=== PATIENT | male | born 1960 | race Caucasian/White ===

== ENCOUNTER 2017-10-26 13:36 | Inpatient (IN) ==
--- NOTE | 2017-10-26 13:42 | Emergency Department Note ---
Disposition Clinical Impression: NSTEMI (non-ST elevated myocardial infarction) Disposition: Admitted As Inpatient Condition: Fair General Adult HPI - General Chief complaint: ED Chest Pain Stated complaint: chest pain Time Seen by Provider: 10/26/17 13:39 Nursing Notes Reviewed: Yes Vital Signs Reviewed: Yes - Related Data Home Medications Medication Instructions Recorded Confirmed Albuterol Sulfate [Albuterol 2 puff IH QID PRN 10/26/17 10/26/17 Inhaler] Aspirin 81 mg PO DAILY 10/26/17 10/26/17 Budesonide/Formoterol 80/4.5 1 puff IH BID 10/26/17 10/26/17 [Symbicort 80/4.5] Carvedilol 12.5 mg PO BID 10/26/17 10/26/17 NIFEdipine [Nifedipine ER] 60 mg PO DAILY 10/26/17 10/26/17 Nicotine Polacrilex [Nicotine 2 mg BC QID PRN 10/26/17 10/26/17 Lozenge] Omeprazole [PriLOSEC] 20 mg PO DAILY 10/26/17 10/26/17 Tiotropium [Spiriva] 18 mcg IH 0700 10/26/17 10/26/17 hydrOXYzine HCl [Hydroxyzine HCl] 50 mg PO HS PRN 10/26/17 10/26/17 Allergies Allergy/AdvReac Type Severity Reaction Status Date / Time Erythromycin Base Allergy Anaphylaxis Verified 10/26/17 13:53 shellfish derived Allergy Anaphylaxis Verified 10/26/17 13:53 Course Vital Signs Temperature 98.1 F 10/26/17 13:39 Pulse Rate 79 10/26/17 13:39 Respiratory Rate 14 10/26/17 13:39 Blood Pressure 162/95 10/26/17 13:39 O2 Sat by Pulse Oximetry 97 10/26/17 13:39 Temperature 98.1 F 10/26/17 13:39 Pulse Rate 78 10/26/17 15:07 Respiratory Rate 16 10/26/17 15:07 Blood Pressure 160/90 10/26/17 15:07 O2 Sat by Pulse Oximetry 91 10/26/17 15:07 Oxygen Delivery Oxygen Delivery Room Air Medical Decision Making - MDM Narrative Medical decision making narrative: This documentation is done with the assistance of Dragon dictation. Despite efforts made to ensure accuracy, there may be inaccuracies in director of programming or spelling and typographical errors. I examined this patient and my medical decision-making was reviewed with the Resident Physician. I agree with the documented findings, disposition and treatment plan as described except to the extent set forth below. Patient presents today from the [facility], he was seen by Dr. Richey and myself, I agree with her evaluation and management plan, supervise care the patient's stay. Patient presented with follow-up with cardiology. He said they did an EKG and may have saw something abnormal and he was then sent to the urgent care who did a troponin that was 0.2 and they sent him over here. He denies any chest pain that he says is chronic pain it is difficult to tell if he has any pain in his chest or not. He did receive aspirin and nitroglycerin. Renalin do labs on him chest x-ray nitroglycerin trial and a workup he most likely will need admission. He is in agreement with this plan. 1420 hrs.: Patient in EKG performed shows a sinus rhythm, rate is 76, QRS is 91 , QTC is 44, left ventricular hypertrophy, does have Q waves in inferior leads. We have no old EKG here, however compared to the EKG done over there today +1 that was done 2017 about seeing acute changes. Chest X-Ray 10/26/17 13:40 IMPRESSION: Cardiomegaly. No radiographic evidence of acute pulmonary disease. D/ / Km Tafoya / Km Tafoya Interpreting Provider: Km Tafoya 1500 hrs.: Lab called patient's troponin is up to 0.37. Nitroglycerin trial and process. Were started him on heparin and speak with cardiology. We will also repeat an EKG. 1600 hrs.: Cardiology evaluated the patient and determined that since his troponin elevated. And with his history he would go to the [facility] dictating to the [facility] then he will be admitted to the hospital. Patient's in agreement this plan. Patient's critical care time exclusive any separately billable procedures is 40 minutes. He is started on IV heparin also. - Lab Data Result diagrams: 10/26/17 14:28 10/26/17 14:28 Lab Results 10/26/17 10/26/17 10/26/17 Range/Units 14:28 14:28 14:28 WBC 12.4 H (4.3-11.1) K/mcL RBC 4.52 (4.19-5.50) M/mcL Hgb 13.3 (12.9-16.9) g/dL Hct 40.7 (37.5-50.1) % MCV 90.0 (83.0-100.0) fL MCH 29.4 (28.0-33.3) pg MCHC 32.7 (31.6-35.5) g/dL RDW 13.5 (11.5-14.5) % Plt Count 254 (140-400) K/mcL MPV 10.8 (9.4-12.4) fL Immature Gran % 0.3 (0-4) % Seg Neutrophils % 68.1 % Lymphocytes % 21.4 % Monocytes % 7.2 % Eosinophils % 2.4 % Basophils % 0.6 % Neutrophils # 8.4 (1.6-8.9) K/mcL Lymphocytes # 2.7 (0.6-4.6) K/mcL Monocytes # 0.9 (0.0-1.3) K/mcL Eosinophils # 0.3 (0.0-0.6) K/mcL Basophils # 0.1 (0.0-0.2) K/mcL PT (9.4-12.1) Seconds INR APTT (26.0-36.0) Seconds Sodium 138 (136-145) mEq/L Potassium 3.8 (3.5-5.1) mEq/L Chloride 109 H (98-107) mEq/L Carbon Dioxide 22 L (23-29) mEq/L BUN 13 (6-20) mg/dL Creatinine 1.32 H (0.70-1.30) mg/dL Est GFR ( Amer) > 60 (> 60) Est GFR (Non-Af Amer) 56 L (> 60) BUN/Creatinine Ratio 10 (6-26) Glucose 100 (70-105) mg/dL Calculated Osmolality 286 (280-300) Calcium 9.3 (8.6-10.3) mg/dL Troponin I 0.37 H* (< 0.04) ng/mL B-Natriuretic Peptide (Less than 100) pg/mL 10/26/17 10/26/17 Range/Units 14:28 14:28 WBC (4.3-11.1) K/mcL RBC (4.19-5.50) M/mcL Hgb (12.9-16.9) g/dL Hct (37.5-50.1) % MCV (83.0-100.0) fL MCH (28.0-33.3) pg MCHC (31.6-35.5) g/dL RDW (11.5-14.5) % Plt Count (140-400) K/mcL MPV (9.4-12.4) fL Immature Gran % (0-4) % Seg Neutrophils % % Lymphocytes % % Monocytes % % Eosinophils % % Basophils % % Neutrophils # (1.6-8.9) K/mcL Lymphocytes # (0.6-4.6) K/mcL Monocytes # (0.0-1.3) K/mcL Eosinophils # (0.0-0.6) K/mcL Basophils # (0.0-0.2) K/mcL PT 11.6 (9.4-12.1) Seconds INR 1.1 APTT 36.5 H (26.0-36.0) Seconds Sodium (136-145) mEq/L Potassium (3.5-5.1) mEq/L Chloride (98-107) mEq/L Carbon Dioxide (23-29) mEq/L BUN (6-20) mg/dL Creatinine (0.70-1.30) mg/dL Est GFR ( Amer) (> 60) Est GFR (Non-Af Amer) (> 60) BUN/Creatinine Ratio (6-26) Glucose (70-105) mg/dL Calculated Osmolality (280-300) Calcium (8.6-10.3) mg/dL Troponin I (< 0.04) ng/mL B-Natriuretic Peptide 145 H (Less than 100) pg/mL
[2017-10-26 14:42] LABS: Basophils # 0.1 K/mcL (0.0-0.2); Basophils % 0.6 %; Eosinophils # 0.3 K/mcL (0.0-0.6); Eosinophils % 2.4 %; Hematocrit 40.7 % (37.5-50.1); Hemoglobin 13.3 g/dL (12.9-16.9); Immature Granulocytes % 0.3 % (0-4); Lymphocytes # 2.7 K/mcL (0.6-4.6); Lymphocytes % 21.4 %; Mean Corpuscular HGB Conc 32.7 g/dL (31.6-35.5); Mean Corpuscular Hemoglobin 29.4 pg (28.0-33.3); Mean Platelet Volume 10.8 fL (9.4-12.4); Monocytes # 0.9 K/mcL (0.0-1.3); Monocytes % 7.2 %; Neutrophils # 8.4 K/mcL (1.6-8.9); Platelet Count 254 K/mcL (140-400); Red Blood Count 4.52 M/mcL (4.19-5.50); Red Cell Distribution Width 13.5 % (11.5-14.5); Segmented Neutrophils % 68.1 %
[2017-10-26 14:54] LABS: BUN/Creatinine Ratio 10 (6-26); Blood Urea Nitrogen 13 mg/dL (6-20); Calcium 9.3 mg/dL (8.6-10.3); Carbon Dioxide 22 mEq/L (23-29); Chloride 109 mEq/L (98-107); Glucose 100 mg/dL (70-105); Osmolality,Calculated 286 (280-300); Potassium 3.8 mEq/L (3.5-5.1); Sodium 138 mEq/L (136-145); eGFR For African Americans > 60 (> 60); eGFR For Non-African Americans 56 (> 60)
[2017-10-26] MEDS ORDERED: Nitroglycerin 0.4 MG TAB.SUBL SL PRN (14:56)
[2017-10-26] MEDS ORDERED: *HR* Heparin 5,000 UNIT/ML VIAL IVP ONE ×3 (15:02→19:51)
[2017-10-26] MEDS ORDERED: *HR* Heparin 5,000 UNIT/ML VIAL IVP PRN ×5 (15:02→19:51)
[2017-10-26] MEDS ORDERED: 0.9 % Sodium Chloride 500 ML ONE (15:14)
[2017-10-26] MEDS ORDERED: Heparin 25,000 UNIT/500 ML D5W 25,000 UNIT/500 ML BAG IVC SCH (15:15)
[2017-10-26 15:19] LABS: INR 1.1; Prothrombin Time 11.6 Seconds (9.4-12.1)
[2017-10-26 15:22] LABS: Activated Partial Thrombo Time 36.5 Seconds (26.0-36.0)
[2017-10-26] MEDS ORDERED: Heparin 1,000 UNITS/500 mL 500 ML ONE (15:45)
[2017-10-26] MEDS ORDERED: 0.9 % Sodium Chloride 1,000 ML ONE (15:45)
[2017-10-26] MEDS ORDERED: *HR* Midazolam HCl 2 MG/2 ML VIAL ONE ×2 (15:45→16:34)
[2017-10-26] MEDS ORDERED: ISOVUE-370 200 ML INFUS..BTL IV ONE (15:46)
[2017-10-26] MEDS ORDERED: *HR* Heparin 10,000 UNIT/10 ML VIAL ONE (15:46)
[2017-10-26] MEDS ORDERED: Nitroglycerin 1,000 MCG/10 ML VIAL IV ONE (15:46)
[2017-10-26] MEDS ORDERED: *HR* Bivalirudin 250 MG VIAL IVC ONE (16:02)
[2017-10-26] MEDS ORDERED: methylPREDNISolone 125 MG/2 ML VIAL ONE (16:03)
--- NOTE | 2017-10-26 16:03 | Cardiology Consult Note ---
<Gisel Garcia - Last Filed: 10/26/17 16:04> Date of Encounter: 10/26/17 Time of Encounter: 16:02 Assessment and Plan (1) NSTEMI (non-ST elevated myocardial infarction) Current Visit: Yes Status: Acute Per cardiology: -Troponin at [place] 0.2, [facility] 0.[facility]. -Admits to current chest pain. -NItro drip and heparin drip ordered. -On asa, statin, beta quintin at home. -Urgent LHC for active chest pain, NSTEMI. RIsks versus benefits of LHC explained to pateint. Pateint states understanding and agreeable to proceed. -Recommend continuing home beta quinitn, asa, statin. -TTE. -Further recommendations pending LHC. Discussion w patient/family: The assessment and plan as outlined above was discussed with the patient who expressed understanding and agreement. All questions were answered. Thank you for involving us in the care of your patient. Please call with any questions. Discussed and reviewed with . History of Present Illness Consult date: 10/26/17 Requesting physician: Luis Juarez Consult reason: chest pain, nstemi Chief complaint: chest pain History of present illness: Mr. Freeman is a 57 year old male with a relevant past medical history of nephrectomy, HTN, family history of CAD. Patient presented to [facility] for chest pain. Troponin at [facility] noted to be 0.2. Patient admits to current chest pain 02/12. States he has chronic chest pain, however states this is worse than baseline. Also reports increased shortness of breath and increased fatigue. Patient reports his brother just had an ME and stenting 08/2017. Past Med Surg Social Fam HX - Past Medical History Attestation: Yes The following information was validated with the patient. Source: patient, old records reviewed Medical history: cancer, COPD, hypertension Psychiatric history: anxiety, depression - Social History Smoking Status: Current every day smoker Smokeless Tobacco Status: No Alcohol use: none Drug use: marijuana Medications and Allergies Albuterol Sulfate [Albuterol Inhaler] 2 puff IH QID PRN 10/26/17 [History] Aspirin 81 mg PO DAILY 10/26/17 [History] Budesonide/Formoterol 80/4.5 [Symbicort 80/4.5] 1 puff IH BID 10/26/17 [History ] Carvedilol 12.5 mg PO BID 10/26/17 [History] NIFEdipine [Nifedipine ER] 60 mg PO DAILY 10/26/17 [History] Nicotine Polacrilex [Nicotine Lozenge] 2 mg BC QID PRN 10/26/17 [History] Omeprazole [PriLOSEC] 20 mg PO DAILY 10/26/17 [History] Tiotropium [Spiriva] 18 mcg IH 0700 10/26/17 [History] hydrOXYzine HCl [Hydroxyzine HCl] 50 mg PO HS PRN 10/26/17 [History] 3 Allergy/AdvReac Type Severity Reaction Status Date / Time Erythromycin Base Allergy Anaphylaxis Verified 10/26/17 13:53 shellfish derived Allergy Anaphylaxis Verified 10/26/17 13:53 All Systems Review: The remainder of the systems were reviewed and are negative - Constitutional Constitutional: fatigue - Cardiovascular Cardiovascular: as per HPI, chest pain at rest, chest pain with exertion, dyspnea on exertion Physical Examination Vital Signs, Last 4 Hours Temp Pulse Resp BP Pulse Ox 10/26/17 15:07 78 16 160/90 91 10/26/17 13:39 98.1 F 79 14 162/95 97 General: Conversant, No Apparent Distress HEENT: Atraumatic, Normocephaly, Mucus Membranes Moist Neck: No JVD, Normal carotid pulses Cardiac: Reg Rate and Rhythm, Normal S1 and S2, No Murmur Lungs: Normal Breath Sounds, No Wheeze, Rales, Rhonchi Neuro: Alert and responsive, No focal deficits noted Abdomen: Soft, Non-Tender Skin: No rashes noted on visualized skin Musculoskeletal: No Chest Wall Tenderness Extremities: No Clubbing, No Cyanosis, Normal Pulses, Other (Mild bilateral pedal edema noted, non-pitting. ) Results 10/26/17 14:28 10/26/17 14:28 Lab Results Impressions Chest X-Ray 10/26/17 13:40 IMPRESSION: Cardiomegaly. No radiographic evidence of acute pulmonary disease. D/ / Km Tafoya / Km Tafoya Interpreting Provider: Km Tafoya Active Medications Heparin Sodium/Dextrose (Heparin 25,000 Unit/500 Ml D5w) 25,000 unit in 500 mls @ 19.809 mls/hr IVC .Q24H KIRSTIN; 10.3 UNIT/KG/HR PRN Reason: Protocol Stop: 04/27/18 15:16 Last Admin: 10/26/17 15:56 Dose: 10.3 unit/kg/hr, 19.809 mls/hr Nitroglycerin (Nitroglycerin) 0.4 mg SL Q5MIN PRN PRN Reason: Chest Pain Stop: 04/27/18 14:57 Last Admin: 10/26/17 15:18 Dose: 0.4 mg Laboratory Tests 10/26/17 10/26/17 10/26/17 14:28 14:28 14:28 WBC 12.4 H Creatinine 1.32 H Troponin I 0.37 H* - Imaging and Cardiology Chest Xray: report reviewed Cardiac cath: pending - EKG Interpretation EKG results cardiology: personally reviewed (ECG with SR) Consult Discharge Plan - Plan <Grover Alvarado - Last Filed: 10/27/17 07:26> Date of Encounter: 10/27/17 - Attending Attestation 57 [facility] and found to have elevated troponins. Patient is poor historian indicates senior living chest pain mixed with upper back and neck pain. Peak troponin .[address] changes on EKG. NSTEMI Peak troponin .[address] changes LHC, R/B/A discussed with pt and he agrees to proceed Assessment and Plan Discussion w patient/family: The assessment and plan as outlined above was discussed with the patient and/or family members who expressed understanding and agreement. All questions were answered. Thank you for involving us in the care of your patient. Please call with any questions. History of Present Illness History of present illness: Mr. Freeman is a 57 year old male All Systems Review: The remainder of the systems were reviewed and are negative Physical Examination Vital Signs, Last 4 Hours Temp Pulse Resp BP 10/27/17 04:20 98.6 F 62 17 143/91 Results 10/27/17 03:03 10/27/17 03:03 Lab Results 10/26/17 10/26/17 10/27/17 19:58 19:58 03:03 WBC 9.0 7.1 Hgb 13.5 13.2 Hct 42.0 40.8 Plt Count 241 232 INR 1.1 APTT 38.0 H Sodium Potassium Chloride Carbon Dioxide BUN Creatinine Glucose Calcium Magnesium 10/27/17 10/27/17 03:03 03:03 WBC Hgb Hct Plt Count INR APTT 58.6 H D Sodium 139 Potassium 3.7 Chloride 107 Carbon Dioxide 25 BUN 12 Creatinine 1.45 H Glucose 93 Calcium 8.7 Magnesium 1.9
--- NOTE | 2017-10-26 16:07 | Emergency Department Note ---
Disposition Clinical Impression: NSTEMI (non-ST elevated myocardial infarction) Disposition: Admitted As Inpatient Condition: Fair Referrals: NONE,PCP [Non-Partnered Physician] - Rei Trejo [Partnered Physician] - Forms: ED Satisfaction Letter Time of Disposition: 16:17 Chest Pain HPI - General Chief Complaint: ED Chest Pain Stated Complaint: chest pain Time Seen by Provider: 10/26/17 13:39 Source: patient, EMS Limitations: no limitations Vital Signs Reviewed: Yes Nursing Notes Reviewed: Yes - History of Present Illness HPI Narrative: Patient is a 57-year-old male who presents to [facility] ED from [place] [facility]. States he has a history of chronic chest pain and chronic back pain. He was in an outpatient appointment with a uniform cap operator who sent [place] over to the [place] care with concern for his symptoms. Lab work there showed an elevated troponin of 0.20. He was then sent over to our emergency department for further workup. Upon arrival, patient states he is still having chest pain but this is the pain he always has. Denies any nausea, vomiting, fever or chills. No recent illnesses. No abdominal pain, problems with urination or bowel movements. Pt complaint: chest pain Onset (ago): unknown Duration: constant Onset: during rest Pain Location: left chest Severity scale (1-10): 7 Quality: aching Pain Radiation: none Improves with: nothing Worsens with: nothing Associated symptoms: Denies: nausea, vomiting, dyspnea, fever, cough Treatments prior to arrival chest pain: none - Related Data Home Medications Medication Instructions Recorded Confirmed Albuterol Sulfate [Albuterol 2 puff IH QID PRN 10/26/17 10/26/17 Inhaler] Aspirin 81 mg PO DAILY 10/26/17 10/26/17 Budesonide/Formoterol 80/4.5 1 puff IH BID 10/26/17 10/26/17 [Symbicort 80/4.5] Carvedilol 12.5 mg PO BID 10/26/17 10/26/17 NIFEdipine [Nifedipine ER] 60 mg PO DAILY 10/26/17 10/26/17 Nicotine Polacrilex [Nicotine 2 mg BC QID PRN 10/26/17 10/26/17 Lozenge] Omeprazole [PriLOSEC] 20 mg PO DAILY 10/26/17 10/26/17 Tiotropium [Spiriva] 18 mcg IH 0700 10/26/17 10/26/17 hydrOXYzine HCl [Hydroxyzine HCl] 50 mg PO HS PRN 10/26/17 10/26/17 Allergies Allergy/AdvReac Type Severity Reaction Status Date / Time Erythromycin Base Allergy Anaphylaxis Verified 10/26/17 13:53 shellfish derived Allergy Anaphylaxis Verified 10/26/17 13:53 All systems ED: reviewed and negative except as stated. Chest Pain PMH - Past Medical History Medical history: Reports: cancer, COPD, hypertension Psychiatric history: Reports: anxiety, depression - Social History Smoking Status: Current every day smoker Alcohol use: Reports: none Drug use: Reports: marijuana Physical Exam - General Limitations: no limitations General appearance: alert, in no apparent distress - Head Head exam: atraumatic, normocephalic, normal inspection - Eye Eye exam: Present: normal appearance, PERRL, EOMI - ENT ENT exam: normal exam, normal oropharynx, mucous membranes moist - Neck Neck exam: Present: normal inspection, full ROM, trachea midline - Chest Chest inspection: Present: normal inspection, symmetric chest wall rise - Respiratory Respiratory exam: Present: normal lung sounds bilaterally - Cardiovascular Cardiovascular exam: Present: regular rate, normal rhythm, normal heart sounds - Abdominal Exam Abdominal exam: Present: soft, Non-Tender. Absent: tenderness, distention, guarding, rebound, rigidity - Extremities Exam Extremities exam: Present: normal inspection, full ROM. Absent: tenderness, pedal edema - Neurological Exam Neurological exam: Present: alert, oriented X3 - Psychiatric Psychiatric exam: Present: normal affect, normal mood - Skin Skin exam: Present: warm, dry, intact, normal color Course Course Narrative: Patient seen and examined. Chest pain that is chronic in nature. Does have an elevated troponin. Cardiopulmonary work up initiated. Patient received an [place] the [place]. Nitroglycerin ordered as well. We will reassess. - Reevaluation(s) Reevaluation #1: Lab work shows troponin elevated at 0.37. We will treat as an NSTEMI. Heparin drip ordered. I discussed with cardiology Dr. Alvarado who will see the patient in consult. After seeing the patient, they decided to take the patient to the [facility]. I discussed with hospitalist who has accepted patient for admission. Time: 16:16 Vital Signs Temperature 98.1 F 10/26/17 13:39 Pulse Rate 79 10/26/17 13:39 Respiratory Rate 14 10/26/17 13:39 Blood Pressure 162/95 10/26/17 13:39 O2 Sat by Pulse Oximetry 97 10/26/17 13:39 Temperature 98.1 F 10/26/17 13:39 Pulse Rate 78 10/26/17 15:07 Respiratory Rate 16 10/26/17 15:07 Blood Pressure 160/90 10/26/17 15:07 O2 Sat by Pulse Oximetry 91 10/26/17 15:07 Oxygen Delivery Oxygen Delivery Room Air Chest Pain - Medical Records Medical records reviewed: Yes I reviewed the patient's medical records. - Lab Data Lab results reviewed: Yes I reviewed the patient's lab results. Result diagrams: 10/26/17 14:28 10/26/17 14:28 Lab Results 10/26/17 10/26/17 10/26/17 Range/Units 14:28 14:28 14:28 WBC 12.4 H (4.3-11.1) K/mcL RBC 4.52 (4.19-5.50) M/mcL Hgb 13.3 (12.9-16.9) g/dL Hct 40.7 (37.5-50.1) % MCV 90.0 (83.0-100.0) fL MCH 29.4 (28.0-33.3) pg MCHC 32.7 (31.6-35.5) g/dL RDW 13.5 (11.5-14.5) % Plt Count 254 (140-400) K/mcL MPV 10.8 (9.4-12.4) fL Immature Gran % 0.3 (0-4) % Seg Neutrophils % 68.1 % Lymphocytes % 21.4 % Monocytes % 7.2 % Eosinophils % 2.4 % Basophils % 0.6 % Neutrophils # 8.4 (1.6-8.9) K/mcL Lymphocytes # 2.7 (0.6-4.6) K/mcL Monocytes # 0.9 (0.0-1.3) K/mcL Eosinophils # 0.3 (0.0-0.6) K/mcL Basophils # 0.1 (0.0-0.2) K/mcL PT (9.4-12.1) Seconds INR APTT (26.0-36.0) Seconds Sodium 138 (136-145) mEq/L Potassium 3.8 (3.5-5.1) mEq/L Chloride 109 H (98-107) mEq/L Carbon Dioxide 22 L (23-29) mEq/L BUN 13 (6-20) mg/dL Creatinine 1.32 H (0.70-1.30) mg/dL Est GFR ( Amer) > 60 (> 60) Est GFR (Non-Af Amer) 56 L (> 60) BUN/Creatinine Ratio 10 (6-26) Glucose 100 (70-105) mg/dL Calculated Osmolality 286 (280-300) Calcium 9.3 (8.6-10.3) mg/dL Troponin I 0.37 H* (< 0.04) ng/mL B-Natriuretic Peptide (Less than 100) pg/mL 10/26/17 10/26/17 Range/Units 14:28 14:28 WBC (4.3-11.1) K/mcL RBC (4.19-5.50) M/mcL Hgb (12.9-16.9) g/dL Hct (37.5-50.1) % MCV (83.0-100.0) fL MCH (28.0-33.3) pg MCHC (31.6-35.5) g/dL RDW (11.5-14.5) % Plt Count (140-400) K/mcL MPV (9.4-12.4) fL Immature Gran % (0-4) % Seg Neutrophils % % Lymphocytes % % Monocytes % % Eosinophils % % Basophils % % Neutrophils # (1.6-8.9) K/mcL Lymphocytes # (0.6-4.6) K/mcL Monocytes # (0.0-1.3) K/mcL Eosinophils # (0.0-0.6) K/mcL Basophils # (0.0-0.2) K/mcL PT 11.6 (9.4-12.1) Seconds INR 1.1 APTT 36.5 H (26.0-36.0) Seconds Sodium (136-145) mEq/L Potassium (3.5-5.1) mEq/L Chloride (98-107) mEq/L Carbon Dioxide (23-29) mEq/L BUN (6-20) mg/dL Creatinine (0.70-1.30) mg/dL Est GFR ( Amer) (> 60) Est GFR (Non-Af Amer) (> 60) BUN/Creatinine Ratio (6-26) Glucose (70-105) mg/dL Calculated Osmolality (280-300) Calcium (8.6-10.3) mg/dL Troponin I (< 0.04) ng/mL B-Natriuretic Peptide 145 H (Less than 100) pg/mL - Radiology Data Radiology results reviewed: Yes I reviewed the patient's radiology results. Chest X-Ray 10/26/17 13:40 IMPRESSION: Cardiomegaly. No radiographic evidence of acute pulmonary disease. D/ / Km Tafoya / Km Tafoya Interpreting Provider: Km Tafoya Heart Score - Score History: Slightly Suspicious EKG: Non Specific repolarisation Disturbance Age: 45-65 Risk Factors: 1-2 risk factors Troponin: Greater than 3x normal limit HEART Score Total: 5
--- NOTE | 2017-10-26 16:12 | Electrocardiograph Report ---
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
--- NOTE | 2017-10-26 16:24 | Pre-Sedation Evaluation ---
Pre-sedation evaluation - Pre-sedation checklist Date of procedure: 10/26/17 Procedure: left heart cath Recent Vitals: Last Vital Signs Temp 98.1 F 10/26/17 13:39 Pulse 78 10/26/17 15:07 Resp 16 10/26/17 15:07 BP 160/90 10/26/17 15:07 Pulse Ox 91 10/26/17 15:07 H&P (including ROS) documented in medical record: Yes Previous reaction to sedatives/anesthetics: No Dietary Status: NPO 6 hours prior to procedure Airway Assessment: Patient can open mouth completely, TMJ function normal Dentition: No loose teeth or bridges Possible difficult airway: No ASA Classification *see protocol: CLASS III-Severe systemic disease Plan of Care: Pt appropriate candidate for procedure/moderate/conscious sedation , Risks/benefits of procedure/sedation discussed w/ patient/family, If not NPO; Risk of intake outweiged by necessity to perform procedure
[2017-10-26] MEDS ORDERED: Acetaminophen 325 MG TABLET PO PRN (16:26)
[2017-10-26] MEDS ORDERED: Naloxone 0.4 MG/ML INJ IVP PRN (16:26)
[2017-10-26] MEDS ORDERED: hydrOXYzine pamoate 25 MG CAPSULE PO PRN (16:28)
--- NOTE | 2017-10-26 16:32 | Internal Med History&Physical ---
Date of Encounter: 10/26/17 Time of Encounter: 16:30 Assessment and Plan (1) NSTEMI (non-ST elevated myocardial infarction) Current visit: No Status: Acute On heparin and nitro drip. Plans for [facility]. Already on ASA and Coreg at home. Will add statin. Rest of cardiac meds adjustments per cardiology. TTE ordered per cardio. Admit to tele. (2) HTN (hypertension) Current visit: No Status: Acute Resume Coreg. BP is elevatd at 160/90. Will see what it is post heart cath and make adjustments as needed. Also on Nifedipine Qualifiers: Hypertension type: essential hypertension Qualified Code(s): I10 - Essential (primary) hypertension (3) GERD (gastroesophageal reflux disease) Current visit: No Status: Acute on PPI Qualifiers: Esophagitis presence: without esophagitis Qualified Code(s): K21.9 - Gastro -esophageal reflux disease without esophagitis (4) DVT prophylaxis Current visit: No Status: Acute heparin drip currently Internal Medicine - H&P: HPI Chief complaint: Chest pain Admitted From: Home Plans for Post Hospital Care: Home History of present illness: Mr. Freeman is a 57 year old male with PMH of HTN and COPD, tobacco abuse who [facility] that is worse than his baseline. Has chronic chest pain. Trops were noted to be elevated at .2 and was sent here. EKG with no acute ST or T wave changes. Repeat trop went up to .37. Hemodynamcially stable. Was started on a heparin and Nitro drip and cardiology were contacted and are taking him to laboratory courier for left heart catheterization. Denies fever, chilss, headache, blurry vision, nausea, vomiting, shortness of breath, abdomainl pain, urinary symptoms, or neurological symptoms. Past Med Surg Social Fam HX - Past Medical History Medical history: cancer, COPD, hypertension Psychiatric history: anxiety, depression - Social History Smoking Status: Current every day smoker Smokeless Tobacco Status: No Alcohol use: none Drug use: marijuana Internal Medicine - H&P: Meds Albuterol Sulfate [Albuterol Inhaler] 2 puff IH QID PRN 10/26/17 [History] Aspirin 81 mg PO DAILY 10/26/17 [History] Budesonide/Formoterol 80/4.5 [Symbicort 80/4.5] 1 puff IH BID 10/26/17 [History ] Carvedilol 12.5 mg PO BID 10/26/17 [History] NIFEdipine [Nifedipine ER] 60 mg PO DAILY 10/26/17 [History] Nicotine Polacrilex [Nicotine Lozenge] 2 mg BC QID PRN 10/26/17 [History] Omeprazole [PriLOSEC] 20 mg PO DAILY 10/26/17 [History] Tiotropium [Spiriva] 18 mcg IH 0700 10/26/17 [History] hydrOXYzine HCl [Hydroxyzine HCl] 50 mg PO HS PRN 10/26/17 [History] 3 Allergy/AdvReac Type Severity Reaction Status Date / Time Erythromycin Base Allergy Anaphylaxis Verified 10/26/17 13:53 shellfish derived Allergy Anaphylaxis Verified 10/26/17 13:53 All Systems PM: A 10-system review of systems was performed and is negative for pertinent findings except as documented above in the HPI. Review of systems: All systems reviewed are negative except for what is mentioned above - Constitutional Vitals: Temp Pulse Resp BP Pulse Ox 98.1 F 78 16 160/90 91 10/26/17 13:39 10/26/17 15:07 10/26/17 15:07 10/26/17 15:07 10/26/17 15:07 Exam: GEN: NAD HEENT: AT, NC, No cyanosis, oral mucosa is moist, No JVD Lymphatics: No lymphadenoapthy Eyes: Extrocular muscles intact, anicteric CVS:RRR. S1, S2, No m/r/g RESP: CTAB ABD: Soft, NT, ND, +BS EXT: 2+ LE edema, No rashes, 2+ DP NEURO: Nonfocal, CN II-XII intact, No focal motor or sensory deficits Psych: Cooperative, Not anxious or depressed Internal Med - H&P Results - Labs CBC & Chem 7: 10/26/17 14:28 10/26/17 14:28 Labs: Short CBC 10/26/17 Range/Units 14:28 WBC 12.4 H (4.3-11.1) K/mcL Hgb 13.3 (12.9-16.9) g/dL Hct 40.7 (37.5-50.1) % Plt Count 254 (140-400) K/mcL Neutrophils # 8.4 (1.6-8.9) K/mcL BMP 10/26/17 14:28 Sodium 138 Potassium 3.8 Chloride 109 H Carbon Dioxide 22 L BUN 13 Creatinine 1.32 H Glucose 100 Calcium 9.3 Cardiac Enzymes 10/26/17 Range/Units 14:28 Troponin I 0.37 H* (< 0.04) ng/mL - Impressions ITS Impressions Chest X-Ray 10/26/17 13:40 IMPRESSION: Cardiomegaly. No radiographic evidence of acute pulmonary disease. D/ / Km Tafoya / Km Tafoya Interpreting Provider: Km Tafoya
--- NOTE | 2017-10-26 16:44 | Event Note ---
Date of Encounter: 10/26/17 Time of Encounter: 16:41 Patient was seen and examined. Agree with the H&P as written by Arvin Perdomo NP. Patient sent after HD with fatigue, nonproductive cough, decreased appetite, and shortness of breath. Temp 100.2 on arrival. Hypoxic 84% on RA. CXR with findings of pleural effusion and possibly infiltrate. Hypoxia is possibly multifactorial with volume overload and HCAP. Will treat as HCAP and ask nephrology to follow along. Labs are consistent with ESRD. Hgb 9.9 is around baseline. Likely anemia of chronic disease.
[2017-10-26] MEDS ORDERED: 0.9 % Sodium Chloride 1,000 ML IVC SCH (17:00)
--- NOTE | 2017-10-26 17:02 | Invasive Diagnostic Lab Proc ---
Name: Georges Freeman Segundo Date of Study: 10/26/2017 Date: 1960 Ht: 69.0in Medical Record#: [id number] Age: 57 Wt: 212.08lb Gender: Male BSA: 2.12 Order #: [id number] BMI: 31.3 Physicians Procedure Physician: Jm Henry DO Referring MD: Referring MD: Staff Name Position Time In Densie Lott RN Air Quality Technician 04:16 PM Nisha Gamble RN Nurse 04:17 PM Janet Bernal RT (R) Scrub 04:17 PM Sites, Tiffany RT (R) Monitor 04:17 PM Indications Indication Non-Stemi Procedures Performed Procedure L HRT ARTERY/VENTRICLE ANGIO Pre-Procedure Checklist Informed consent is complete signed and on chart. H&P is on chart. ID band is on and ID verified with patient. Patient NPO for procedure The procedure was described for the patient and questions were answered. Blood Pressure: 152/92 ECG is on chart. Rhythm: NSR Plan of Care Patient will tolerate the procedure without complications. Adequate level of comfort will be maintained. Hemodynamics will remain stable Patient will recover from procedure without complications. Respiratory function will be maintained. Cardiac rhythm will remain stable. Patient temperature will be maintained. Patient and/or family have verbalized understanding of the procedure. Patient Education Chief Complaint/Reason for Test: Cardiac Cath Developmental Category: Adult (18-64 years) Developmentally Appropriate for Age: Yes Learning Barriers: None Education Needs: Procedure Education Method: Verbal Information Taught: Cardiac Cath Educational Evaluation: Able to repeat information Intravenous Access Time IV Size Location DC'd Fluid/Drip Rate Units RN 20g 1 /" Patent On Arrival Lt Wrist 0.9NaCl 25 ml/hr Denise Lott RN Allergies Erythromycin Base shellfish derived Vital Signs Time BP (mmHg) HR (bpm) O2 Sat. RR (bpm) LOC 04:21 PM / % 5 = Fully awake and oriented or at pre-proc level 04:21 PM / % 4 = Oriented but drowsy 04:20 PM 152 / 92 92 92 % 23 04:24 PM 136 / 85 82 92 % 12 04:29 PM 136 / 82 76 88 % 24 04:34 PM 136 / 84 73 90 % 27 04:39 PM 143 / 76 75 85 % 30 04:44 PM 153 / 84 72 92 % 25 Procedural Medications Time Medication Dose Units Method Given By 04:21 PM Oxygen 2 L/min nasal cannula Denise Lott RN 04:21 PM Versed 2 mg Intravenous Denise Lott RN 04:34 PM Lidocaine 2% 10 ml Subcutaneous Jm Henry DO 04:35 PM Versed 1 mg Intravenous Denies Lott RN ASA Classification: CLASS III- Severe systemic disease (i.e. prior AMI, diabetes with vascular complications, morbid obesity) Bridget Score Preprocedure Postprocedure Activity 2- Moves 4 extremities sustained head lift Activity 2- Moves 4 extremities sustained head lift Circulation 2- SBP +/= 20 points of pre-anesthetic level Circulation 2- SBP +/= 20 points of pre-anesthetic level Consciousness 2- Awake and alert oriented x 3 Consciousness 2- Awake and alert oriented x 3 O2 Saturation 2- Able to maintain O2 satruation of 92% on room air O2 Saturation 2- Able to maintain O2 satruation of 92% on room air Respiratory 2- Able to deep breathe and cough well Respiratory 2- Able to deep breathe and cough well Total Score 10 Total Score 10 Contrast Agent: Isovue Diagnostic Contrast: 40 ml Total Contrast: 40 ml Fluoro Dose: 220 mGy Procedure Log Time Note Enter By 03:55 PM CathStat 04:00 PM Patient charges- Angio tray pack, Navilyst 3mm J, Pulse Oximetry and ACIST tubing and transducer [email or web address] 04:00 PM IV Supplies used: J loop Angio Cath. [email or web address] 04:00 PM Case Delayed No [email or web address] 04:13 PM Pt arrived to lab intern 2 at 16:13 No Family with Patient [email or web address] 04:15 PM Physician arrived 16:15 [email or web address] 04:15 PM Meet and greet completed [email or web address] 04:15 PM Sign in performed according to hospital policy. [email or web address] 04:17 PM Denise Lott RN Position: Air Quality Technician Time in: 16:16 [email or web address] 04:17 PM Nisha Gamble RN Position: Nurse Time in: 16:17 [email or web address] 04:17 PM Janet Bernal RT (R) Position: Scrub Time in: 16:17 [email or web address] 04:18 PM Tiffany Ortiz RT (R) Position: Monitor Time in: 16:17 [email or web address] 04:18 PM Hair removed from procedure site in holding area using clippers. Bilateral groin prepped with Chloraprep by Nisha Gamble RN, then patient was draped. Skin intact. [facility] 04:18 PM Case Start 04:18 PM Procedure start 16:18 [facility] 04:18 PM Vitals capture started with the following parameters, Patient=Adult, Interval=5 min, Initial Nwqsremy=844 mmHg, Deflation Rate=5 mmHg, Cuff placed on Right Arm 04:20 PM HR=92 bpm, PVKP=009/92 mmhg, SpO2=92.0 %, Resp=23 B/min 04:20 PM Recorded ECG: HR=85 Condition=Condition 1 04:21 PM Time: 16:21 Oxygen on at 2 L/min per nasal cannula by [facility] 04:21 PM Time: 16:21 Versed 2 mg Intravenous Given by Denise Lott RN psychiatric 04:21 PM Time: 16:21 Patient comfortable and pain free: Yes [facility] :21 PM Time: 16:21LOC: 5 = Fully awake and oriented or at pre-proc level tsites 04:21 PM Clinical Presentation: Non-STEMI tsites 04:24 PM HR=82 bpm, RXHK=601/85 mmhg, SpO2=92.0 %, Resp=12 B/min 04:24 PM Pressure channel 1 zeroed. 04:29 PM HR=76 bpm, WKBW=618/82 mmhg, SpO2=88.0 %, Resp=24 B/min 04:34 PM Time out performed according to hospital policy tsites 04:34 PM HR=73 bpm, UQTI=496/84 mmhg, SpO2=90.0 %, Resp=27 B/min 04:34 PM Time: 16:34 10 ml Lidocaine 2% to right groin Subcutaneous Given by Jm Henry DO tsites 04:35 PM Time: 16:35 Versed 1 mg Intravenous Given by Denise Lott [facility] 04:37 PM Time: 16:21LOC: 4 = Oriented but drowsy tsites 04:37 PM Time: 16:21 Patient comfortable and pain free: Yes tsites 04:37 PM Micro-Introducer Kit utilized for sheath placement tsites 04:37 PM Access obtained by percutaneous puncture. 6Fr 10cm Terumo Delano sheath placed in right Femoral artery. [id number] tsites 04:37 PM 6Fr FR 4 catheter inserted over the wire [facility] tsites 04:37 PM 0.035 145cm Navilyst 3mmJ wire [id number] tsites 04:38 PM Recorded Pressure: LV, HR=73, Condition=Condition 1 (Left Ventricle) LV 103/28/31 04:38 PM Recorded Pressure: LV, Ao, HR=78, Condition=Condition 1 (Left Ventricle) LV 98/37/36, (Aorta) Ao 128/82/102 04:39 PM Catheter selectively placed in left ventricle tsites 04:39 PM Bolus angiogram of left Ventricle complete: 5 mls hand injection tsites 04:39 PM RCA angiography performed in multiple views. tsites 04:39 PM HR=75 bpm, SELH=812/76 mmhg, SpO2=85.0 %, Resp=30 B/min 04:39 PM wire reinserted catheter removed tsites 04:40 PM 5Fr FL 4 catheter inserted over the wire DN tsites 04:40 PM Recorded Pressure: Ao, HR=69, Condition=Condition 1 (Aorta) Ao 119/75/96 04:40 PM LCA angiography performed in multiple views. tsites 04:42 PM wire reinserted catheter removed tsites 04:42 PM Coronary Dominance: right tsites 04:43 PM Lesion found in Proximal LAD. Pre Stenosis: 80 Pre MARCOS Flow: tsites 04:43 PM Lesion found in 1st Diagonal. Pre Stenosis: 70 Pre MARCOS Flow: tsites 04:44 PM Lesion found in 1st Marginal. Pre Stenosis: 70 Pre MARCOS Flow: tsites 04:44 PM Lesion found in Mid RCA. Pre Stenosis: 85 Pre MARCOS Flow: tsites 04:44 PM HR=72 bpm, LFQZ=069/84 mmhg, SpO2=92.0 %, Resp=25 B/min 04:44 PM Proximal Left Anterior Descending Coronary Artery with 80% stenosis. If graft is supplying this territory, 0 % stenosis. tsites 04:44 PM Mid/Distal Left Anterior Descending Coronary Artery and diagonal branches with 70% stenosis. If graft is supplying this area, 0 % stenosis tsites 04:44 PM Circumflex, Obtuse Marginal, Left Posterior Descending, and Left Posterolateral Coronary Arteries with 70 % stenosis. If graft is supplying this area, 0 % stenosis tsites 04:44 PM Right Coronary, Right Posterior Descending Arteries with Right Posterolateral and Acute Marginal branches with 85 % stenosis. If graft is supplying this area, 0 % stenosis tsites 04:45 PM Cardiothoracic surgeon consulted by physician tsites 04:45 PM Procedure completed at 16:45 tsites 04:46 PM Sign out completed: Radiation Dose 220 mGy Fluoro Time: 1.2 Isovue 370 - 200ml contrast 40 ml given by Jm Henry DO. Complications: NoneCardiac Rehab Consult needed: YesConfirmed administered medications: Yes tsites 04:46 PM Isovue 370 - 200ml,1 Bottle(s) used. tsites 04:46 PM Arterial sheath pulled, Angio-seal closure device used and was Successful S/N. tsites 04:46 PM Estimated Blood Loss: minimal tsites 04:46 PM Post ECG NSR tsites 04:46 PM Post Blood Pressure 153/84 tsites 04:46 PM 16:46 Post Pulses Bilateral DP & PT 1+ tsites 04:46 PM Information taught Cardiac Cath and Angioseal tsites 04:47 PM Education needs Procedure, Plan of Care, and Responsibilities of Patient in Care tsites 04:47 PM Learning barriers :None tsites 04:47 PM Education Methods Verbal tsites 04:47 PM Education evaluation Able to repeat information tsites 04:47 PM Site status No bleeding/hematoma - Rt Groin as reported by Janet Bernal RT (R) at 16:47 tsites 04:47 PM Opsite applied tsites 04:47 PM Plavix, Effient or Brilinta given No tsites 04:[address] Muir returned page . Will see patient in the morning tsites 04:49 PM no family at this time tsites 04:51 PM Report given to wu PITT Pt taken to 2NE Room #21. 16:50 tsites 04:51 PM Delay to floor No tsites 04:51 PM Patient out of room: 16:51 tsites Complications Complication None Hemodynamics Pressures Site Systolic/A Wave Diastolic/V Wave Mean LV 103 28 31 LV 98 37 36 AO 128 82 102 AO 119 75 96 Post Procedure Information Blood Pressure: 153/84 mmHg Rhythm: NSR Post procedural instructions were given Surgery consult for CABG Closure Device Time Device Success/Fail 10/26/2017 4:53:00 PM Angio-Seal VIP Successful Site Checks Time Location Status Staff Sheath In? Note 04:47 PM Rt Groin No bleeding/hematoma Janet Bernal RT (R) Pulses Time Site Pre-Procedure Post-Procedure Note Bilateral DP & PT 1+ 4:46:00 PM Bilateral DP & PT 1+ Updated by Tiffany Angel, RT (R) on 10/26/2017 4:54:07 PM Tiffany Angel RT electronically signed on 10/26/2017 4:55:16 PM with status of Final
--- NOTE | 2017-10-26 19:43 | Event Note ---
Date of Encounter: 10/26/17 Time of Encounter: 19:42 Patient with multivessel disease noted on [facility]. cardiothorcics consulted. Will be seen tomorrow. Will give a one time dose of lasix 40 mg IV due to hypoxia and LE edema. BNP was 145 on admitssion
[2017-10-26] MEDS ORDERED: Furosemide 40 MG/4 ML VIAL IVP SCH (19:45)
[2017-10-26 20:12] LABS: Hemoglobin 13.5 g/dL (12.9-16.9); Mean Corpuscular HGB Conc 32.1 g/dL (31.6-35.5); Mean Corpuscular Volume 90.1 fL (83.0-100.0); Mean Platelet Volume 10.6 fL (9.4-12.4); Platelet Count 241 K/mcL (140-400); Red Blood Count 4.66 M/mcL (4.19-5.50); Red Cell Distribution Width 13.6 % (11.5-14.5)
[2017-10-26 20:13] LABS: INR 1.1; Prothrombin Time 11.9 Seconds (9.4-12.1)
[2017-10-26] MEDS: Budesonide/Formoterol 80/4.5 MDI IH SCH (20:32)
[2017-10-26] MEDS: *HR* HYDROcodone/Acet 5/325 mg TABLET PO PRN (21:03)
[2017-10-26] MEDS: Heparin 25,000 UNIT/500 ML D5W 25,000 UNIT/500 ML BAG IVC SCH (21:18)
[2017-10-27 03:39] LABS: Basophils # 0.1 K/mcL (0.0-0.2); Eosinophils # 0.3 K/mcL (0.0-0.6); Hematocrit 40.8 % (37.5-50.1); Hemoglobin 13.2 g/dL (12.9-16.9); Immature Granulocytes % 0.1 % (0-4); Lymphocytes # 2.2 K/mcL (0.6-4.6); Lymphocytes % 31.4 %; Mean Corpuscular HGB Conc 32.4 g/dL (31.6-35.5); Mean Corpuscular Hemoglobin 29.3 pg (28.0-33.3); Mean Corpuscular Volume 90.5 fL (83.0-100.0); Mean Platelet Volume 10.6 fL (9.4-12.4); Monocytes # 0.7 K/mcL (0.0-1.3); Monocytes % 10.1 %; Neutrophils # 3.8 K/mcL (1.6-8.9); Platelet Count 232 K/mcL (140-400); Red Blood Count 4.51 M/mcL (4.19-5.50); Red Cell Distribution Width 13.6 % (11.5-14.5); Segmented Neutrophils % 53.4 %
[2017-10-27] MEDS: *HR* HYDROcodone/Acet 5/325 mg TABLET PO PRN ×3 (03:44→20:15)
[2017-10-27 03:48] LABS: Hemoglobin A1C 5.3 %
[2017-10-27 03:59] LABS: BUN/Creatinine Ratio 8 (6-26); Blood Urea Nitrogen 12 mg/dL (6-20); Calcium 8.7 mg/dL (8.6-10.3); Carbon Dioxide 25 mEq/L (23-29); Chloride 107 mEq/L (98-107); Chol/HDL Ratio 5.8 (0-4.9); Cholesterol 214 mg/dL (< 200); Glucose 93 mg/dL (70-105); HDL Cholesterol 37 mg/dL (40-59); LDL Cholesterol,Calculated 149 mg/dL (0-99); Magnesium 1.9 mg/dL (1.6-2.6); Osmolality,Calculated 287 (280-300); Potassium 3.7 mEq/L (3.5-5.1); Sodium 139 mEq/L (136-145); Triglycerides 142 mg/dL (< 150); eGFR For African Americans > 60 (> 60); eGFR For Non-African Americans 50 (> 60)
[2017-10-27] MEDS: Budesonide/Formoterol 80/4.5 MDI IH SCH ×2 (07:45→20:30)
[2017-10-27] MEDS: Tiotropium 18 MCG inhalation IH SCH (07:46)
[2017-10-27] MEDS: NIFEdipine XL (24 HR) 60 MG TAB.ER.24 PO SCH (08:43)
[2017-10-27] MEDS: Aspirin 81 MG TAB.CHEW PO SCH (08:43)
--- NOTE | 2017-10-27 09:01 | Cardiology Progress Note ---
Date of Encounter: 10/27/17 Time of Encounter: 09:00 Assessment and Plan (1) NSTEMI (non-ST elevated myocardial infarction) Current Visit: No Status: Acute Per cardiology: Peak troponin 0.37. Status post catheterization by Dr. Henry yesterday showed severe three-vessel CAD: 80% LAD, 70% circumflex and 85% right coronary artery lesion. CT surgery saw patient-- he is evaluating CABG tomorrow. On Hep gtt. Appears clinically stable. Echo pending. On aspirin, statin, beta quintin. Appears to have not been on Plavix. Past medical history is notable for a left nephrectomy for kidney cancer 2012. Discussion w patient/family: The assessment and plan as outlined above was discussed with the patient and/or family members who expressed understanding and agreement. All questions were answered. Thank you for involving us in the care of your patient. Please call with any questions. Subjective Principal diagnosis: NSTEMI, CP, CAD Interval history: Patient reports left-sided chest pain worse with palpation-- indicates this is his chronic chest pain. Reports mild right groin soreness. Denies any other concerns or complaints. Objective Vital Signs, Last 4 Hours Temp Pulse Resp BP Pulse Ox 10/27/17 07:45 16 95 10/27/17 07:28 98.5 F 64 16 157/87 93 General: Conversant, No Apparent Distress HEENT: Atraumatic, Normocephaly, Mucus Membranes Moist Neck: No JVD, Normal carotid pulses Cardiac: Reg Rate and Rhythm, Normal S1 and S2, No Murmur Lungs: Normal Breath Sounds, No Wheeze, Rales, Rhonchi Neuro: Alert and responsive, No focal deficits noted Abdomen: Soft, Non-Tender Skin: No rashes noted on visualized skin, Other (Right groin site dry and intact , no hematoma, no ecchymosis, no bleeding, right DP and PT pulses 2+ palpable) Musculoskeletal: No Chest Wall Tenderness Extremities: No Clubbing, No Cyanosis, No Edema, Normal Pulses Results 10/27/17 03:03 10/27/17 03:03 Lab Results - Imaging and Cardiology Echo: pending Cardiac cath: report reviewed Consult Discharge Plan - Plan Referrals: NONE,PCP [Primary Care Provider] - Rei Trejo [Family Provider] -
--- NOTE | 2017-10-27 10:00 | Cardiothoracic Consult Note ---
Date of Encounter: 10/27/17 Time of Encounter: 09:57 Assessment and Plan (1) NSTEMI (non-ST elevated myocardial infarction) Current Visit: No Status: Acute The assessment and plan as outlined above was discussed with the patient and/or family members who expressed understanding and agreement. All questions were answered. The patient has significant triple-vessel disease and is a candidate for coronary artery bypass grafting. Risks of surgery include , infection, stroke, myocardial infarction, bleeding, clots around the heart, renal or respiratory failure, acute or chronic graft closure, phrenic nerve injury and sternal dehiscence. He would be at increased risk for renal problems because of his chronically elevated creatinine. The procedure, its risks, benefits and alternatives were explained and he wishes to consider. He wants to discuss with his family and will let us know his decision. At this point he has no questions. He is presently on a heparin drip. - History of Present Illness History of present illness: Mr. Freeman is a 57 year old male History of present illness. The patient is a 57-year-old gentleman who presented yesterday with chest pain. He did have a positive troponin up to 0.37. He does have a history of previous myocardial infarctions. Cardiac catheterization revealed triple-vessel disease with an 80% LAD, 70% circumflex and 85% right coronary artery lesion. Past medical history is notable for a left nephrectomy for kidney cancer done in 2012. No known recurrence. He has had kidney stones on the right which have been surgically removed. Creatinine today is elevated at 1.45. Past medical history is also notable for hypertension and hypercholesterolemia. He does have COPD and uses inhalers. He is not on oxygen at home. Social history. He lives in [place] with his partner. He is on disability. He is presently smoking less than 1 pack of cigarettes per day, but has smoked up to 1-1/2 packs per day in the past. Does not drink alcohol. Family history is positive for coronary artery disease in a brother and father. Review of systems is negative for stroke or TIA. Negative for saphenous vein varicosities or strippings. Past Med Surg Social Fam HX - Past Medical History Medical history: cancer, COPD, hypertension Psychiatric history: anxiety, depression - Social History Smoking Status: Current every day smoker Smokeless Tobacco Status: No Alcohol use: none Drug use: marijuana Medications and Allergies Albuterol Sulfate [Albuterol Inhaler] 2 puff IH QID PRN 10/26/17 [History] Aspirin 81 mg PO DAILY 10/26/17 [History] Budesonide/Formoterol 80/4.5 [Symbicort 80/4.5] 1 puff IH BID 10/26/17 [History ] Carvedilol 12.5 mg PO BID 10/26/17 [History] NIFEdipine [Nifedipine ER] 60 mg PO DAILY 10/26/17 [History] Nicotine Polacrilex [Nicotine Lozenge] 2 mg BC QID PRN 10/26/17 [History] Omeprazole [PriLOSEC] 20 mg PO DAILY 10/26/17 [History] Tiotropium [Spiriva] 18 mcg IH 0700 10/26/17 [History] hydrOXYzine HCl [Hydroxyzine HCl] 50 mg PO HS PRN 10/26/17 [History] 3 Allergy/AdvReac Type Severity Reaction Status Date / Time Erythromycin Base Allergy Anaphylaxis Verified 10/26/17 13:53 shellfish derived Allergy Anaphylaxis Verified 10/26/17 13:53 All Systems Review: The remainder of the systems were reviewed and are negative Physical Examination Vital Signs, Last 4 Hours Temp Pulse Resp BP Pulse Ox 10/27/17 07:45 16 95 10/27/17 07:28 98.5 F 64 16 157/87 93 Pupils are equal, round and reactive to light and accommodation. He is edentulous. Neck is supple. Trachea in the midline. No thyromegaly or carotid bruits. Lungs are clear to percussion and auscultation. Heart is in a regular rate and rhythm. There is a 2/6 systolic murmur heard throughout the precordium. Abdomen is benign. No tenderness, rebound or guarding. He is status post left nephrectomy and also surgery on his right kidney. Extremities without edema. 1+ pulses. No saphenous vein varicosities or strippings. Cranial nerves, motor and sensory intact. Results 10/27/17 03:03 10/27/17 03:03 Lab Results, Last 24 hours 10/26/17 10/26/17 10/27/17 19:58 19:58 03:03 WBC 9.0 7.1 Hgb 13.5 13.2 Hct 42.0 40.8 Plt Count 241 232 INR 1.1 APTT 38.0 H Sodium Potassium Chloride Carbon Dioxide BUN Creatinine Glucose Calcium Magnesium 10/27/17 10/27/17 03:03 03:03 WBC Hgb Hct Plt Count INR APTT 58.6 H D Sodium 139 Potassium 3.7 Chloride 107 Carbon Dioxide 25 BUN 12 Creatinine 1.45 H Glucose 93 Calcium 8.7 Magnesium 1.9 Consult Discharge Plan - Plan Referrals: NONE,PCP [Primary Care Provider] - Rei Trejo [Family Provider] -
--- NOTE | 2017-10-27 10:32 | Internal Med Progress Note ---
Date of Encounter: 10/27/17 Time of Encounter: 10:28 - Assessment and plan (1) NSTEMI (non-ST elevated myocardial infarction) Current Visit: Yes Status: Acute Assessment and plan: continue heparin, ASA Management per thoracic surgery (2) Solitary kidney Current Visit: Yes Status: Chronic Assessment and plan: chronic, due to nephrectomy from RCC in the past (3) CKD (chronic kidney disease) Current Visit: Yes Status: Suspected Assessment and plan: suspected s/p Left neprectomy in 2013 for RCC Obtain renal USS Avoid nephrotoxins Monitor kidney function, patient received contrast for [facility] Qualifiers: Chronic kidney disease stage: unspecified stage Qualified Code(s): N18.9 - Chronic kidney disease, unspecified (4) DVT prophylaxis Current Visit: Yes Status: Acute Assessment and plan: on heparin drip (5) GERD (gastroesophageal reflux disease) Current Visit: Yes Status: Chronic Assessment and plan: continue home meds Qualifiers: Esophagitis presence: without esophagitis Qualified Code(s): K21.9 - Gastro -esophageal reflux disease without esophagitis (6) HTN (hypertension) Current Visit: Yes Status: Chronic Assessment and plan: continue home meds Qualifiers: Hypertension type: essential hypertension Qualified Code(s): I10 - Essential (primary) hypertension - Subjective Interval history: Seen and evaluated at the bedside reports exertional chest pain He had tripe vessel disease and is awaiting CABG, he has been seen by thoracic surgeon, but has not made up his mind yet He also has hx of renal ceel carcinoma, and has a solitary kidney He is not aware of a diagnosis of CKD, but he probably has CKD - Constitutional Vitals: Temp Pulse Resp BP Pulse Ox 98.5 F 64 16 157/87 95 10/27/17 07:28 10/27/17 07:28 10/27/17 07:45 10/27/17 07:28 10/27/17 07:45 General appearance: Present: A&O X 3, pleasant, no acute distress, answers questions appropriately - Head Head exam: Present: atraumatic, normocephalic - Eye Eye exam: Present: PERRL, conjuntiva pink, sclera anicteric Pupils: Present: PERRL - Neck Neck exam general surgery: Present: supple, trachea midline. Absent: lymphadenopathy - Respiratory Respiratory exam: Present: CTAB. Absent: accessory muscle use, rales, rhonchi, wheezes - Cardiovascular Cardiovascular exam: Present: RRR, +S1, +S2. Absent: diastolic murmur, gallop, rubs, systolic murmur - GI/Abdominal GI/Abdominal exam: Present: normal bowel sounds, soft, no peritoneal signs. Absent: distended, tenderness - Extremities Exam Extremities exam: Present: pedal edema - Back Exam Additional comments: upper back lipoma -patient states its chronic - Neurological Exam Neurological exam: Present: alert, CN II-XII intact, oriented X3, no focal deficits. Absent: pronater drift, facial droop, speech deficit - Skin Skin exam: Present: dry, intact Internal Medicine: Result - Labs CBC & Chem 7: 10/27/17 03:03 10/27/17 03:03 Labs: Short CBC 10/26/17 10/27/17 Range/Units 19:58 03:03 WBC 9.0 7.1 (4.3-11.1) K/mcL Hgb 13.5 13.2 (12.9-16.9) g/dL Hct 42.0 40.8 (37.5-50.1) % Plt Count 241 232 (140-400) K/mcL Neutrophils # 3.8 (1.6-8.9) K/mcL BMP 10/27/17 03:03 Sodium 139 Potassium 3.7 Chloride 107 Carbon Dioxide 25 BUN 12 Creatinine 1.45 H Glucose 93 Calcium 8.7 - ABG Interpretation ABG results: PT/INR, D-dimer PT 11.9 Seconds (9.4-12.1) 10/26/17 19:58 Consult Discharge Plan - Plan [facility]errals: [facility] [Non-Partnered Physician] -
[2017-10-27 10:49] LABS: Bilirubin,Urine Negative (Negative); Blood,Urine Negative (Negative); Clarity,Urine Clear (Clear); Color,Urine Yellow (Yellow); Glucose,Urine (UA) Normal (Normal); Ketones,Urine Negative (Negative); Leukocyte Esterase,Urine Negative (Negative); Nitrite,Urine Negative (Negative); Protein,Urine Negative (Neg-Trace); Specific Gravity,Urine 1.025 (1.010-1.025); Urobilinogen,Urine Normal (Normal)
[2017-10-27] MEDS ORDERED: NICOTINE POLACRILEX 2 MG PO PRN ×2 (11:53→12:30)
--- NOTE | 2017-10-27 12:43 | Event Note ---
Date of Encounter: 10/27/17 Time of Encounter: 12:42 The transthoracic echocardiogram revealed no significant valvular disease. The patient is agreeable for surgery and will be scheduled for tomorrow morning. Operative consent was obtained. He and his family have no further questions.
[2017-10-27] MEDS ORDERED: CeFAZolin Syr 2,000MG/20 ML 2,000 MG/20 ML SYRINGE IVPB ONE (12:46)
[2017-10-27] MEDS ORDERED: Aspirin 81 MG TAB.CHEW PO ONE (12:46)
--- NOTE | 2017-10-27 13:48 | Event Note ---
Date of Encounter: 10/27/17 Time of Encounter: 13:45 - Cardiology Event Note Discussed and reviewed with CT surgery. Echo with no significant valvular issues. Patient now agreeable to CT surgery scheduled tomorrow. Remains on heparin drip. Cardiology will signoff, reconsult as needed, follow-up arranged. All questions answered.
--- NOTE | 2017-10-27 15:23 | Electrocardiograph Report ---
[place] [id number] Test Date: 2017-10-26 Pat Name: Georges Freeman Department: 102 Room: 2NE21 Gender: M Pulmonary Care Nurse: Salome : 1960 Requested By: Mercy Richey Order Number: [id number] Reading MD: Hilaria Sandoval Measurements Intervals [place] Rate: 77 P: 42 IA: 155 QRS: 6 QRSD: 95 T: -5 QT: 389 QTc: 420 Interpretive Statements SINUS RHYTHM NONSPECIFIC ST & T-WAVE ABNORMALITY Electronically Signed On 10-27-2017 15:21:46 EST by Hilaria Sandoval
[2017-10-27] MEDS: Chlorhexidine Rinse 15 ML MOUTHWASH MM SCH (20:14)
[2017-10-27] MEDS: Heparin 25,000 UNIT/500 ML D5W 25,000 UNIT/500 ML BAG IVC SCH (22:48)
[2017-10-28 00:47] LABS: Basophils # 0.1 K/mcL (0.0-0.2); Basophils % 1.2 %; Eosinophils # 0.6 K/mcL (0.0-0.6); Eosinophils % 6.6 %; Hematocrit 41.1 % (37.5-50.1); Hemoglobin 13.5 g/dL (12.9-16.9); Immature Granulocytes % 0.1 % (0-4); Lymphocytes % 31.6 %; Mean Corpuscular HGB Conc 32.8 g/dL (31.6-35.5); Mean Corpuscular Hemoglobin 29.2 pg (28.0-33.3); Mean Corpuscular Volume 88.8 fL (83.0-100.0); Mean Platelet Volume 10.6 fL (9.4-12.4); Monocytes % 10.7 %; Neutrophils # 4.7 K/mcL (1.6-8.9); Platelet Count 241 K/mcL (140-400); Red Blood Count 4.63 M/mcL (4.19-5.50); Red Cell Distribution Width 13.6 % (11.5-14.5); Segmented Neutrophils % 49.8 %
[2017-10-28 01:07] LABS: BUN/Creatinine Ratio 13 (6-26); Blood Urea Nitrogen 18 mg/dL (6-20); Calcium 9.1 mg/dL (8.6-10.3); Carbon Dioxide 22 mEq/L (23-29); Chloride 105 mEq/L (98-107); Glucose 93 mg/dL (70-105); Osmolality,Calculated 284 (280-300); Potassium 4.3 mEq/L (3.5-5.1); Sodium 136 mEq/L (136-145); eGFR For African Americans > 60 (> 60); eGFR For Non-African Americans 54 (> 60)
[2017-10-28] MEDS: Chlorhexidine Rinse 15 ML MOUTHWASH MM SCH ×2 (05:34→20:19)
[2017-10-28] MEDS ORDERED: Aspirin 81 MG TAB.CHEW PO ONE (06:00)
[2017-10-28] MEDS ORDERED: CeFAZolin Syr 2,000MG/20 ML 2,000 MG/20 ML SYRINGE IVPB ONE (06:00)
[2017-10-28] MEDS ORDERED: *HR* Rocuronium Bromide 50 MG/5 ML VIAL ONE ×6 (06:40→10:26)
[2017-10-28] MEDS ORDERED: *HR* Propofol 200 MG/20 ML VIAL IVP ONE (06:40)
[2017-10-28] MEDS ORDERED: Verapamil 5 MG/2 ML VIAL ONE (06:42)
[2017-10-28] MEDS ORDERED: *HR* Phenylephrine 10 MG/ML VIAL ONE (06:42)
[2017-10-28] MEDS ORDERED: Tranexamic Acid 1,000 MG/10 ML VIAL ONE (06:43)
[2017-10-28] MEDS ORDERED: *HR* EPINEPHrine 1 MG/ML AMPUL ONE (06:43)
[2017-10-28] MEDS ORDERED: Lidocaine 2% Syringe 100 MG/5 ML ONE (06:43)
[2017-10-28] MEDS ORDERED: *HR* Magnesium Sulfate 1 GM/2 ML VIAL ONE (06:43)
[2017-10-28] MEDS ORDERED: *HR* FentaNYL (PF) 1,000 MCG/20 ML VIAL ONE (06:52)
[2017-10-28] MEDS ORDERED: *HR* Midazolam HCl 5 MG/5 ML VIAL IVP ONE (06:53)
[2017-10-28] MEDS ORDERED: *HR* Norepinephrine 4 MG/4 ML VIAL IVC ONE (07:02)
[2017-10-28] MEDS ORDERED: Nitroglycerin 25 MG/250 ML INFUS..BTL IVC ONE ×2 (07:02→10:28)
--- NOTE | 2017-10-28 07:10 | Anesthesia Evaluation PreOp ---
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 EFFICIENCY SUPERVISOR History: Denies Any Significant HX Other Medical History: Renal (hx nephrectomy) Anesthesia History: No Prior Anesthetic Complications Alcohol Use: none Drug use: marijuana Medications and Allergies Albuterol Sulfate [Albuterol Inhaler] 2 puff IH QID PRN 10/26/17 [History] Aspirin 81 mg PO DAILY 10/26/17 [History] Budesonide/Formoterol 80/4.5 [Symbicort 80/4.5] 1 puff IH BID 10/26/17 [History ] Carvedilol 12.5 mg PO BID 10/26/17 [History] NIFEdipine [Nifedipine ER] 60 mg PO DAILY 10/26/17 [History] Nicotine Polacrilex [Nicotine Lozenge] 2 mg BC QID PRN 10/26/17 [History] Omeprazole [PriLOSEC] 20 mg PO DAILY 10/26/17 [History] Tiotropium [Spiriva] 18 mcg IH 0700 10/26/17 [History] hydrOXYzine HCl [Hydroxyzine HCl] 50 mg PO HS PRN 10/26/17 [History] 3 Allergy/AdvReac Type Severity Reaction Status Date / Time Erythromycin Base Allergy Anaphylaxis Verified 10/26/17 13:53 shellfish derived Allergy Anaphylaxis Verified 10/26/17 13:53 - Meds/Allergy Pre-op Review Medications Reviewed: Yes Allergies Reviewed: Yes Beta Blockers on Current Med List: Yes If Beta Blockers taken, Date/Time (Last Dose taken): 10/28/2017 0601 Anesthesia Results - Labs 10/28/17 00:33 10/28/17 00:33 - Imaging EKG: report reviewed Chest x-ray: report reviewed Additional studies: Echo 10/26/17 Impressions: LVEF 55-60%. Normal LV chamber size and function. Mild concentric left ventricular hypertrophy. Mild left ventricular diastolic dysfunction. Normal right ventricular structure and function. No obvious significant valvular dysfunction. No evidence of pulmonary hypertension identified. RVSP not well obtained due to poor TR jet LHC severe three-vessel CAD: 80% LAD, 70% circumflex and 85% right coronary artery lesion. Anesthesia Exam Vital Signs/O2 Sat/Glucose, Most Current Temp Pulse Resp BP Pulse Ox 10/28/17 05:03 98.3 F 66 15 167/94 97 NPO (# of Hours): 8 - HEENT Mallampati: II Teeth: Edentulous Oral Opening: Greater than 3 - CELL EFFICIENCY SUPERVISOR CELL EFFICIENCY SUPERVISOR Motor: Normal RUE, Normal LUE, Normal RLE, Normal LLE, Normal Face CELL EFFICIENCY SUPERVISOR Sensory: Normal: RUE, LUE, RLE, LLE, Face - Cardiac Rhythm: Regular Murmur: None JVD: Yes Carotid Bruit: Yes - Pulmonary Breath Sounds: bilateral Clear, bilateral Rales, bilateral Rhonchi Respiratory Effort: Symmetrical Anesthesia Assess/Plan ASA Score: 4 Modified Alexis Scale for Level of Consciousness: Cooperative, oriented, and tranquil Anesthetic Plan: General Autologous Blood: Yes Monitoring Plan: Standard Monitors, A-Line, CVC, PAC, EDITH Recovery Plan: ICU
[2017-10-28] MEDS ORDERED: Norepinephrine 4 MG in D5% in Water 250 ML IVC PRN (07:45)
[2017-10-28] MEDS ORDERED: Dextrose 50 % in Water (Vial) 30 ML, Sodium Bicarbonate 20 MEQ, Lidocaine 1% 5 ML, Insu... TH SCH (07:45)
[2017-10-28] MEDS ORDERED: Dextrose 50 % in Water (Vial) 30 ML, Sodium Bicarbonate 20 MEQ, Potassium Chloride 15 M... TH ONE (07:45)
[2017-10-28] MEDS ORDERED: Insulin Human Regular 100 UNIT in 0.9 % Sodium Chloride 100 ML IV PRN (07:45)
[2017-10-28 08:02] LABS: ABG Base Excess -2 mEq/L (-2 to 3); ABG Chloride 107 mEq/L (98-107); ABG Glucose 103 mg/dL (60-95); ABG HCO3 23 mEq/L (21-27); ABG Ionized Calcium 1.18 mmol/L (1.15-1.35); ABG Oxygen Saturation 100 % (95-98); ABG PCO2 40 mmHg (35-45); ABG PH 7.38 pH Units (7.32-7.45); ABG PO2 173 mmHg (85-104); ABG TCO2 25 mEq/L (20-26)
[2017-10-28] MEDS: Tiotropium 18 MCG inhalation IH SCH (08:13)
[2017-10-28] MEDS: Budesonide/Formoterol 80/4.5 MDI IH SCH ×2 (08:15→20:14)
[2017-10-28 09:19] LABS: ABG Base Excess -3 mEq/L (-2 to 3); ABG Chloride 107 mEq/L (98-107); ABG Glucose 114 mg/dL (60-95); ABG HCO3 23 mEq/L (21-27); ABG Ionized Calcium 1.14 mmol/L (1.15-1.35); ABG Oxygen Saturation 99 % (95-98); ABG PCO2 45 mmHg (35-45); ABG PH 7.32 pH Units (7.32-7.45); ABG PO2 151 mmHg (85-104); ABG TCO2 25 mEq/L (20-26)
[2017-10-28] MEDS ORDERED: Protamine Sulfate 250 MG/25 ML VIAL IVP ONE (09:23)
--- NOTE | 2017-10-28 09:47 | Anesthesia Procedures ---
Date of Encounter: 10/28/17 Time of Encounter: 08:00 Procedures: Anesthesia - Arterial Line Consent obtained: written consent Time out performed: Yes Sedation: Versed (mg): 4 Sedation: Fentanyl (mcg): 50 Local Anesthetic: Lidocaine 1% Amount of Anesthetic used (mls): 0.2 Size (Gauge): 20 Length (inches): 1 3/4 Technique Used: sterile prep Post-Procedure: line taped into place, dry sterile dressing placed Patient tolerated procedure: well Complications: none Site: Radial L - Central Line Placement Right IJ Consent obtained: written consent Time out performed: Yes Patient placed on monitor/pulse ox: Yes prep: mask, gown, gloves Central line prep: Chlorhexidine scrub Ultrasound used for placement: Yes Technique: Seldinger Lumen Inserted: single, Introducer Post procedure: sutured in place Post procedure x-ray: tip of catheter in good position Patient tolerated procedure: no complications Complications: none Comments: PAC inserted using pressure waveform analysis. Secured at 45 cm
[2017-10-28 10:00] LABS: ABG Base Excess 2 mEq/L (-2 to 3); ABG Chloride 101 mEq/L (98-107); ABG Glucose 164 mg/dL (60-95); ABG HCO3 27 mEq/L (21-27); ABG Ionized Calcium 0.91 mmol/L (1.15-1.35); ABG Oxygen Saturation 100 % (95-98); ABG PCO2 41 mmHg (35-45); ABG PH 7.43 pH Units (7.32-7.45); ABG PO2 554 mmHg (85-104); ABG TCO2 28 mEq/L (20-26)
[2017-10-28 10:23] LABS: ABG Base Excess 3 mEq/L (-2 to 3); ABG Chloride 103 mEq/L (98-107); ABG Glucose 134 mg/dL (60-95); ABG HCO3 27 mEq/L (21-27); ABG Ionized Calcium 0.94 mmol/L (1.15-1.35); ABG Oxygen Saturation 100 % (95-98); ABG PCO2 39 mmHg (35-45); ABG PH 7.45 pH Units (7.32-7.45); ABG PO2 494 mmHg (85-104); ABG TCO2 28 mEq/L (20-26)
[2017-10-28] MEDS ORDERED: Albumin Human 5% 50.0 GM/1,000 ML VIAL ONE (10:28)
[2017-10-28 10:42] LABS: ABG Base Excess 2 mEq/L (-2 to 3); ABG Chloride 101 mEq/L (98-107); ABG Glucose 103 mg/dL (60-95); ABG HCO3 27 mEq/L (21-27); ABG Ionized Calcium 0.96 mmol/L (1.15-1.35); ABG Oxygen Saturation 100 % (95-98); ABG PCO2 41 mmHg (35-45); ABG PH 7.42 pH Units (7.32-7.45); ABG PO2 563 mmHg (85-104); ABG TCO2 28 mEq/L (20-26)
[2017-10-28] MEDS ORDERED: Dexamethasone 4 MG/ML VIAL ONE (11:01)
[2017-10-28] MEDS ORDERED: Famotidine 20 MG/2 ML VIAL ONE (11:01)
[2017-10-28] MEDS ORDERED: *HR* FentaNYL (PF) 250 MCG/5 ML VIAL ONE (11:09)
--- NOTE | 2017-10-28 11:11 | Event Note ---
Date of Encounter: 10/28/17 Time of Encounter: 08:50 Patient already went to surgery-medicine will sign off to cardiothoracic surgery
[2017-10-28 11:45] LABS: ABG Base Excess 0 mEq/L (-2 to 3); ABG Chloride 105 mEq/L (98-107); ABG Glucose 41 mg/dL (60-95); ABG HCO3 25 mEq/L (21-27); ABG Ionized Calcium 1.27 mmol/L (1.15-1.35); ABG Oxygen Saturation 91 % (95-98); ABG PCO2 41 mmHg (35-45); ABG PH 7.39 pH Units (7.32-7.45); ABG PO2 62 mmHg (85-104); ABG TCO2 26 mEq/L (20-26)
[2017-10-28] MEDS ORDERED: *HR* Dextrose 50 % in Water (Syg) 50 ML SYRINGE IVP PRN (11:57)
[2017-10-28] MEDS ORDERED: *HR* Promethazine 25 MG/ML VIAL IVP PRN (11:57)
[2017-10-28] MEDS ORDERED: Insulin Regular, Human 100 UNIT/ML IV PRN (11:57)
[2017-10-28] MEDS ORDERED: Potassium Chloride 40 MEQ/200 ML BAG IVPB PRN (11:57)
[2017-10-28] MEDS ORDERED: Norepinephrine 4 MG in D5% in Water 250 ML IVC SCH (12:00)
[2017-10-28] MEDS ORDERED: Insulin Human Regular 100 UNIT in 0.9 % Sodium Chloride 100 ML IVC SCH (12:00)
[2017-10-28] MEDS ORDERED: *HR* Dextrose 50 % in Water (Syg) 50 ML SYRINGE ONE (12:20)
[2017-10-28 12:36] LABS: Basophils % 0.2 %; Eosinophils # 0.4 K/mcL (0.0-0.6); Eosinophils % 1.8 %; Hematocrit 31.7 % (37.5-50.1); Immature Granulocytes % 0.5 % (0-4); Lymphocytes # 1.9 K/mcL (0.6-4.6); Lymphocytes % 9.4 %; Mean Corpuscular HGB Conc 33.1 g/dL (31.6-35.5); Mean Corpuscular Hemoglobin 29.6 pg (28.0-33.3); Mean Corpuscular Volume 89.3 fL (83.0-100.0); Mean Platelet Volume 10.5 fL (9.4-12.4); Monocytes # 1.5 K/mcL (0.0-1.3); Monocytes % 7.3 %; Neutrophils # 16.5 K/mcL (1.6-8.9); Platelet Count 110 K/mcL (140-400); Red Blood Count 3.55 M/mcL (4.19-5.50); Red Cell Distribution Width 13.2 % (11.5-14.5); Segmented Neutrophils % 80.8 %
--- NOTE | 2017-10-28 12:37 | Operative Note ---
Date of procedure: 10/28/17 Was there an nurse practitioner physicians assistant present: Yes Hvac Field Service Technician: Roscoe Smith Estimated blood loss (cc): 500 Specimen: none Procedure in Detail: Preoperative diagnosis. Coronary artery disease. Postoperative diagnosis. Same. Procedures. Coronary artery bypass grafting 3 with the left internal mammary artery to the LAD, and saphenous vein grafts to the main right coronary artery and obtuse marginal branch #1 of the circumflex. Surgeon. Dr. Bryon Rayo. Asst. Roscoe Smith. The patient is a 57-year-old gentleman does have a history of smoking and presented with a myocardial infarction with positive enzymes. Cardiac catheterization revealed severe triple vessel disease and he was referred for surgery. He was brought to the operating room where he was prepped and draped in standard fashion. The right greater saphenous vein was harvested from the right groin to the right mid calf using the scope and 2 small incisions. These incisions were later closed with a deep layer of 2-0 Vicryl and a 3-0 Vicryl subcuticular stitch. Standard median sternotomy was performed. The left internal mammary artery retractor was inserted in the left internal mammary artery was harvested in standard fashion using the Bovie electrocoagulation. Following this, the mammary retractor was removed in the standard sternal makeup sales consultant was inserted. Pericardium was opened in the midline and suspended with 2-0 silk stay sutures. Double purse string of 20 Surgilon was placed in the aorta for the aortic cannulation site. Pursestring of 20 Surgilon was placed in the right atrial appendage for venous uptake. The patient was heparinized. The aorta was cannulated without difficulty. 2 stage venous uptake cannula was inserted through the right atrial appendage. The patient was placed on cardiopulmonary bypass and cooled to 34.7 degrees. At this point, a pursestring of 3-0 silk was placed in the aorta for the cardioplegia needle. This was also used as an active and passive aortic vent. The aorta was crossclamped and a liter of cardioplegia was given. Topical cooling with iced saline slush was also done. Attention was first turned to the right coronary artery. The posterior descending branch was too diffusely diseased for grafting. We opened the distal right coronary artery with a Rampart blade and the Gastelum scissors. This had a lumen of 1-1/2 mm with moderate diffuse disease. A standard end-to-side anastomosis was constructed using the saphenous vein and a 7-0 Prolene. When this is completed, additional antegrade cardioplegia was given. Attention was turned to the circumflex. Obtuse marginal branch #1 was dissected free with the Rampart blade and opened with a Rampart blade and the Gastelum scissors. This had a lumen of 1/2 mm with moderate diffuse disease throughout. A standard end-to-side anastomosis was constructed using the saphenous vein and a 7-0 Prolene. When this is completed , the patient received a last dose of antegrade cardioplegia. Attention was turned to the LAD. This was dissected free with the Rampart blade and opened with a Rampart blade and the Gastelum scissors. This had a lumen of 1-1/2 mm with moderate diffuse disease. Mammary pedicle was harvested. Tonsil clamp was placed distally and was divided with the Metzenbaum scissors. Distal end was tied off with a 2-0 silk suture. Proximal end was trimmed and brought into the wound. A standard end-to-side anastomosis was constructed using the mammary artery and a 7-0 Prolene. When this is completed, the previously placed bulldog clamp was removed and hemostasis was good. Pedicle sexed surface heart using 2 interrupted 4-0 silk sutures. Cross-clamp was removed and rewarming was begun. Total cross-clamp time was 50 minutes. Side biting clamp was placed on the aorta and the cardioplegia needle was removed. 2 holes were made in the aorta. The lower hole was made with a 4.5 mm aortic punch in the upper hole for the circumflex was made with a 2.2 mm aortic punch. The 2 proximal anastomoses were done in standard fashion. The right anastomosis was inferior and was completed with a 5-0 Prolene in end-to-side fashion. The circumflex anastomosis was superior and was completed with a 6-0 Prolene in end-to-side fashion. Side-biting clamp was removed. Grafts were de-aired using #25-gauge needle. The previously placed bulldog clamps were removed. Distal anastomoses were inspected and found to be hemostatic. Proximal anastomoses were marked with a marker from [employer]. A pair of atrial and ventricular pacing wires were left. A total of 4 chest tubes were left. A 32 right angle chest tube to the left pleural space. A 32 right angle chest tube to the pericardial well. A 40 mediastinal chest tube. A 32 right angle chest tube to the right pleural space. I did place FloSeal around the proximal and distal anastomoses. Patient is weaned from bypass and decannulated. Protamine was given. Hemostasis was good and the hemodynamics were good. Pericardium was loosely closed with interrupted 2-0 silk sutures. The sternum was closed with #7 sternal wires in simple and [id number] fashion. We did place platelet rich plasma around the sternum and platelet poor plasma above the sternum and in the leg incisions. Fascia was run with #1 Vicryl. Subcutaneous case tissues with a 2-0 Vicryl. Skin was closed with a 3-0 Vicryl subcuticular stitch. The patient tolerated procedure well and was returned intensive care unit in satisfactory and stable condition. Total bypass time 99 minutes. Total cross-clamp time 50 minutes. He been cooled to 34.7 degrees.
[2017-10-28 12:39] LABS: Hemoglobin 10.5 g/dL (12.9-16.9)
[2017-10-28 12:41] LABS: INR 1.2; Prothrombin Time 13.4 Seconds (9.4-12.1)
[2017-10-28 12:44] LABS: Activated Partial Thrombo Time 37.3 Seconds (26.0-36.0)
[2017-10-28 12:49] LABS: ABG Base Excess 0 mEq/L (-2 to 3); ABG HCO3 26 mEq/L (21-27); ABG Oxygen Saturation 100 % (95-98); ABG PCO2 46 mmHg (35-45); ABG PH 7.36 pH Units (7.32-7.45); ABG PO2 191 mmHg (85-104); ABG TCO2 27 mEq/L (20-26)
[2017-10-28] MEDS: Nitroglycerin 25 MG/250 ML INFUS..BTL IVC SCH ×2 (12:55→21:26)
[2017-10-28] MEDS: niCARdipine 40 MG/200 ML MLS IVC SCH ×2 (12:55→22:09)
--- NOTE | 2017-10-28 12:58 | Electrocardiograph Report ---
[address] [place], [place] [address] Test Date: 2017-10-28 Pat Name: Georges Freeman Department: 109 Room: [facility] Gender: M Family Coach: : 1960 Requested By: Bryon Rayo Order Number: [id number] Reading MD: Hilaria Sandoval Measurements Intervals [place] Rate: 80 P: 132 HI: 187 QRS: 14 QRSD: 87 T: -41 QT: 382 QTc: 419 Interpretive Statements ELECTRONIC ATRIAL PACEMAKER MODERATE T-WAVE ABNORMALITY, CONSIDER LATERAL ISCHEMIA MODERATE T-WAVE ABNORMALITY, CONSIDER INFERIOR ISCHEMIA Electronically Signed On 10-28-2017 12:57:04 EST by Hilaria Sandoval
[2017-10-28] MEDS ORDERED: *HR* FentaNYL (PF) 100 MCG/2 ML VIAL ONE (12:59)
[2017-10-28] MEDS ORDERED: niCARdipine 40 MG/200 ML MLS IVC ONE (13:02)
[2017-10-28 13:04] LABS: BUN/Creatinine Ratio 11 (6-26); Blood Urea Nitrogen 14 mg/dL (6-20); Calcium 7.9 mg/dL (8.6-10.3); Carbon Dioxide 26 mEq/L (23-29); Chloride 108 mEq/L (98-107); Glucose 53 mg/dL (70-105); Magnesium 3.2 mg/dL (1.6-2.6); Osmolality,Calculated 284 (280-300); Potassium 4.2 mEq/L (3.5-5.1); Sodium 138 mEq/L (136-145); eGFR For African Americans > 60 (> 60); eGFR For Non-African Americans 60 (> 60)
--- NOTE | 2017-10-28 13:07 | Anesthesia Evaluation Post Op ---
Date of Encounter: 10/28/17 Time of Encounter: 13:05 - Vital Signs Vital Signs: Vital Signs/O2 Sat, Most Current Temp Pulse Resp BP Pulse Ox 98.3 F 66 12 167/94 100 10/28/17 05:03 10/28/17 05:03 10/28/17 12:10 10/28/17 05:03 10/28/17 12:10 - Lungs Lungs: Clear Ascult./Percussion - Airway Airway: Intubated - Cardiovascular Regular Rate - Mental Status Mental Status: Sedated - Nausea Vomiting Nausea Vomiting: Not Present - Hydration Hydration: NPO - Discharge Attestation: patient in ICU
[2017-10-28] MEDS: Heparin 15,000 UNIT in 0.9 % Sodium Chloride 500 ML IV SCH (13:12)
[2017-10-28] MEDS: Aspirin 81 MG TAB.CHEW PO SCH (13:13)
[2017-10-28] MEDS: NIFEdipine XL (24 HR) 60 MG TAB.ER.24 PO SCH (13:13)
[2017-10-28] MEDS: *HR* FentaNYL (PF) 100 MCG/2 ML VIAL IVP PRN ×3 (13:16→19:02)
[2017-10-28] MEDS: 0.9 % Sodium Chloride 1,000 ML IVC SCH (13:26)
[2017-10-28] MEDS ORDERED: *HR* Phenylephrine 10 MG/ML VIAL IVC ONE (13:48)
[2017-10-28] MEDS ORDERED: Mannitol 25% vial 12.5 GM/50 ML VIAL IVP ONE (13:48)
[2017-10-28] MEDS ORDERED: *HR* Heparin 10,000 UNIT/10 ML VIAL IV ONE (13:48)
[2017-10-28] MEDS ORDERED: Albumin Human 25% 25 GM/100 ML IV.SOLN IV ONE (13:48)
[2017-10-28] MEDS ORDERED: *HR* Magnesium Sulfate 2 GM/50 ML PIGGYBACK IVPB ONE (13:48)
[2017-10-28] MEDS ORDERED: Lidocaine 2% Syringe 100 MG/5 ML IV ONE (13:48)
[2017-10-28] MEDS: CeFAZolin Premix DUPLEX 2,000 MG/50 ML BAG IVPB SCH (16:09)
[2017-10-28 16:27] LABS: ABG Base Excess -2 mEq/L (-2 to 3); ABG HCO3 23 mEq/L (21-27); ABG Oxygen Saturation 91 % (95-98); ABG PCO2 39 mmHg (35-45); ABG PH 7.38 pH Units (7.32-7.45); ABG PO2 63 mmHg (85-104); ABG TCO2 25 mEq/L (20-26); Blood Gas Modality ASSIST CONTROL; Blood Gas PEEP 5 cm H2O; Blood Gas Pressure Support 5 cm H2O
[2017-10-28] MEDS: *HR* OxyCODONE/APAP 5/325 TABLET PO PRN (16:41)
[2017-10-28] MEDS: *HR* HYDROcodone/Acet 5/325 mg TABLET PO PRN (20:18)
[2017-10-28] MEDS: Ondansetron 4 MG/2 ML VIAL IVP PRN (21:26)
[2017-10-29] MEDS: CeFAZolin Premix DUPLEX 2,000 MG/50 ML BAG IVPB SCH (00:03)
[2017-10-29] MEDS: *HR* OxyCODONE/APAP 5/325 TABLET PO PRN ×3 (00:03→21:43)
[2017-10-29] MEDS: 0.9 % Sodium Chloride 1,000 ML IVC SCH (02:46)
[2017-10-29] MEDS: *HR* HYDROcodone/Acet 5/325 mg TABLET PO PRN ×3 (02:54→17:19)
[2017-10-29 03:44] LABS: Basophils % 0.1 %; Hematocrit 31.7 % (37.5-50.1); Hemoglobin 10.2 g/dL (12.9-16.9); Immature Granulocytes % 0.5 % (0-4); Lymphocytes # 1.2 K/mcL (0.6-4.6); Lymphocytes % 4.9 %; Mean Corpuscular HGB Conc 32.2 g/dL (31.6-35.5); Mean Corpuscular Volume 90.1 fL (83.0-100.0); Monocytes # 1.8 K/mcL (0.0-1.3); Monocytes % 7.5 %; Neutrophils # 20.5 K/mcL (1.6-8.9); Platelet Count 133 K/mcL (140-400); Red Blood Count 3.52 M/mcL (4.19-5.50); Red Cell Distribution Width 13.7 % (11.5-14.5)
[2017-10-29 03:51] LABS: INR 1.1; Prothrombin Time 12.1 Seconds (9.4-12.1)
[2017-10-29 04:02] LABS: BUN/Creatinine Ratio 13 (6-26); Blood Urea Nitrogen 18 mg/dL (6-20); Calcium 8.2 mg/dL (8.6-10.3); Carbon Dioxide 21 mEq/L (23-29); Chloride 107 mEq/L (98-107); Glucose 137 mg/dL (70-105); Magnesium 2.2 mg/dL (1.6-2.6); Osmolality,Calculated 286 (280-300); Potassium 5.1 mEq/L (3.5-5.1); Sodium 136 mEq/L (136-145); eGFR For African Americans > 60 (> 60); eGFR For Non-African Americans 52 (> 60)
[2017-10-29] MEDS: *HR* FentaNYL (PF) 100 MCG/2 ML VIAL IVP PRN (05:01)
[2017-10-29] MEDS: Nitroglycerin 25 MG/250 ML INFUS..BTL IVC SCH (06:27)
[2017-10-29] MEDS: niCARdipine 40 MG/200 ML MLS IVC SCH ×3 (06:40→21:18)
[2017-10-29] MEDS: Budesonide/Formoterol 80/4.5 MDI IH SCH ×2 (07:33→20:11)
[2017-10-29] MEDS: Tiotropium 18 MCG inhalation IH SCH (07:35)
[2017-10-29 08:38] LABS: ABG Base Excess -3 mEq/L (-2 to 3); ABG HCO3 22 mEq/L (21-27); ABG Oxygen Saturation 85 % (95-98); ABG PCO2 37 mmHg (35-45); ABG PH 7.39 pH Units (7.32-7.45); ABG PO2 50 mmHg (85-104); ABG TCO2 23 mEq/L (20-26)
--- NOTE | 2017-10-29 08:52 | Cardiothoracic Progress Note ---
Date of Encounter: 10/29/17 Time of Encounter: 08:50 - Assessment and plan (1) NSTEMI (non-ST elevated myocardial infarction) Current Visit: Yes Status: Acute We will place the patient on BiPAP. I will consult pulmonary for respiratory treatments. We will discontinue his IV fluids and [place]-Krys catheter. We will give him 1 dose of Lasix 20 mg IV. We will leave his arterial line and Momin catheter for now. We will wean his nitroglycerin and Cardene drips to keep the systolic less than 140. We will start by mouth beta quintin. We will leave the chest tubes for now and hopefully, discontinue them tomorrow. We will leave the patient in the ICU. - Subjective Interval history: The patient complains of shortness of breath and difficulty getting a deep breath. He has been on BiPAP at home before and states that this sometimes helps. He also expresses some paranoid ideas and complains that the staff is talking behind his back, etc. Vital Signs, Last 4 Hours Pulse Resp BP Pulse Ox 10/29/17 07:38 20 90 10/29/17 06:00 96 17 145/68 87 10/29/17 05:00 82 15 144/70 93 Oxgyen Flow Rate Oxygen Flow Rate (LPM) 15 Clinical Data, last 8 Hours Output, Chest Tube Drainage 10 Amount [#1] Output, Chest Tube Drainage 10 Amount [#1] Output, Chest Tube Drainage 0 Amount [#2] Output, Chest Tube Drainage 0 Amount [#2] Output, Chest Tube Drainage 10 Amount [#3] Output, Chest Tube Drainage 10 Amount [#3] Output, Chest Tube Drainage 10 Amount [#4] Output, Chest Tube Drainage 10 Amount [#4] Weight 10/27/17 10/28/17 10/29/17 23:59 23:59 23:59 Weight 95.4 kg 92.5 kg Lungs are clear to percussion and auscultation. Heart is in a normal sinus rhythm. His incision is healing well without signs of infection. Chest x-ray looks relatively clear. Chest tube drainage is 200 mL total over the last 8 hours. There is no air leak. - Labs 10/29/17 03:30 10/29/17 03:30 Lab Results, Last 24 hours 10/28/17 10/28/17 10/28/17 12:20 12:20 12:20 WBC 20.4 H D Hgb 10.5 L D Hct 31.7 L Plt Count 110 L D INR 1.2 APTT 37.3 H Sodium 138 Potassium 4.2 Chloride 108 H Carbon Dioxide 26 BUN 14 Creatinine 1.25 Glucose 53 L Calcium 7.9 L Magnesium 3.2 H 10/29/1718 10/29/17 03:30 03:30 03:30 WBC 23.5 H Hgb 10.2 L Hct 31.7 L Plt Count 133 L INR 1.1 APTT 31.0 Sodium 136 Potassium 5.1 Chloride 107 Carbon Dioxide 21 L BUN 18 Creatinine 1.42 H Glucose 137 H Calcium 8.2 L Magnesium 2.2 - VTE Documentation of Mechanical Device: Graduated compression elastic hosiery Consult Discharge Plan - Plan Referrals: [facility] [Non-Partnered Physician] -
[2017-10-29] MEDS ORDERED: Furosemide 20 MG/2 ML VIAL IVP ONE (09:02)
[2017-10-29] MEDS: NIFEdipine XL (24 HR) 60 MG TAB.ER.24 PO SCH (09:21)
[2017-10-29] MEDS: Chlorhexidine Rinse 15 ML MOUTHWASH MM SCH ×2 (09:21→21:31)
[2017-10-29] MEDS: Aspirin 81 MG TAB.CHEW PO SCH (09:21)
[2017-10-29] MEDS ORDERED: Ipratropium/Albuterol Neb 3 ML ONE (11:36)
[2017-10-29] MEDS ORDERED: Ipratropium/Albuterol Neb 3 ML IH ONE (12:00)
--- NOTE | 2017-10-29 13:33 | Pulmonology Consult Note ---
Date of Encounter: 10/29/17 Time of Encounter: 09:30 Assessment and Plan (1) Acute respiratory failure with hypoxia Current Visit: Yes Status: Acute Patient with Acute respiratory failure with hypoxia multifactorial some pulmonary vascular congestion and bibasilar atelectasis . Will put him on BIPAP 18/06 , ABG showed some metabolic acidosis with compensation , hypoxemia was confirmed with ABG. To continue NIV and i encouraged him to do the incentive spirometry , encouraged to sit him as much he can. (2) COPD (chronic obstructive pulmonary disease) Current Visit: Yes Status: Acute Patient has COPD in his history will continue Duoneb nebuliazer , Symbicort Qualifiers: COPD type: chronic bronchitis Qualified Code(s): J41.0 - Simple chronic bronchitis (3) NSTEMI (non-ST elevated myocardial infarction) Current Visit: Yes Status: Chronic Patiet presented with NSTEMI Now his POD 1 after CABG Surgery . Thanks for the Consultation . Will follow History of Present Illness Consult date: 10/29/17 Requesting physician: Bryon Rayo Reason for consult: chest pain Chief complaint: Chest Pain History of present illness: 57 year old male with past medical history significant for chronic smoking , COPD on inhalers ,? CCII on CPAP , HTN , CAD comes with NSTEMI found to have triple vessel disease had CABG yesterday procedure went well patient was extubated yesterday evening , patient says he has some sternotomy site pain otherwise he feels little bit short of breadth has some orthopnea , otherwise patient looks comfortable in the chair talking over the phone patient is on higher O2 requirements , denies any palpitations ,denies any head ache or any other focal neurological deficit Past Med Surg Social Fam HX - Past Medical History Medical history: cancer, COPD, hypertension Psychiatric history: anxiety, depression - Social History Smoking Status: Current every day smoker Smokeless Tobacco Status: No Alcohol use: none Drug use: marijuana Medications and Allergies Albuterol Sulfate [Albuterol Inhaler] 2 puff IH QID PRN 10/26/17 [History] Aspirin 81 mg PO DAILY 10/26/17 [History] Budesonide/Formoterol 80/4.5 [Symbicort 80/4.5] 1 puff IH BID 10/26/17 [History ] Carvedilol 12.5 mg PO BID 10/26/17 [History] NIFEdipine [Nifedipine ER] 60 mg PO DAILY 10/26/17 [History] Nicotine Polacrilex [Nicotine Lozenge] 2 mg BC QID PRN 10/26/17 [History] Omeprazole [PriLOSEC] 20 mg PO DAILY 10/26/17 [History] Tiotropium [Spiriva] 18 mcg IH 0700 10/26/17 [History] hydrOXYzine HCl [Hydroxyzine HCl] 50 mg PO HS PRN 10/26/17 [History] 3 Allergy/AdvReac Type Severity Reaction Status Date / Time Erythromycin Base Allergy Anaphylaxis Verified 10/26/17 13:53 shellfish derived Allergy Anaphylaxis Verified 10/26/17 13:53 All Systems: The remainder of the systems were reviewed and are negative Physical Examination Vital Signs: Vital Signs, Last 4 Hours Temp Pulse Resp BP Pulse Ox 10/29/17 11:00 98.9 F 67 30 140/78 91 10/29/17 10:00 83 24 139/76 100 Auscultation: bilateral: diminished breath sounds (bilateral basilar air entry diminshed ) Results - Laboratory Findings CBC and BMP: 10/29/17 03:30 10/29/17 03:30 ABG ABG pH 7.39 pH Units (7.32-7.45) 10/29/17 08:33 ABG pCO2 37 mmHg (35-45) 10/29/17 08:33 ABG pO2 50 mmHg (85-104) L* 10/29/17 08:33 ABG O2 Saturation 85 % (95-98) L 10/29/17 08:33 PT/INR, D-dimer PT 12.1 Seconds (9.4-12.1) 10/29/17 03:30 Abnormal lab findings: Abnormal lab results WBC 23.5 K/mcL (4.3-11.1) H 10/29/17 03:30 RBC 3.52 M/mcL (4.19-5.50) L 10/29/17 03:30 Hgb 10.2 g/dL (12.9-16.9) L 10/29/17 03:30 Hct 31.7 % (37.5-50.1) L 10/29/17 03:30 Plt Count 133 K/mcL (140-400) L 10/29/17 03:30 Neutrophils # 20.5 K/mcL (1.6-8.9) H 10/29/17 03:30 Monocytes # 1.8 K/mcL (0.0-1.3) H 10/29/17 03:30 ABG pO2 50 mmHg (85-104) L* 10/29/17 08:33 ABG O2 Saturation 85 % (95-98) L 10/29/17 08:33 ABG Base Excess -3 mEq/L (-2 to 3) L 10/29/17 08:33 ABG Hematocrit 25.0 % (37.5-50.1) L 10/28/17 11:31 Glucose 41 mg/dL (60-95) L 10/28/17 11:31 Carbon Dioxide 21 mEq/L (23-29) L 10/29/17 03:30 Creatinine 1.42 mg/dL (0.70-1.30) H 10/29/17 03:30 Est GFR (Non-Af Amer) 52 (> 60) L 10/29/17 03:30 Glucose 137 mg/dL (70-105) H 10/29/17 03:30 POC Glucose 127 (58-89) H 10/29/17 11:21 Calcium 8.2 mg/dL (8.6-10.3) L 10/29/17 03:30 Troponin I 0.37 ng/mL (< 0.04) H* 10/26/17 14:28 B-Natriuretic Peptide 145 pg/mL (Less than 100) H 10/26/17 14:28 Cholesterol 214 mg/dL (< 200) H 10/27/17 03:03 LDL Cholesterol, Calc 149 mg/dL (0-99) H 10/27/17 03:03 HDL Cholesterol 37 mg/dL (40-59) L 10/27/17 03:03 Cholesterol/HDL Ratio 5.8 (0-4.9) H 10/27/17 03:03 - Clinical Findings Intake & Output: Intake & Output 10/28/17 10/29/17 10/29/17 23:59 07:59 15:59 Intake Total 475 / 475 575 / 575 Output Total 1994 880 / 880 0 / 0 Balance -1520 / -1520 -305 / -305 0 / 0 Consult Discharge Plan - Plan Referrals: [facility] [Non-Partnered Physician] -
[2017-10-29] MEDS ORDERED: *HR* Dextrose 50 % in Water (Syg) 50 ML SYRINGE IVP PRN (16:16)
[2017-10-29] MEDS ORDERED: D5% in Water 1,000 ML IVC PRN (16:16)
[2017-10-29] MEDS ORDERED: Dextrose Gel 15 GM/37.5 ML TUBE PO PRN ×2 (16:16)
[2017-10-29] MEDS: Insulin LISPRO 300 UNITS/3 ML VIAL SQ SCH ×2 (17:00→21:45)
[2017-10-29] MEDS: Heparin 15,000 UNIT in 0.9 % Sodium Chloride 500 ML IV SCH (21:17)
[2017-10-29] MEDS: Ondansetron 4 MG/2 ML VIAL IVP PRN (21:44)
[2017-10-30] MEDS: Nitroglycerin 25 MG/250 ML INFUS..BTL IVC SCH ×4 (00:26→21:17)
[2017-10-30 03:06] LABS: Basophils % 0.1 %; Immature Granulocytes % 0.7 % (0-4); Mean Corpuscular HGB Conc 32.3 g/dL (31.6-35.5); Mean Corpuscular Volume 91.5 fL (83.0-100.0)
[2017-10-30 03:08] LABS: Hemoglobin 8.4 g/dL (12.9-16.9); Immature Platelets 10.6 % (1.1-6.1); Lymphocytes % 9.3 %; Mean Corpuscular Hemoglobin 29.6 pg (28.0-33.3); Mean Platelet Volume 11.5 fL (9.4-12.4); Monocytes % 9.5 %; Neutrophils # 17.1 K/mcL (1.6-8.9); Nucleated Red Blood Cells 0.1 /100 WBC (0); Red Blood Count 2.84 M/mcL (4.19-5.50); Red Cell Distribution Width 13.7 % (11.5-14.5); Segmented Neutrophils % 80.4 %
[2017-10-30 03:09] LABS: Platelet Count 99 K/mcL (140-400)
[2017-10-30 03:20] LABS: BUN/Creatinine Ratio 16 (6-26); Blood Urea Nitrogen 22 mg/dL (6-20); Calcium 8.1 mg/dL (8.6-10.3); Carbon Dioxide 25 mEq/L (23-29); Chloride 105 mEq/L (98-107); Glucose 122 mg/dL (70-105); Osmolality,Calculated 283 (280-300); Potassium 5.1 mEq/L (3.5-5.1); Sodium 134 mEq/L (136-145); eGFR For African Americans > 60 (> 60); eGFR For Non-African Americans 54 (> 60)
--- NOTE | 2017-10-30 03:29 | Pulmonology Progress Note ---
<Ney Lincoln - Last Filed: 10/30/17 03:27> Date of Encounter: 10/30/17 Time of Encounter: 03:27 Assessment and Plan (1) Acute respiratory failure with hypoxia Current Visit: Yes Status: Acute Acute respiratory failure with hypoxia, multifactorial etiology Patient appears to have some pulmonary vascular congestion and bibasilar atelectasis ABG did show some metabolic acidosis with respiratory compensation and hypoxemia Patient is tolerating noninvasive ventilation with BiPAP Incentive spirometry as possible We will provide breathing treatments as needed (2) COPD (chronic obstructive pulmonary disease) Current Visit: Yes Status: Acute Patient has COPD in his history will continue Duoneb nebuliazer , Symbicort Qualifiers: COPD type: chronic bronchitis Qualified Code(s): J41.0 - Simple chronic bronchitis (3) NSTEMI (non-ST elevated myocardial infarction) Current Visit: Yes Status: Acute Patiet presented with NSTEMI Now his POD 2 after CABG Surgery (4) DVT prophylaxis Current Visit: Yes Status: Acute SCDs Subjective Principal diagnosis: NSTEMI, CP, CAD Interval history: The patient says that he is doing overall okay, although he is having generalized pains throughout his body. He says that his chest is not hurting as much as other parts of his body. He is otherwise doing okay. He says that he is breathing okay. Objective PUL Vital signs: Last Vital Signs Temp 98.7 F 10/30/17 00:00 Pulse 81 10/30/17 00:00 Resp 26 10/30/17 00:37 BP 144/66 10/30/17 00:00 Pulse Ox 90 10/30/17 00:37 General appearance: no acute distress, asleep (Awakens easily and is conversant) Eyes: nonicteric ENT: oropharynx moist Neck: supple Effort: normal (On BiPAP) Auscultation: bilateral: wheezes Cardiovascular: regular rate and rhythm Gastrointestinal: normoactive bowel sounds, soft, tender (mildly), non-distended Integumentary: normal Extremities: no cyanosis, no clubbing, edema (2+ ble ) Musculoskeletal: no deformities, ROM normal normal mental status, non-focal exam Results - Laboratory Findings CBC and BMP: 10/30/17 02:55 10/30/17 02:55 ABG ABG pH 7.39 pH Units (7.32-7.45) 10/29/17 08:33 ABG pCO2 37 mmHg (35-45) 10/29/17 08:33 ABG pO2 50 mmHg (85-104) L* 10/29/17 08:33 ABG O2 Saturation 85 % (95-98) L 10/29/17 08:33 PT/INR, D-dimer PT 12.1 Seconds (9.4-12.1) 10/29/17 03:30 Abnormal lab findings: Abnormal lab results WBC 21.3 K/mcL (4.3-11.1) H 10/30/17 02:55 RBC 2.84 M/mcL (4.19-5.50) L 10/30/17 02:55 Hgb 8.4 g/dL (12.9-16.9) L D 10/30/17 02:55 Hct 26.0 % (37.5-50.1) L 10/30/17 02:55 Plt Count 99 K/mcL (140-400) L 10/30/17 02:55 Neutrophils # 17.1 K/mcL (1.6-8.9) H 10/30/17 02:55 Monocytes # 2.0 K/mcL (0.0-1.3) H 10/30/17 02:55 Nucleated RBCs/100 WBC 0.1 /100 WBC (0) H 10/30/17 02:55 Immature Plt Fraction 10.6 % (1.1-6.1) H 10/30/17 02:55 ABG pO2 50 mmHg (85-104) L* 10/29/17 08:33 ABG O2 Saturation 85 % (95-98) L 10/29/17 08:33 ABG Base Excess -3 mEq/L (-2 to 3) L 10/29/17 08:33 ABG Hematocrit 25.0 % (37.5-50.1) L 10/28/17 11:31 Glucose 41 mg/dL (60-95) L 10/28/17 11:31 Sodium 134 mEq/L (136-145) L 10/30/17 02:55 BUN 22 mg/dL (6-20) H 10/30/17 02:55 Creatinine 1.36 mg/dL (0.70-1.30) H 10/30/17 02:55 Est GFR (Non-Af Amer) 54 (> 60) L 10/30/17 02:55 Glucose 122 mg/dL (70-105) H 10/30/17 02:55 POC Glucose 125 (58-89) H 10/29/17 21:38 Calcium 8.1 mg/dL (8.6-10.3) L 10/30/17 02:55 Troponin I 0.37 ng/mL (< 0.04) H* 10/26/17 14:28 B-Natriuretic Peptide 145 pg/mL (Less than 100) H 10/26/17 14:28 Cholesterol 214 mg/dL (< 200) H 10/27/17 03:03 LDL Cholesterol, Calc 149 mg/dL (0-99) H 10/27/17 03:03 HDL Cholesterol 37 mg/dL (40-59) L 10/27/17 03:03 Cholesterol/HDL Ratio 5.8 (0-4.9) H 10/27/17 03:03 - Clinical Findings Intake & Output: Intake & Output 10/29/17 10/29/17 10/30/17 15:59 23:59 07:59 Intake Total 950 / 950 Output Total 190 / 190 651 / 651 560 / 560 Balance 760 / 760 -651 / -651 -560 / -560 Weight 98.3 kg - VTE Documentation of Mechanical Device: Graduated compression elastic hosiery Consult Discharge Plan - Plan [facility]errals: [facility] [Non-Partnered Physician] - <Dony Rollins - Last Filed: 10/30/17 18:43> Date of Encounter: 10/30/17 Assessment and Plan (1) Acute respiratory failure with hypoxia Current Visit: Yes Status: Acute (2) COPD (chronic obstructive pulmonary disease) Current Visit: Yes Status: Acute Qualifiers: COPD type: chronic bronchitis Qualified Code(s): J41.0 - Simple chronic bronchitis (3) NSTEMI (non-ST elevated myocardial infarction) Current Visit: Yes Status: Acute Objective PUL Vital signs: Last Vital Signs Temp 100.0 F H 10/30/17 16:00 Pulse 86 10/30/17 18:00 Resp 14 10/30/17 18:00 BP 137/73 10/30/17 18:00 Pulse Ox 97 10/30/17 18:00 Results - Laboratory Findings CBC and BMP: 10/30/17 02:55 10/30/17 02:55 ABG ABG pH 7.39 pH Units (7.32-7.45) 10/29/17 08:33 ABG pCO2 37 mmHg (35-45) 10/29/17 08:33 ABG pO2 50 mmHg (85-104) L* 10/29/17 08:33 ABG O2 Saturation 85 % (95-98) L 10/29/17 08:33 PT/INR, D-dimer PT 12.1 Seconds (9.4-12.1) 10/29/17 03:30 Abnormal lab findings: Abnormal lab results WBC 21.3 K/mcL (4.3-11.1) H 10/30/17 02:55 RBC 2.84 M/mcL (4.19-5.50) L 10/30/17 02:55 Hgb 8.4 g/dL (12.9-16.9) L D 10/30/17 02:55 Hct 26.0 % (37.5-50.1) L 10/30/17 02:55 Plt Count 99 K/mcL (140-400) L 10/30/17 02:55 Neutrophils # 17.1 K/mcL (1.6-8.9) H 10/30/17 02:55 Monocytes # 2.0 K/mcL (0.0-1.3) H 10/30/17 02:55 Nucleated RBCs/100 WBC 0.1 /100 WBC (0) H 10/30/17 02:55 Immature Plt Fraction 10.6 % (1.1-6.1) H 10/30/17 02:55 ABG pO2 50 mmHg (85-104) L* 10/29/17 08:33 ABG O2 Saturation 85 % (95-98) L 10/29/17 08:33 ABG Base Excess -3 mEq/L (-2 to 3) L 10/29/17 08:33 ABG Hematocrit 25.0 % (37.5-50.1) L 10/28/17 11:31 Glucose 41 mg/dL (60-95) L 10/28/17 11:31 Sodium 134 mEq/L (136-145) L 10/30/17 02:55 BUN 22 mg/dL (6-20) H 10/30/17 02:55 Creatinine 1.36 mg/dL (0.70-1.30) H 10/30/17 02:55 Est GFR (Non-Af Amer) 54 (> 60) L 10/30/17 02:55 Glucose 122 mg/dL (70-105) H 10/30/17 02:55 POC Glucose 182 (58-89) H 10/30/17 15:47 Calcium 8.1 mg/dL (8.6-10.3) L 10/30/17 02:55 Troponin I 0.37 ng/mL (< 0.04) H* 10/26/17 14:28 B-Natriuretic Peptide 145 pg/mL (Less than 100) H 10/26/17 14:28 Cholesterol 214 mg/dL (< 200) H 10/27/17 03:03 LDL Cholesterol, Calc 149 mg/dL (0-99) H 10/27/17 03:03 HDL Cholesterol 37 mg/dL (40-59) L 10/27/17 03:03 Cholesterol/HDL Ratio 5.8 (0-4.9) H 10/27/17 03:03 - Clinical Findings Intake & Output: Intake & Output 10/30/17 10/30/17 10/30/17 07:59 15:59 23:59 Intake Total 440 / 440 200 / 200 Output Total 828 / 828 1150 / 1150 675 / 675 Balance -828 / -828 -710 / -710 -475 / -475 Weight 98.3 kg - Attending Attestation - Attending Attestation I saw and evaluated this patient and my medical decision-making was reviewed with the Resident Physician. I agree with the documented findings, disposition and treatment plan as described except to the extent set forth below. We independently had [id number] contact with the patient Patient seen and examined at bedside Labs, radiology, chart personally reviewed. Management was reviewed during multidisciplinary critical care rounds. WOOD HE[employer] BACK LINER:Patient is awake A X3 no signs of any respiratory distress Pulm:CXR shows signs of COPD with pulmonary vascular congestion that causing V/ Q mismatch intermittent BIPAP and breaks for PO intake Cards:Hemodynamically stable . Patient has A fib with RVR today around noon , started on Amiodarone drip FEN-GI: To follow Nutrition recs Renal: Labs and UOP reviewed ID: No acute issues Heme/Onc:Labs reviewed Endo: Glucose Monitored Integ/MSK: Skin Care per routine ICU Nursing Protocol to prevent ulcers. Lines: All lines examined without evidence of infection : Dispo: Remains critically ill CODE Full Code
[2017-10-30] MEDS ORDERED: Ipratropium/Albuterol Neb 3 ML IH ONE (03:35)
[2017-10-30] MEDS: *HR* HYDROcodone/Acet 5/325 mg TABLET PO PRN ×2 (04:39→18:25)
[2017-10-30] MEDS: niCARdipine 40 MG/200 ML MLS IVC SCH ×3 (04:40→21:16)
[2017-10-30] MEDS: Budesonide/Formoterol 80/4.5 MDI IH SCH ×2 (08:16→19:36)
[2017-10-30] MEDS: Tiotropium 18 MCG inhalation IH SCH (08:17)
--- NOTE | 2017-10-30 08:30 | Cardiothoracic Progress Note ---
Date of Encounter: 10/30/17 Time of Encounter: 08:27 - Assessment and plan (1) NSTEMI (non-ST elevated myocardial infarction) Current Visit: Yes Status: Acute We will check a stat portable chest x-ray. We will discontinue the arterial line and Momin catheter. I will stop the Lopressor and placed the patient back on his preoperative Coreg. We will wean the Cardene and nitroglycerin drips to keep the systolic less than 150. We will leave the patient in the ICU today. I will give him 1 dose of Lasix. The creatinine is stable. - Subjective Interval history: The patient has mild postoperative pain. He feels better than yesterday. Oxygenation is markedly improved. Vital Signs, Last 4 Hours Temp Pulse Resp BP Pulse Ox 10/30/17 06:00 77 24 139/69 95 10/30/17 05:23 24 96 10/30/17 05:00 77 24 134/67 96 10/30/17 04:59 99 F Oxgyen Flow Rate Oxygen Flow Rate (LPM) 15 Clinical Data, last 8 Hours Output, Chest Tube Drainage 14 Amount [#1] Output, Chest Tube Drainage 14 Amount [#1] Output, Chest Tube Drainage 20 Amount [#2] Output, Chest Tube Drainage 20 Amount [#2] Output, Chest Tube Drainage 0 Amount [#3] Output, Chest Tube Drainage 0 Amount [#3] Output, Chest Tube Drainage 0 Amount [#4] Output, Chest Tube Drainage 0 Amount [#4] Weight 10/28/17 10/29/17 10/30/17 23:59 23:59 23:59 Weight 92.5 kg 98.3 kg Lungs are clear to percussion and auscultation. Heart is in a normal sinus rhythm. All incisions are healing well without signs of infection and the sternum is stable. Chest tube drainage is minimal and there is no air leak. The chest tubes were removed. Chest x-ray is relatively clear. - Labs 10/30/17 02:55 10/30/17 02:55 Lab Results, Last 24 hours 10/30/17 10/30/17 02:55 02:55 WBC 21.3 H Hgb 8.4 L D Hct 26.0 L Plt Count 99 L Sodium 134 L Potassium 5.1 Chloride 105 Carbon Dioxide 25 BUN 22 H Creatinine 1.36 H Glucose 122 H Calcium 8.1 L - VTE Documentation of Mechanical Device: Graduated compression elastic hosiery Consult Discharge Plan - Plan Referrals: [facility] [Non-Partnered Physician] -
[2017-10-30] MEDS ORDERED: Furosemide 40 MG/4 ML VIAL IVP ONE (08:35)
[2017-10-30] MEDS: Aspirin 81 MG TAB.CHEW PO SCH (09:34)
[2017-10-30] MEDS: Chlorhexidine Rinse 15 ML MOUTHWASH MM SCH ×2 (09:34→21:15)
[2017-10-30] MEDS: NIFEdipine XL (24 HR) 60 MG TAB.ER.24 PO SCH (09:34)
[2017-10-30] MEDS: Insulin LISPRO 300 UNITS/3 ML VIAL SQ SCH ×4 (09:35→21:17)
[2017-10-30] MEDS ORDERED: Amiodarone Premix 360 MG/200 ML BAG IVC ONE ×2 (11:55→12:17)
[2017-10-30] MEDS ORDERED: Amiodarone Premix 150 MG/100 ML BAG IVPB ONE ×2 (11:55→12:17)
[2017-10-30] MEDS: Amiodarone Premix 360 MG/200 ML BAG IVC SCH (18:27)
[2017-10-30] MEDS ORDERED: Simethicone 80 MG TAB.CHEW PO PRN (21:05)
[2017-10-30] MEDS ORDERED: Pantoprazole 40 MG VIAL IVP ONE (21:05)
[2017-10-30] MEDS: Pantoprazole 40 MG VIAL IVP SCH (21:15)
[2017-10-30] MEDS: *HR* OxyCODONE/APAP 5/325 TABLET PO PRN (21:15)
[2017-10-31] MEDS: *HR* HYDROcodone/Acet 5/325 mg TABLET PO PRN (03:55)
[2017-10-31] MEDS: Nitroglycerin 25 MG/250 ML INFUS..BTL IVC SCH (04:31)
[2017-10-31] MEDS: niCARdipine 40 MG/200 ML MLS IVC SCH (04:32)
[2017-10-31 04:56] LABS: BUN/Creatinine Ratio 14 (6-26); Blood Urea Nitrogen 20 mg/dL (6-20); Calcium 8.5 mg/dL (8.6-10.3); Carbon Dioxide 27 mEq/L (23-29); Chloride 101 mEq/L (98-107); Glucose 111 mg/dL (70-105); Osmolality,Calculated 281 (280-300); Potassium 3.9 mEq/L (3.5-5.1); Sodium 134 mEq/L (136-145); eGFR For African Americans > 60 (> 60); eGFR For Non-African Americans 52 (> 60)
--- NOTE | 2017-10-31 05:51 | Pulmonology Progress Note ---
<Ney Lincoln - Last Filed: 10/31/17 05:41> Date of Encounter: 10/31/17 Time of Encounter: 05:42 Assessment and Plan (1) Acute respiratory failure with hypoxia Current Visit: Yes Status: Acute Acute respiratory failure with hypoxia, multifactorial etiology Patient appears to have some pulmonary vascular congestion and bibasilar atelectasis ABG did show some metabolic acidosis with respiratory compensation and hypoxemia Patient was refusing BiPAP overnight despite poor PaO2 on ABG, but did eventually agree to wear it late in the morning Incentive spirometry as possible We will provide breathing treatments as needed (2) COPD (chronic obstructive pulmonary disease) Current Visit: Yes Status: Acute Patient has COPD in his history will continue Duoneb nebuliazer , Symbicort Qualifiers: COPD type: chronic bronchitis Qualified Code(s): J41.0 - Simple chronic bronchitis (3) NSTEMI (non-ST elevated myocardial infarction) Current Visit: Yes Status: Acute Patient presented with NSTEMI Now his POD 3 after CABG Surgery (4) DVT prophylaxis Current Visit: Yes Status: Acute SCDs Subjective Principal diagnosis: NSTEMI, CP, CAD Interval history: The patient says that he is doing much better than he was yesterday, is not having a significant pain. He also says that his abdomen is no longer tender. He does admit to generalized pains which are present from previous but feels that he is improving overall. Objective PUL Vital signs: Last Vital Signs Temp 98.9 F 10/31/17 05:18 Pulse 72 10/31/17 04:00 Resp 25 10/31/17 04:20 BP 127/75 10/31/17 04:00 Pulse Ox 93 10/31/17 04:20 General appearance: no acute distress, alert Eyes: nonicteric ENT: oropharynx moist Mallampati (class): 3 Effort: normal Auscultation: bilateral: clear Cardiovascular: regular rate and rhythm, other (Strong PMI) Gastrointestinal: normoactive bowel sounds, soft, other (mild distension) Integumentary: normal Extremities: no cyanosis, no clubbing, edema (1+ BLE ) Musculoskeletal: no deformities normal mental status, non-focal exam mood appropriate, affect normal Results - Laboratory Findings CBC and BMP: 10/30/17 02:55 10/31/17 04:25 ABG ABG pH 7.39 pH Units (7.32-7.45) 10/29/17 08:33 ABG pCO2 37 mmHg (35-45) 10/29/17 08:33 ABG pO2 50 mmHg (85-104) L* 10/29/17 08:33 ABG O2 Saturation 85 % (95-98) L 10/29/17 08:33 PT/INR, D-dimer PT 12.1 Seconds (9.4-12.1) 10/29/17 03:30 Abnormal lab findings: Abnormal lab results WBC 21.3 K/mcL (4.3-11.1) H 10/30/17 02:55 RBC 2.84 M/mcL (4.19-5.50) L 10/30/17 02:55 Hgb 8.4 g/dL (12.9-16.9) L D 10/30/17 02:55 Hct 26.0 % (37.5-50.1) L 10/30/17 02:55 Plt Count 99 K/mcL (140-400) L 10/30/17 02:55 Neutrophils # 17.1 K/mcL (1.6-8.9) H 10/30/17 02:55 Monocytes # 2.0 K/mcL (0.0-1.3) H 10/30/17 02:55 Nucleated RBCs/100 WBC 0.1 /100 WBC (0) H 10/30/17 02:55 Immature Plt Fraction 10.6 % (1.1-6.1) H 10/30/17 02:55 ABG pO2 50 mmHg (85-104) L* 10/29/17 08:33 ABG O2 Saturation 85 % (95-98) L 10/29/17 08:33 ABG Base Excess -3 mEq/L (-2 to 3) L 10/29/17 08:33 ABG Hematocrit 25.0 % (37.5-50.1) L 10/28/17 11:31 Glucose 41 mg/dL (60-95) L 10/28/17 11:31 Sodium 134 mEq/L (136-145) L 10/31/17 04:25 Creatinine 1.42 mg/dL (0.70-1.30) H 10/31/17 04:25 Est GFR (Non-Af Amer) 52 (> 60) L 10/31/17 04:25 Glucose 111 mg/dL (70-105) H 10/31/17 04:25 POC Glucose 134 (58-89) H 10/30/17 19:45 Calcium 8.5 mg/dL (8.6-10.3) L 10/31/17 04:25 Troponin I 0.37 ng/mL (< 0.04) H* 10/26/17 14:28 B-Natriuretic Peptide 145 pg/mL (Less than 100) H 10/26/17 14:28 Cholesterol 214 mg/dL (< 200) H 10/27/17 03:03 LDL Cholesterol, Calc 149 mg/dL (0-99) H 10/27/17 03:03 HDL Cholesterol 37 mg/dL (40-59) L 10/27/17 03:03 Cholesterol/HDL Ratio 5.8 (0-4.9) H 10/27/17 03:03 - Clinical Findings Intake & Output: Intake & Output 10/30/17 10/30/17 10/31/17 15:59 23:59 07:59 Intake Total 440 / 440 200 / 200 Output Total 1150 / 1150 925 / 925 300 / 300 Balance -710 / -710 -725 / -725 -300 / -300 Weight 97.2 kg - VTE Documentation of Mechanical Device: Graduated compression elastic hosiery Consult Discharge Plan - Plan Referrals: [facility] [Non-Partnered Physician] - <yLnda Newman - Last Filed: 10/31/17 11:13> Date of Encounter: 10/31/17 Objective PUL Vital signs: Last Vital Signs Temp 99.1 F 10/31/17 08:00 Pulse 62 10/31/17 10:00 Resp 20 10/31/17 10:00 BP 110/65 10/31/17 10:00 Pulse Ox 95 10/31/17 10:00 Results - Laboratory Findings CBC and BMP: 10/31/17 04:25 10/31/17 04:25 ABG ABG pH 7.43 pH Units (7.32-7.45) 10/31/17 06:11 ABG pCO2 45 mmHg (35-45) 10/31/17 06:11 ABG pO2 123 mmHg (85-104) H 10/31/17 06:11 ABG O2 Saturation 99 % (95-98) H 10/31/17 06:11 PT/INR, D-dimer PT 12.1 Seconds (9.4-12.1) 10/29/17 03:30 Abnormal lab findings: Abnormal lab results WBC 14.8 K/mcL (4.3-11.1) H 10/31/17 04:25 RBC 2.97 M/mcL (4.19-5.50) L 10/31/17 04:25 Hgb 8.6 g/dL (12.9-16.9) L 10/31/17 04:25 Hct 27.2 % (37.5-50.1) L 10/31/17 04:25 Plt Count 102 K/mcL (140-400) L 10/31/17 04:25 Neutrophils # 10.6 K/mcL (1.6-8.9) H 10/31/17 04:25 Monocytes # 1.5 K/mcL (0.0-1.3) H 10/31/17 04:25 Nucleated RBCs/100 WBC 0.3 /100 WBC (0) H 10/31/17 04:25 Immature Plt Fraction 10.6 % (1.1-6.1) H 10/30/17 02:55 ABG pO2 123 mmHg (85-104) H 10/31/17 06:11 ABG HCO3 30 mEq/L (21-27) H 10/31/17 06:11 ABG Total CO2 31 mEq/L (20-26) H 10/31/17 06:11 ABG O2 Saturation 99 % (95-98) H 10/31/17 06:11 ABG Base Excess 5 mEq/L (-2 to 3) H 10/31/17 06:11 ABG Hematocrit 25.0 % (37.5-50.1) L 10/28/17 11:31 Glucose 41 mg/dL (60-95) L 10/28/17 11:31 Sodium 134 mEq/L (136-145) L 10/31/17 04:25 Creatinine 1.42 mg/dL (0.70-1.30) H 10/31/17 04:25 Est GFR (Non-Af Amer) 52 (> 60) L 10/31/17 04:25 Glucose 111 mg/dL (70-105) H 10/31/17 04:25 POC Glucose 121 (58-89) H 10/31/17 07:28 Calcium 8.5 mg/dL (8.6-10.3) L 10/31/17 04:25 Troponin I 0.37 ng/mL (< 0.04) H* 10/26/17 14:28 B-Natriuretic Peptide 145 pg/mL (Less than 100) H 10/26/17 14:28 Cholesterol 214 mg/dL (< 200) H 10/27/17 03:03 LDL Cholesterol, Calc 149 mg/dL (0-99) H 10/27/17 03:03 HDL Cholesterol 37 mg/dL (40-59) L 10/27/17 03:03 Cholesterol/HDL Ratio 5.8 (0-4.9) H 10/27/17 03:03 - Clinical Findings Intake & Output: Intake & Output 10/30/17 10/31/17 10/31/17 23:59 07:59 15:59 Intake Total 200 / 200 200 / 200 300 / 300 Output Total 925 / 925 300 / 300 75 / 75 Balance -725 / -725 -100 / -100 225 / 225 Weight 97.2 kg - Attending Attestation I examined this patient and my medical decision-making was reviewed with the Resident Physician. I agree with the documented findings, disposition and treatment plan as described except to the extent set forth below. Patient seen and examined. Labs, radiology, chart personally reviewed. 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 GI: Nutrition per dietary and GI prophylaxis per routine Heme: DVT prophylaxis per routine Renal; urine out put and renal funtion reviewed. Diuresis as tolerated Endorcine: blood glucose is monitored Lines: all lines checked and no evidence of infections Skin: skin care to prevent pressure ulcers per nursing routine care
[2017-10-31 05:55] LABS: Basophils % 0.3 %; Eosinophils # 0.3 K/mcL (0.0-0.6); Eosinophils % 1.7 %; Hematocrit 27.2 % (37.5-50.1); Hemoglobin 8.6 g/dL (12.9-16.9); Immature Granulocytes % 0.4 % (0-4); Lymphocytes # 2.2 K/mcL (0.6-4.6); Lymphocytes % 15.2 %; Mean Corpuscular HGB Conc 31.6 g/dL (31.6-35.5); Mean Corpuscular Volume 91.6 fL (83.0-100.0); Mean Platelet Volume 12.4 fL (9.4-12.4); Monocytes # 1.5 K/mcL (0.0-1.3); Monocytes % 10.4 %; Neutrophils # 10.6 K/mcL (1.6-8.9); Nucleated Red Blood Cells 0.3 /100 WBC (0); Platelet Count 102 K/mcL (140-400); Red Blood Count 2.97 M/mcL (4.19-5.50); Red Cell Distribution Width 13.7 % (11.5-14.5)
[2017-10-31] MEDS: Amiodarone Premix 360 MG/200 ML BAG IVC SCH (05:56)
[2017-10-31 06:14] LABS: ABG Base Excess 5 mEq/L (-2 to 3); ABG HCO3 30 mEq/L (21-27); ABG Oxygen Saturation 99 % (95-98); ABG PCO2 45 mmHg (35-45); ABG PH 7.43 pH Units (7.32-7.45); ABG PO2 123 mmHg (85-104); ABG TCO2 31 mEq/L (20-26); Blood Gas PEEP 10 cm H2O
[2017-10-31] MEDS: Pantoprazole 40 MG VIAL IVP SCH (08:05)
[2017-10-31] MEDS: *HR* OxyCODONE/APAP 5/325 TABLET PO PRN ×4 (08:05→23:59)
[2017-10-31] MEDS: Aspirin 81 MG TAB.CHEW PO SCH (08:06)
[2017-10-31] MEDS: Chlorhexidine Rinse 15 ML MOUTHWASH MM SCH ×2 (08:06→20:55)
[2017-10-31] MEDS: NIFEdipine XL (24 HR) 60 MG TAB.ER.24 PO SCH (08:06)
[2017-10-31] MEDS: Insulin LISPRO 300 UNITS/3 ML VIAL SQ SCH ×4 (08:34→17:00)
[2017-10-31] MEDS: Budesonide/Formoterol 80/4.5 MDI IH SCH ×2 (08:38→20:52)
[2017-10-31] MEDS: Tiotropium 18 MCG inhalation IH SCH (08:39)
--- NOTE | 2017-10-31 08:48 | Cardiothoracic Progress Note ---
Date of Encounter: 10/31/17 Time of Encounter: 08:46 - Assessment and plan (1) NSTEMI (non-ST elevated myocardial infarction) Current Visit: Yes Status: Acute We will switch the patient from IV to by mouth amiodarone at noon. The patient will continue to use BiPAP at night. We will transfer the patient to the floor. - Subjective Interval history: The patient is improving. He does use BiPAP at night. He does have a history of sleep apnea and has used BiPAP at home in the past. Vital Signs, Last 4 Hours Temp Pulse Resp BP Pulse Ox 10/31/17 08:00 99.1 F 82 22 138/76 95 10/31/17 07:00 90 20 143/68 95 10/31/17 06:00 95 20 114/74 98 10/31/17 05:18 98.9 F 10/31/17 05:00 65 25 117/74 95 Oxgyen Flow Rate Oxygen Flow Rate (LPM) 6 Weight 10/29/17 10/30/17 10/31/17 23:59 23:59 23:59 Weight 98.3 kg 97.2 kg Lungs are clear to percussion and auscultation. He is back in normal sinus rhythm on an amiodarone drip. All incisions are healing well without signs of infection and the sternum is stable. Chest x-ray after chest tube removal revealed no pneumothorax. - Labs 10/31/17 04:25 10/31/17 04:25 Lab Results, Last 24 hours 10/31/17 10/31/17 04:25 04:25 WBC 14.8 H Hgb 8.6 L Hct 27.2 L Plt Count 102 L Sodium 134 L Potassium 3.9 Chloride 101 Carbon Dioxide 27 BUN 20 Creatinine 1.42 H Glucose 111 H Calcium 8.5 L - VTE Documentation of Mechanical Device: Graduated compression elastic hosiery Consult Discharge Plan - Plan Referrals: [facility] [Non-Partnered Physician] -
[2017-10-31] MEDS ORDERED: Furosemide 40 MG/4 ML VIAL IVP ONE (08:54)
[2017-10-31] MEDS ORDERED: *HR* Amiodarone 200 MG TABLET PO SCH (09:00)
[2017-10-31] MEDS ORDERED: Amiodarone Premix 360 MG/200 ML BAG IVC SCH (11:22)
[2017-10-31] MEDS ORDERED: Nitroglycerin 0.4 MG TAB.SUBL SL PRN (11:22)
[2017-10-31] MEDS ORDERED: Ondansetron 4 MG/2 ML VIAL IVP PRN (11:22)
[2017-10-31] MEDS ORDERED: Patient Taking Own Medication 1 EACH PO PRN (11:22)
[2017-10-31] MEDS ORDERED: Simethicone 80 MG TAB.CHEW PO PRN (11:22)
[2017-10-31] MEDS ORDERED: D5% in Water 1,000 ML IVC PRN (11:22)
[2017-10-31] MEDS ORDERED: *HR* Promethazine 25 MG/ML VIAL IVP PRN (11:22)
[2017-10-31] MEDS ORDERED: Naloxone 0.4 MG/ML INJ IVP PRN (11:22)
[2017-10-31] MEDS ORDERED: Acetaminophen 325 MG TABLET PO PRN (11:22)
[2017-10-31] MEDS ORDERED: Dextrose Gel 15 GM/37.5 ML TUBE PO PRN ×2 (11:22)
[2017-10-31] MEDS ORDERED: Insulin Regular, Human 100 UNIT/ML IV PRN (11:22)
[2017-10-31] MEDS ORDERED: *HR* Dextrose 50 % in Water (Syg) 50 ML SYRINGE IVP PRN (11:22)
[2017-10-31] MEDS: *HR* Heparin 5,000 UNIT/ML VIAL SQ SCH (16:57)
[2017-10-31] MEDS: *HR* Amiodarone 200 MG TABLET PO SCH (20:56)
[2017-10-31] MEDS: hydrOXYzine pamoate 25 MG CAPSULE PO PRN (23:59)
[2017-11-01 04:16] LABS: Basophils # 0.1 K/mcL (0.0-0.2); Basophils % 0.5 %; Eosinophils % 6.3 %; Hematocrit 27.8 % (37.5-50.1); Hemoglobin 8.8 g/dL (12.9-16.9); Immature Granulocytes % 0.5 % (0-4); Lymphocytes # 2.5 K/mcL (0.6-4.6); Lymphocytes % 16.5 %; Mean Corpuscular HGB Conc 31.7 g/dL (31.6-35.5); Mean Corpuscular Volume 91.7 fL (83.0-100.0); Mean Platelet Volume 12.5 fL (9.4-12.4); Monocytes # 1.4 K/mcL (0.0-1.3); Monocytes % 9.3 %; Neutrophils # 10.2 K/mcL (1.6-8.9); Platelet Count 136 K/mcL (140-400); Red Blood Count 3.03 M/mcL (4.19-5.50); Red Cell Distribution Width 13.7 % (11.5-14.5); Segmented Neutrophils % 66.9 %
[2017-11-01 04:25] LABS: Calcium 8.6 mg/dL (8.6-10.3); Potassium 3.6 mEq/L (3.5-5.1)
[2017-11-01] MEDS: *HR* Heparin 5,000 UNIT/ML VIAL SQ SCH ×2 (06:42→17:18)
[2017-11-01] MEDS: Tiotropium 18 MCG inhalation IH SCH (07:36)
[2017-11-01] MEDS: Budesonide/Formoterol 80/4.5 MDI IH SCH ×2 (07:36→20:36)
--- NOTE | 2017-11-01 07:53 | Cardiothoracic Progress Note ---
Date of Encounter: 11/01/17 Time of Encounter: 07:51 - Assessment and plan (1) NSTEMI (non-ST elevated myocardial infarction) Current Visit: Yes Status: Acute Hopefully, a bed will be available soon and the patient can be transferred to the floor. He is making slow, but steady progress. He will need to be discharged to [facility] for rehabilitation later this week or early next week. - Subjective Interval history: The patient has no complaints. He states that he did not use his BiPAP last night. Vital Signs, Last 4 Hours Pulse Resp BP Pulse Ox 11/01/17 07:36 16 89 11/01/17 06:00 80 14 124/81 90 11/01/17 04:01 16 95 11/01/17 04:00 68 16 122/78 91 Oxgyen Flow Rate Oxygen Flow Rate (LPM) 6 Clinical Data, last 8 Hours Output, Urine Amount 275 Weight 10/30/17 10/31/17 11/01/17 23:59 23:59 23:59 Weight 98.3 kg 97.2 kg Lungs are clear to percussion and auscultation. Heart is in a normal sinus rhythm. All incisions are healing well without signs of infection and the sternum is stable. - Labs 11/01/17 03:45 11/01/17 03:45 Lab Results, Last 24 hours 11/01/17 11/01/17 03:45 03:45 WBC 15.2 H Hgb 8.8 L Hct 27.8 L Plt Count 136 L Sodium 135 L Potassium 3.6 Chloride 100 Carbon Dioxide 25 BUN 28 H Creatinine 1.53 H Glucose 131 H Calcium 8.6 - VTE Documentation of Mechanical Device: Graduated compression elastic hosiery Consult Discharge Plan - Plan Referrals: [facility] [Non-Partnered Physician] -
[2017-11-01] MEDS ORDERED: Patient Taking Own Medication 1 EACH PO PRN (08:21)
[2017-11-01] MEDS: Pantoprazole 40 MG VIAL IVP SCH (08:30)
[2017-11-01] MEDS: Chlorhexidine Rinse 15 ML MOUTHWASH MM SCH ×2 (08:30→20:45)
[2017-11-01] MEDS: *HR* Amiodarone 200 MG TABLET PO SCH ×2 (08:30→20:44)
[2017-11-01] MEDS: NIFEdipine XL (24 HR) 60 MG TAB.ER.24 PO SCH (08:31)
[2017-11-01] MEDS: Aspirin 81 MG TAB.CHEW PO SCH (09:07)
[2017-11-01] MEDS: Insulin LISPRO 300 UNITS/3 ML VIAL SQ SCH ×4 (09:07→21:44)
--- NOTE | 2017-11-01 11:45 | Pulmonology Progress Note ---
<AntonioClay [place] - Last Filed: 11/01/17 11:42> Date of Encounter: 11/01/17 Time of Encounter: 10:00 Assessment and Plan (1) Acute respiratory failure with hypoxia Current Visit: Yes Status: Acute Secondary to multiple factors Patient needs but is non-compliant with BiPap. Slight increase in leukocytosis. Likely post-operative inflammation. Pulmonary source is considered. Plan: -Encourage BiPap as needed -Incentive spirometry. -Breathing treatments: Duoneb nebulizer, spireva. -Consider repeat chest x-ray and empiric antibioitcs as patient's leukocytosis slightly worse. Clinically monitor. (2) NSTEMI (non-ST elevated myocardial infarction) Current Visit: Yes Status: Acute NSTEMI on presentation. CABG 10/28: CABG x3: left internal mammary artery to the LAD, and saphenous vein grafts to the main right coronary artery and obtuse marginal branch #1 of the circumflex. Plan for transfer to floor to tele bed with eventual discharge from [facility] to the [facility] for cardiac rehabilitation. (3) COPD (chronic obstructive pulmonary disease) Current Visit: Yes Status: Acute Hx COPD. Continue duoneb nebulizer, symbicort, incentive spirometry. Qualifiers: COPD type: chronic bronchitis Qualified Code(s): J41.0 - Simple chronic bronchitis (4) DVT prophylaxis Current Visit: Yes Status: Acute SCD Subjective Principal diagnosis: NSTEMI, CP, CAD Interval history: Hospital day 2 Day 4 s/p CABG. No acute events overnight Patient has mild worsening of leukocytosis. Afebrile. Will monitor Overall patient is well appearing. Pain is well controlled. Objective PUL Vital signs: Last Vital Signs Temp 100.4 F H 11/01/17 10:00 Pulse 69 11/01/17 10:58 Resp 18 11/01/17 10:58 BP 122/64 11/01/17 10:58 Pulse Ox 91 11/01/17 10:58 General appearance: no acute distress, alert Eyes: nonicteric ENT: oropharynx moist Neck: supple Effort: normal Auscultation: bilateral: clear Cardiovascular: regular rate and rhythm Gastrointestinal: normoactive bowel sounds, absent bowel sounds, hypoactive bowel sounds, soft, non-tender, non-distended Integumentary: normal Extremities: no cyanosis, no edema, no clubbing, pink and warm, pulses normal, no ischemia or petechiae Musculoskeletal: no deformities normal mental status, non-focal exam, pupils equal and round mood appropriate Results - Laboratory Findings CBC and BMP: 11/01/17 03:45 11/01/17 03:45 ABG ABG pH 7.43 pH Units (7.32-7.45) 10/31/17 06:11 ABG pCO2 45 mmHg (35-45) 10/31/17 06:11 ABG pO2 123 mmHg (85-104) H 10/31/17 06:11 ABG O2 Saturation 99 % (95-98) H 10/31/17 06:11 PT/INR, D-dimer PT 12.1 Seconds (9.4-12.1) 10/29/17 03:30 Abnormal lab findings: Abnormal lab results WBC 15.2 K/mcL (4.3-11.1) H 11/01/17 03:45 RBC 3.03 M/mcL (4.19-5.50) L 11/01/17 03:45 Hgb 8.8 g/dL (12.9-16.9) L 11/01/17 03:45 Hct 27.8 % (37.5-50.1) L 11/01/17 03:45 Plt Count 136 K/mcL (140-400) L 11/01/17 03:45 MPV 12.5 fL (9.4-12.4) H 11/01/17 03:45 Neutrophils # 10.2 K/mcL (1.6-8.9) H 11/01/17 03:45 Monocytes # 1.4 K/mcL (0.0-1.3) H 11/01/17 03:45 Eosinophils # 1.0 K/mcL (0.0-0.6) H 11/01/17 03:45 Nucleated RBCs/100 WBC 0.3 /100 WBC (0) H 10/31/17 04:25 Immature Plt Fraction 10.6 % (1.1-6.1) H 10/30/17 02:55 ABG pO2 123 mmHg (85-104) H 10/31/17 06:11 ABG HCO3 30 mEq/L (21-27) H 10/31/17 06:11 ABG Total CO2 31 mEq/L (20-26) H 10/31/17 06:11 ABG O2 Saturation 99 % (95-98) H 10/31/17 06:11 ABG Base Excess 5 mEq/L (-2 to 3) H 10/31/17 06:11 ABG Hematocrit 25.0 % (37.5-50.1) L 10/28/17 11:31 Glucose 41 mg/dL (60-95) L 10/28/17 11:31 Sodium 135 mEq/L (136-145) L 11/01/17 03:45 BUN 28 mg/dL (6-20) H 11/01/17 03:45 Creatinine 1.53 mg/dL (0.70-1.30) H 11/01/17 03:45 Est GFR ( Amer) 57 (> 60) L 11/01/17 03:45 Est GFR (Non-Af Amer) 47 (> 60) L 11/01/17 03:45 Glucose 131 mg/dL (70-105) H 11/01/17 03:45 POC Glucose 147 (58-89) H 11/01/17 10:54 Troponin I 0.37 ng/mL (< 0.04) H* 10/26/17 14:28 B-Natriuretic Peptide 145 pg/mL (Less than 100) H 10/26/17 14:28 Cholesterol 214 mg/dL (< 200) H 10/27/17 03:03 LDL Cholesterol, Calc 149 mg/dL (0-99) H 10/27/17 03:03 HDL Cholesterol 37 mg/dL (40-59) L 10/27/17 03:03 Cholesterol/HDL Ratio 5.8 (0-4.9) H 10/27/17 03:03 - Clinical Findings Intake & Output: Intake & Output 10/31/17 11/01/17 11/01/17 23:59 07:59 15:59 Intake Total 500 / 500 Output Total 650 / 650 275 / 275 Balance -150 / -150 -275 / -275 - VTE Documentation of Mechanical Device: Graduated compression elastic hosiery Consult Discharge Plan - Plan Referrals: [facility] [Non-Partnered Physician] - <Lynda Newman - Last Filed: 11/01/17 17:31> Date of Encounter: 11/01/17 Objective PUL Vital signs: Last Vital Signs Temp 99.9 F H 11/01/17 16:06 Pulse 79 11/01/17 16:06 Resp 20 11/01/17 16:13 BP 135/56 11/01/17 16:06 Pulse Ox 94 11/01/17 17:13 Results - Laboratory Findings CBC and BMP: 11/01/17 03:45 11/01/17 03:45 ABG ABG pH 7.43 pH Units (7.32-7.45) 10/31/17 06:11 ABG pCO2 45 mmHg (35-45) 10/31/17 06:11 ABG pO2 123 mmHg (85-104) H 10/31/17 06:11 ABG O2 Saturation 99 % (95-98) H 10/31/17 06:11 PT/INR, D-dimer PT 12.1 Seconds (9.4-12.1) 10/29/17 03:30 Abnormal lab findings: Abnormal lab results WBC 15.2 K/mcL (4.3-11.1) H 11/01/17 03:45 RBC 3.03 M/mcL (4.19-5.50) L 11/01/17 03:45 Hgb 8.8 g/dL (12.9-16.9) L 11/01/17 03:45 Hct 27.8 % (37.5-50.1) L 11/01/17 03:45 Plt Count 136 K/mcL (140-400) L 11/01/17 03:45 MPV 12.5 fL (9.4-12.4) H 11/01/17 03:45 Neutrophils # 10.2 K/mcL (1.6-8.9) H 11/01/17 03:45 Monocytes # 1.4 K/mcL (0.0-1.3) H 11/01/17 03:45 Eosinophils # 1.0 K/mcL (0.0-0.6) H 11/01/17 03:45 Nucleated RBCs/100 WBC 0.3 /100 WBC (0) H 10/31/17 04:25 Immature Plt Fraction 10.6 % (1.1-6.1) H 10/30/17 02:55 ABG pO2 123 mmHg (85-104) H 10/31/17 06:11 ABG HCO3 30 mEq/L (21-27) H 10/31/17 06:11 ABG Total CO2 31 mEq/L (20-26) H 10/31/17 06:11 ABG O2 Saturation 99 % (95-98) H 10/31/17 06:11 ABG Base Excess 5 mEq/L (-2 to 3) H 10/31/17 06:11 ABG Hematocrit 25.0 % (37.5-50.1) L 10/28/17 11:31 Glucose 41 mg/dL (60-95) L 10/28/17 11:31 Sodium 135 mEq/L (136-145) L 11/01/17 03:45 BUN 28 mg/dL (6-20) H 11/01/17 03:45 Creatinine 1.53 mg/dL (0.70-1.30) H 11/01/17 03:45 Est GFR ( Amer) 57 (> 60) L 11/01/17 03:45 Est GFR (Non-Af Amer) 47 (> 60) L 11/01/17 03:45 Glucose 131 mg/dL (70-105) H 11/01/17 03:45 POC Glucose 147 (58-89) H 11/01/17 10:54 Troponin I 0.37 ng/mL (< 0.04) H* 10/26/17 14:28 B-Natriuretic Peptide 145 pg/mL (Less than 100) H 10/26/17 14:28 Cholesterol 214 mg/dL (< 200) H 10/27/17 03:03 LDL Cholesterol, Calc 149 mg/dL (0-99) H 10/27/17 03:03 HDL Cholesterol 37 mg/dL (40-59) L 10/27/17 03:03 Cholesterol/HDL Ratio 5.8 (0-4.9) H 10/27/17 03:03 - Clinical Findings Intake & Output: Intake & Output 11/01/17 11/01/17 11/01/17 07:59 15:59 23:59 Output Total 275 / 275 200 / 200 Balance -275 / -275 -200 / -200 - Attending Attestation I examined this patient and my medical decision-making was reviewed with the Resident Physician. I agree with the documented findings, disposition and treatment plan as described except to the extent set forth below. Patient seen and examined. Labs, radiology, chart personally reviewed. Agree with resident's history and physical, assessment, plan with following comments: DENTAL TECHNOLOGIST: Patient follows commands, Pulmonary: Acceptable oxygenation and ventilation and wean off FiO2 to keep SPO2 around 90% with noninvasive ventilation as needed Cardiovascular: stable and patient was transferred to the floor GI: Nutrition per dietary and GI prophylaxis per routine Heme: DVT prophylaxis per routine ID: If continued to have fever and leukocytosis and may consider starting antibiotics and cultures Renal; urine out put and renal funtion reviewed Endorcine: blood glucose is monitored Lines: all lines checked and no evidence of infections Skin: skin care to prevent pressure ulcers per nursing routine care
[2017-11-01] MEDS: *HR* OxyCODONE/APAP 5/325 TABLET PO PRN ×2 (16:07→20:44)
--- NOTE | 2017-11-01 18:33 | Electrocardiograph Report ---
[place] [id number] Test Date: 2017-10-30 Pat Name: Georges Freeman Department: 109 Room: 2N14 Gender: M Freelance Data Entry: SHANNAN : 1960 Requested By: Renny Almanza Order Number: [id number] Reading MD: Roscoe Russell Measurements Intervals [place] Rate: 175 P: DE: 0 QRS: 19 QRSD: 102 T: -75 QT: 248 QTc: 342 Interpretive Statements ATRIAL FIBRILLATION WITH RAPID VENTRICULAR RESPONSE NONSPECIFIC T-WAVE ABNORMALITY Electronically Signed On 11-01-2017 18:32:09 EST by Roscoe Russell
[2017-11-02] MEDS: *HR* OxyCODONE/APAP 5/325 TABLET PO PRN ×4 (02:52→20:38)
[2017-11-02] MEDS: *HR* Heparin 5,000 UNIT/ML VIAL SQ SCH ×2 (05:27→18:11)
[2017-11-02 05:39] LABS: Basophils # 0.1 K/mcL (0.0-0.2); Basophils % 0.4 %; Eosinophils # 1.1 K/mcL (0.0-0.6); Eosinophils % 9.2 %; Hematocrit 23.9 % (37.5-50.1); Hemoglobin 7.6 g/dL (12.9-16.9); Immature Granulocytes % 0.4 % (0-4); Lymphocytes # 2.1 K/mcL (0.6-4.6); Lymphocytes % 18.6 %; Mean Corpuscular HGB Conc 31.8 g/dL (31.6-35.5); Mean Corpuscular Hemoglobin 29.3 pg (28.0-33.3); Mean Corpuscular Volume 92.3 fL (83.0-100.0); Mean Platelet Volume 11.7 fL (9.4-12.4); Monocytes # 1.2 K/mcL (0.0-1.3); Monocytes % 10.2 %; Platelet Count 142 K/mcL (140-400); Red Blood Count 2.59 M/mcL (4.19-5.50); Red Cell Distribution Width 13.8 % (11.5-14.5); Segmented Neutrophils % 61.2 %
[2017-11-02 06:05] LABS: BUN/Creatinine Ratio 19 (6-26); Blood Urea Nitrogen 25 mg/dL (6-20); Calcium 8.1 mg/dL (8.6-10.3); Carbon Dioxide 30 mEq/L (23-29); Chloride 105 mEq/L (98-107); Glucose 102 mg/dL (70-105); Osmolality,Calculated 289 (280-300); Potassium 3.6 mEq/L (3.5-5.1); Sodium 137 mEq/L (136-145); eGFR For African Americans > 60 (> 60); eGFR For Non-African Americans 55 (> 60)
[2017-11-02] MEDS: Budesonide/Formoterol 80/4.5 MDI IH SCH ×2 (08:12→20:44)
[2017-11-02] MEDS: Tiotropium 18 MCG inhalation IH SCH (08:13)
[2017-11-02] MEDS: Pantoprazole 40 MG VIAL IVP SCH (09:09)
[2017-11-02] MEDS: Chlorhexidine Rinse 15 ML MOUTHWASH MM SCH ×2 (09:09→20:34)
[2017-11-02] MEDS: Aspirin 81 MG TAB.CHEW PO SCH (09:10)
[2017-11-02] MEDS: Insulin LISPRO 300 UNITS/3 ML VIAL SQ SCH ×4 (09:10→20:33)
[2017-11-02] MEDS: *HR* Amiodarone 200 MG TABLET PO SCH ×2 (09:10→20:35)
[2017-11-02] MEDS: NIFEdipine XL (24 HR) 60 MG TAB.ER.24 PO SCH (09:10)
--- NOTE | 2017-11-02 09:22 | Cardiothoracic Progress Note ---
Date of Encounter: 11/02/17 Time of Encounter: 09:20 - Assessment and plan (1) NSTEMI (non-ST elevated myocardial infarction) Current Visit: Yes Status: Acute The patient does have the usual, expected acute postoperative blood loss anemia. We will give him 1 unit of packed red blood cells for hemoglobin of 7.6. We will give him 1 dose of IV Lasix. - Subjective Interval history: The patient has no complaints. He is continuing to gain strength. He is not sure whether he wants to go to rehabilitation upon discharge or to be discharged to home. Vital Signs, Last 4 Hours Pulse Resp BP Pulse Ox 11/02/17 08:12 20 95 11/02/17 07:58 78 18 142/71 92 Oxgyen Flow Rate Oxygen Flow Rate (LPM) 10 Clinical Data, last 8 Hours Output, Urine Amount 600 Output, Urine Amount 0 Weight 10/31/17 11/01/17 11/02/17 23:59 23:59 23:59 Weight 97.2 kg 98.2 kg Lungs are clear to percussion and auscultation. Heart is in a normal sinus rhythm. All incisions are healing well without signs of infection and the sternum is stable. Chest x-ray is relatively clear. - Labs 11/02/17 05:30 11/02/17 05:30 Lab Results, Last 24 hours 11/02/17 11/02/17 05:30 05:30 WBC 11.4 H Hgb 7.6 L Hct 23.9 L Plt Count 142 Sodium 137 Potassium 3.6 Chloride 105 Carbon Dioxide 30 H BUN 25 H Creatinine 1.35 H Glucose 102 Calcium 8.1 L - VTE Documentation of Mechanical Device: Graduated compression elastic hosiery Consult Discharge Plan - Plan Referrals: [facility] [Non-Partnered Physician] -
[2017-11-02] MEDS ORDERED: Furosemide 40 MG/4 ML VIAL IVP ONE (09:26)
--- NOTE | 2017-11-02 12:02 | Internal Med Progress Note ---
Date of Encounter: 11/02/17 Time of Encounter: 11:45 - Assessment and plan (1) NSTEMI (non-ST elevated myocardial infarction) Current Visit: Yes Status: Acute Assessment and plan: Status post CABG. Cardiothoracic is following. Continue aspirin, statin, Coreg. (2) Acute respiratory failure with hypoxia Current Visit: Yes Status: Acute Assessment and plan: Multifactorial post op. Atelectatsis and some volume overload and COPD. Pulm is following. c/w nebs. IS. wean O2 as tolerated. Encourage ambulation. Lasix 40 mg today post transfusion (3) Postoperative anemia due to acute blood loss Current Visit: Yes Status: Acute Assessment and plan: Transfuse 1 unit. Check labs in the morning. Expected postop. (4) HTN (hypertension) Current Visit: Yes Status: Chronic Assessment and plan: Stable. Patient is on Coreg her. Also on Procardia. Qualifiers: Hypertension type: essential hypertension Qualified Code(s): I10 - Essential (primary) hypertension (5) GERD (gastroesophageal reflux disease) Current Visit: Yes Status: Chronic Assessment and plan: Continue PPI. Qualifiers: Esophagitis presence: without esophagitis Qualified Code(s): K21.9 - Gastro -esophageal reflux disease without esophagitis (6) Diabetes mellitus Current Visit: Yes Status: Acute Assessment and plan: Continue insulin sliding scale. Continue Accu-Cheks. Qualifiers: Diabetes mellitus type: type 2 Diabetes mellitus complication status: without complication Diabetes mellitus long-term insulin use: without deicer repairer pneumatic use Qualified Code(s): E11.9 - Type 2 diabetes mellitus without complications (7) CKD (chronic kidney disease) stage 3, GFR 30-59 ml/min Current Visit: Yes Status: Acute Assessment and plan: Seems to be around baseline. We will continue to monitor. (8) DVT prophylaxis Current Visit: Yes Status: Acute Assessment and plan: heparin subcutaneous - Subjective Interval history: Patient seen and examined. No acute events. pain is well conrtrolled. On 8 L HFNC. Not on home O2. Transfer out of the ICU status post CABG. This morning hemoglobin 7.6. Admission hemoglobin is 13.3. He is being transfused a unit per cardiothoracic. He is afebrile. No chest pain Patient with PMH of HTN and COPD, COPD, tobacco abuse [facility] that is worse than his baseline. Has elevated troponins. Left heart catheter showed triple-vessel disease and underwent CABG on 10/28. Post CABG the patient had acute hypoxic respiratory failure requiring BiPAP after extubation. The patient has had leukocytosis which has improved with no antibiotics. - Constitutional Vitals: Temp Pulse Resp BP Pulse Ox 98.9 F 60 18 116/65 97 11/02/17 11:29 11/02/17 11:29 11/02/17 11:29 11/02/17 11:29 11/02/17 11:29 General appearance: Present: A&O X 3, pleasant, no acute distress, answers questions appropriately Exam: AGEN: NAD CVS: RRR. S1, S2, No m/r/g RESP: CTAB ABD: Soft, NT, ND, +BS EXT: No edema. 2+ DP. No rashes NEURO: Nonfocaln Internal Medicine: Result - Labs CBC & Chem 7: 11/02/17 05:30 11/02/17 05:30 Labs: Short CBC 11/02/17 Range/Units 05:30 WBC 11.4 H (4.3-11.1) K/mcL Hgb 7.6 L (12.9-16.9) g/dL Hct 23.9 L (37.5-50.1) % Plt Count 142 (140-400) K/mcL Neutrophils # 7.0 (1.6-8.9) K/mcL BMP 11/02/17 05:30 Sodium 137 Potassium 3.6 Chloride 105 Carbon Dioxide 30 H BUN 25 H Creatinine 1.35 H Glucose 102 Calcium 8.1 L - ABG Interpretation ABG results: ABG ABG pH 7.43 pH Units (7.32-7.45) 10/31/17 06:11 ABG pCO2 45 mmHg (35-45) 10/31/17 06:11 ABG pO2 123 mmHg (85-104) H 10/31/17 06:11 ABG O2 Saturation 99 % (95-98) H 10/31/17 06:11 PT/INR, D-dimer PT 12.1 Seconds (9.4-12.1) 10/29/17 03:30 - Impressions Impressions Chest X-Ray 11/02/17 00:01 IMPRESSION: Stable mild bibasilar atelectasis more prominent on the left. D/ / 11/02/2017 07:51:12 Evelio Anaya MD / [email or web address] Interpreting Provider: Evelio Anaya MD - VTE Documentation of Mechanical Device: Graduated compression elastic hosiery Consult Discharge Plan - Plan Referrals: [facility] [Non-Partnered Physician] -
[2017-11-02] MEDS ORDERED: 0.9 % Sodium Chloride 250 ML ONE (12:46)
[2017-11-03 04:35] LABS: Basophils # 0.1 K/mcL (0.0-0.2); Basophils % 0.4 %; Eosinophils # 1.1 K/mcL (0.0-0.6); Eosinophils % 9.2 %; Hematocrit 27.9 % (37.5-50.1); Hemoglobin 8.8 g/dL (12.9-16.9); Immature Granulocytes % 0.4 % (0-4); Lymphocytes # 2.3 K/mcL (0.6-4.6); Lymphocytes % 19.7 %; Mean Corpuscular HGB Conc 31.5 g/dL (31.6-35.5); Mean Corpuscular Hemoglobin 28.9 pg (28.0-33.3); Mean Corpuscular Volume 91.5 fL (83.0-100.0); Mean Platelet Volume 11.7 fL (9.4-12.4); Monocytes # 1.2 K/mcL (0.0-1.3); Monocytes % 10.4 %; Neutrophils # 6.9 K/mcL (1.6-8.9); Platelet Count 196 K/mcL (140-400); Red Blood Count 3.05 M/mcL (4.19-5.50); Segmented Neutrophils % 59.9 %
[2017-11-03 04:50] LABS: BUN/Creatinine Ratio 17 (6-26); Blood Urea Nitrogen 23 mg/dL (6-20); Calcium 8.4 mg/dL (8.6-10.3); Carbon Dioxide 25 mEq/L (23-29); Chloride 104 mEq/L (98-107); Glucose 94 mg/dL (70-105); Osmolality,Calculated 287 (280-300); Potassium 3.9 mEq/L (3.5-5.1); Sodium 137 mEq/L (136-145); eGFR For African Americans > 60 (> 60); eGFR For Non-African Americans 55 (> 60)
[2017-11-03] MEDS: *HR* Heparin 5,000 UNIT/ML VIAL SQ SCH ×2 (06:09→19:23)
[2017-11-03] MEDS: Insulin LISPRO 300 UNITS/3 ML VIAL SQ SCH ×4 (07:57→21:16)
[2017-11-03] MEDS: Pantoprazole 40 MG VIAL IVP SCH (08:20)
[2017-11-03] MEDS: NIFEdipine XL (24 HR) 60 MG TAB.ER.24 PO SCH (08:20)
[2017-11-03] MEDS: *HR* Amiodarone 200 MG TABLET PO SCH (08:20)
[2017-11-03] MEDS: Aspirin 81 MG TAB.CHEW PO SCH (08:20)
[2017-11-03] MEDS: *HR* OxyCODONE/APAP 5/325 TABLET PO PRN ×4 (08:20→23:33)
[2017-11-03] MEDS: Chlorhexidine Rinse 15 ML MOUTHWASH MM SCH ×2 (08:20→21:15)
[2017-11-03] MEDS: Tiotropium 18 MCG inhalation IH SCH (10:25)
[2017-11-03] MEDS: Budesonide/Formoterol 80/4.5 MDI IH SCH ×2 (10:26→20:19)
--- NOTE | 2017-11-03 11:48 | Event Note ---
Date of Encounter: 11/03/17 Time of Encounter: 11:39 Patient seen and examined. Agree with the note as written by the resident. I have provided direct supervision. Transfer out of the ICU status post CABG. This morning hemoglobin 8.8. s/p 1 unit PRBCs yesterday. Admission hemoglobin is 13.3. He is afebrile. No chest pain Patient with PMH of HTN and COPD, COPD, tobacco abuse who [facility] that is worse than his baseline. Has elevated troponins. Left heart catheter showed triple-vessel disease and underwent CABG on 10/28. Post CABG the patient had acute hypoxic respiratory failure requiring BiPAP after extubation. The patient has had leukocytosis which has improved with no antibiotics. CABG care per cardiothoracics Encourage ambulation Encourage IS Monitor H/H c/w ASA/Statin/Coreg BP controlled on Coreg/Procardia SSI/Accucheks Monitor kidney function. Around baseline. DVT ppx Discharge per primary. Will signoff.
--- NOTE | 2017-11-03 12:57 | Cardiothoracic Progress Note ---
Date of Encounter: 11/03/17 Time of Encounter: 12:55 - Assessment and plan (1) NSTEMI (non-ST elevated myocardial infarction) Current Visit: Yes Status: Acute Chest x-ray done this morning revealed a small pneumothorax. The chest tube is to water seal. We will check a chest x-ray tomorrow morning and hopefully can get the chest tube out in the next day or two. - Subjective Interval history: The patient has no complaints and is anxious to go home. Vital Signs, Last 4 Hours Temp Pulse Resp BP Pulse Ox 11/03/17 11:24 97.8 F 61 19 132/63 92 11/03/17 10:27 16 98 Oxgyen Flow Rate Oxygen Flow Rate (LPM) 5 Clinical Data, last 8 Hours Output, Urine Amount 0 Output, Urine Amount 600 Weight 11/01/17 11/02/17 11/03/17 23:59 23:59 23:59 Weight 98.2 kg Lungs are clear to percussion and auscultation. The chest tube does not have an air leak. It has minimal drainage. I took the chest tube off suction. - Labs 11/03/17 04:14 11/03/17 04:14 Lab Results, Last 24 hours 11/03/17 11/03/17 04:14 04:14 WBC 11.5 H Hgb 8.8 L Hct 27.9 L Plt Count 196 Sodium 137 Potassium 3.9 Chloride 104 Carbon Dioxide 25 BUN 23 H Creatinine 1.34 H Glucose 94 Calcium 8.4 L Magnesium 2.0 - VTE Documentation of Mechanical Device: Intermittent pneumatic compression device Consult Discharge Plan - Plan Referrals: [facility] [Non-Partnered Physician] -
--- NOTE | 2017-11-03 13:01 | Cardiothoracic Progress Note ---
Date of Encounter: 11/03/17 Time of Encounter: 13:00 - Assessment and plan (1) NSTEMI (non-ST elevated myocardial infarction) Current Visit: Yes Status: Acute Hopefully, the patient can be discharged early next week with a home health aide. - Subjective Interval history: Chin is ambulating. His oxygenation is slowly improving. Vital Signs, Last 4 Hours Temp Pulse Resp BP Pulse Ox 11/03/17 11:24 97.8 F 61 19 132/63 92 11/03/17 10:27 16 98 Oxgyen Flow Rate Oxygen Flow Rate (LPM) 5 Clinical Data, last 8 Hours Output, Urine Amount 0 Output, Urine Amount 600 Weight 11/01/17 11/02/17 11/03/17 23:59 23:59 23:59 Weight 98.2 kg Lungs are clear to percussion and auscultation. Heart is in a normal sinus rhythm. All his incisions are healing well without signs of infection and the sternum is stable. Pacing wires were removed. - Labs 11/03/17 04:14 11/03/17 04:14 Lab Results, Last 24 hours 11/03/17 11/03/17 04:14 04:14 WBC 11.5 H Hgb 8.8 L Hct 27.9 L Plt Count 196 Sodium 137 Potassium 3.9 Chloride 104 Carbon Dioxide 25 BUN 23 H Creatinine 1.34 H Glucose 94 Calcium 8.4 L Magnesium 2.0 - VTE Documentation of Mechanical Device: Intermittent pneumatic compression device Consult Discharge Plan - Plan Referrals: [facility] [Non-Partnered Physician] -
[2017-11-03] MEDS ORDERED: Furosemide 40 MG TABLET PO SCH (13:15)
[2017-11-04 03:31] LABS: Basophils % 0.3 %; Eosinophils # 1.2 K/mcL (0.0-0.6); Hematocrit 29.6 % (37.5-50.1); Hemoglobin 9.6 g/dL (12.9-16.9); Immature Granulocytes % 0.6 % (0-4); Lymphocytes # 2.5 K/mcL (0.6-4.6); Lymphocytes % 16.6 %; Mean Corpuscular HGB Conc 32.4 g/dL (31.6-35.5); Mean Corpuscular Hemoglobin 29.4 pg (28.0-33.3); Mean Corpuscular Volume 90.5 fL (83.0-100.0); Mean Platelet Volume 11.4 fL (9.4-12.4); Monocytes # 1.6 K/mcL (0.0-1.3); Monocytes % 10.4 %; Neutrophils # 9.8 K/mcL (1.6-8.9); Nucleated Red Blood Cells 0.1 /100 WBC (0); Platelet Count 261 K/mcL (140-400); Red Blood Count 3.27 M/mcL (4.19-5.50); Red Cell Distribution Width 13.9 % (11.5-14.5); Segmented Neutrophils % 64.1 %
[2017-11-04 03:43] LABS: Calcium 8.8 mg/dL (8.6-10.3); Potassium 4.2 mEq/L (3.5-5.1)
[2017-11-04] MEDS: *HR* Heparin 5,000 UNIT/ML VIAL SQ SCH ×2 (05:35→16:51)
--- NOTE | 2017-11-04 07:36 | Cardiothoracic Progress Note ---
Date of Encounter: 11/04/17 Time of Encounter: 07:34 - Assessment and plan (1) NSTEMI (non-ST elevated myocardial infarction) Current Visit: Yes Status: Acute We will continue to ambulate the patient. Hopefully, he can be discharged to home early next week. - Subjective Interval history: The patient is beginning to ambulate and is requiring less inspired oxygen. Vital Signs, Last 4 Hours Temp Pulse Resp BP Pulse Ox 11/04/17 03:51 99.3 F 79 20 138/91 90 11/04/17 03:35 16 94 Oxgyen Flow Rate Oxygen Flow Rate (LPM) 3 Clinical Data, last 8 Hours Output, Urine Amount 600 Output, Urine Amount 300 Weight 11/02/17 11/03/17 11/04/17 23:59 23:59 23:59 Weight 98.2 kg 99.1 kg Lungs are clear to percussion and auscultation. Heart is in a normal sinus rhythm. All incisions are healing well without signs of infection and the sternum is stable. - Labs 11/04/17 03:14 11/04/17 03:14 Lab Results, Last 24 hours 11/04/17 11/04/17 03:14 03:14 WBC 15.3 H Hgb 9.6 L Hct 29.6 L Plt Count 261 Sodium 135 L Potassium 4.2 Chloride 102 Carbon Dioxide 24 BUN 27 H Creatinine 1.50 H Glucose 95 Calcium 8.8 - VTE Documentation of Mechanical Device: Graduated compression elastic hosiery Consult Discharge Plan - Plan Referrals: [facility] [Non-Partnered Physician] -
[2017-11-04] MEDS: Budesonide/Formoterol 80/4.5 MDI IH SCH ×2 (08:00→21:31)
[2017-11-04] MEDS: Tiotropium 18 MCG inhalation IH SCH (08:04)
[2017-11-04] MEDS: Pantoprazole 40 MG VIAL IVP SCH (08:14)
[2017-11-04] MEDS: Chlorhexidine Rinse 15 ML MOUTHWASH MM SCH ×2 (08:15→20:44)
[2017-11-04] MEDS: Aspirin 81 MG TAB.CHEW PO SCH (08:15)
[2017-11-04] MEDS: *HR* OxyCODONE/APAP 5/325 TABLET PO PRN ×4 (08:15→20:48)
[2017-11-04] MEDS: *HR* Amiodarone 200 MG TABLET PO SCH (08:16)
[2017-11-04] MEDS: NIFEdipine XL (24 HR) 60 MG TAB.ER.24 PO SCH (08:26)
[2017-11-05] MEDS: *HR* OxyCODONE/APAP 5/325 TABLET PO PRN ×5 (01:02→20:45)
[2017-11-05 04:29] LABS: Basophils % 0.3 %; Eosinophils # 1.1 K/mcL (0.0-0.6); Eosinophils % 7.6 %; Hematocrit 27.7 % (37.5-50.1); Hemoglobin 8.8 g/dL (12.9-16.9); Immature Granulocytes % 0.7 % (0-4); Lymphocytes # 1.9 K/mcL (0.6-4.6); Lymphocytes % 13.9 %; Mean Corpuscular HGB Conc 31.8 g/dL (31.6-35.5); Mean Corpuscular Hemoglobin 28.9 pg (28.0-33.3); Mean Corpuscular Volume 91.1 fL (83.0-100.0); Mean Platelet Volume 11.8 fL (9.4-12.4); Monocytes # 1.5 K/mcL (0.0-1.3); Monocytes % 10.8 %; Neutrophils # 9.2 K/mcL (1.6-8.9); Platelet Count 260 K/mcL (140-400); Red Blood Count 3.04 M/mcL (4.19-5.50); Red Cell Distribution Width 13.9 % (11.5-14.5); Segmented Neutrophils % 66.7 %
[2017-11-05 04:36] LABS: BUN/Creatinine Ratio 17 (6-26); Blood Urea Nitrogen 24 mg/dL (6-20); Calcium 8.3 mg/dL (8.6-10.3); Carbon Dioxide 23 mEq/L (23-29); Chloride 106 mEq/L (98-107); Glucose 105 mg/dL (70-105); Osmolality,Calculated 288 (280-300); Potassium 3.9 mEq/L (3.5-5.1); Sodium 137 mEq/L (136-145); eGFR For African Americans > 60 (> 60); eGFR For Non-African Americans 52 (> 60)
[2017-11-05] MEDS: *HR* Heparin 5,000 UNIT/ML VIAL SQ SCH ×2 (06:00→17:11)
[2017-11-05] MEDS: Budesonide/Formoterol 80/4.5 MDI IH SCH ×2 (07:58→20:07)
[2017-11-05] MEDS: Tiotropium 18 MCG inhalation IH SCH (07:58)
[2017-11-05] MEDS: *HR* Amiodarone 200 MG TABLET PO SCH (08:15)
[2017-11-05] MEDS: Aspirin 81 MG TAB.CHEW PO SCH (08:15)
[2017-11-05] MEDS: NIFEdipine XL (24 HR) 60 MG TAB.ER.24 PO SCH (08:15)
[2017-11-05] MEDS: Chlorhexidine Rinse 15 ML MOUTHWASH MM SCH ×2 (08:15→20:28)
--- NOTE | 2017-11-05 12:31 | Cardiothoracic Progress Note ---
Date of Encounter: 11/05/17 Time of Encounter: 12:30 Discussion with patient/family: Discussed plan for possible discharge in next 24-48 hours pending clinical course. Discussed importance bowel movement for discharge. Emphasize coughing - Subjective Procedure(s) Performed: Patient seen and examined. Patient complains of chest pain with cough otherwise without complaint. States he has not had a bowel movement as of yet. He feels his breathing is not improved. He is in sinus rhythm Med[employer] the nurse at the bedside. Discussed the importance of coughing, deep breathing and use of incentive spirometer. Discussed the importance of having a bowel movement and consideration for suppository. Discussed possible discharge in next 24-48 hours and clinical course Vital Signs, Last 4 Hours Temp Pulse Resp BP Pulse Ox 11/05/17 12:02 99.1 F 74 18 114/59 89 11/05/17 11:52 16 89 11/05/17 11:27 64 Oxgyen Flow Rate Oxygen Flow Rate (LPM) 4 Clinical Data, last 8 Hours Output, Urine Amount 400 Weight 11/03/17 11/04/17 11/05/17 23:59 23:59 23:59 Weight 99.1 kg 99.6 kg - Physical Examination General: Other Incision: Other (Patient sitting up in chair, no acute distress, for allowing cooperative, dressing intact) Sternum: Other (No evidence of sternal instability with cough and deep breathing ) Pacing Wires: Removed (Pacing wires were removed) Lungs: Other (Breath sounds somewhat diminished bilaterally bases but improved cough and deep breathing) - Labs 11/05/17 00:01 11/05/17 00:01 Lab Results, Last 24 hours 11/05/17 11/05/17 00:01 00:01 WBC 13.8 H Hgb 8.8 L Hct 27.7 L Plt Count 260 Sodium 137 Potassium 3.9 Chloride 106 Carbon Dioxide 23 BUN 24 H Creatinine 1.42 H Glucose 105 Calcium 8.3 L - VTE Documentation of Mechanical Device: Graduated compression elastic hosiery Consult Discharge Plan - Plan Referrals: [facility] [Non-Partnered Physician] - 11/14/17 10:45 am Bryon Rayo MD [Partnered Physician] - 11/24/17 1:00 am Grover Alvarado [Partnered Physician] - 11/30/17 11:30 am
[2017-11-06] MEDS: *HR* OxyCODONE/APAP 5/325 TABLET PO PRN ×3 (00:47→20:27)
[2017-11-06] MEDS: *HR* Heparin 5,000 UNIT/ML VIAL SQ SCH ×2 (05:24→17:18)
[2017-11-06] MEDS: Budesonide/Formoterol 80/4.5 MDI IH SCH ×2 (07:58→20:51)
[2017-11-06] MEDS ORDERED: Furosemide 20 MG/2 ML VIAL IVP ONE (07:59)
[2017-11-06] MEDS: Tiotropium 18 MCG inhalation IH SCH (07:59)
--- NOTE | 2017-11-06 08:07 | Cardiothoracic Progress Note ---
Date of Encounter: 11/06/17 Time of Encounter: 08:05 Discussion with patient/family: Discussed planned to administer 20 mg IV Lasix 1 and begin supplemental potassium 40 mEq by mouth daily - Subjective Procedure(s) Performed: Patient seen and examined. He denies any new problems or new complaints. Notably he had a BM and is feeling better from that perspective. Continues to require oxygen which is currently at 4 L with sats in the low 90s he is remained in sinus rhythm by report on his amiodarone. Notably is not getting any Lasix. Discussed plan to give one dose of IV Lasix today and also will begin supplemental potassium 40 mEq daily given his potassium was somewhat low. Discussed plan with nursing and patient bedside Vital Signs, Last 4 Hours Temp Pulse Resp BP Pulse Ox 11/06/17 07:12 99.0 F 71 16 120/69 89 11/06/17 05:25 72 Oxgyen Flow Rate Oxygen Flow Rate (LPM) 4 Clinical Data, last 8 Hours Output, Urine Amount 400 Weight 11/04/17 11/05/17 11/06/17 23:59 23:59 23:59 Weight 99.1 kg 99.6 kg 97.5 kg - Physical Examination General: Other (Sitting up in bed, no acute distress friendly and cooperative) Incision: Other Sternum: Other (Sternum stable without clinic) Chest tubes: Other (Chest tube sites dressed clean and dry) Lungs: Other (Breath sounds slightly diminished in bases with expiratory crackles improve with cough) - Labs 11/05/17 00:01 11/05/17 00:01 - VTE Documentation of Mechanical Device: Graduated compression elastic hosiery Consult Discharge Plan - Plan Referrals: [facility] [Non-Partnered Physician] - 11/14/17 10:45 am Bryon Rayo MD [Partnered Physician] - 11/24/17 1:00 am Grover Alvarado [Partnered Physician] - 11/30/17 11:30 am
[2017-11-06] MEDS: Chlorhexidine Rinse 15 ML MOUTHWASH MM SCH ×2 (08:08→20:27)
[2017-11-06] MEDS: *HR* Amiodarone 200 MG TABLET PO SCH (08:09)
[2017-11-06] MEDS: Aspirin 81 MG TAB.CHEW PO SCH (08:09)
[2017-11-06] MEDS: NIFEdipine XL (24 HR) 60 MG TAB.ER.24 PO SCH (08:09)
[2017-11-07] MEDS: *HR* OxyCODONE/APAP 5/325 TABLET PO PRN ×3 (04:39→20:59)
[2017-11-07] MEDS: *HR* Heparin 5,000 UNIT/ML VIAL SQ SCH ×2 (05:42→16:26)
[2017-11-07] MEDS: *HR* Amiodarone 200 MG TABLET PO SCH (07:46)
[2017-11-07] MEDS: NIFEdipine XL (24 HR) 60 MG TAB.ER.24 PO SCH (07:46)
[2017-11-07] MEDS: Aspirin 81 MG TAB.CHEW PO SCH (07:46)
[2017-11-07] MEDS: Chlorhexidine Rinse 15 ML MOUTHWASH MM SCH ×2 (07:46→20:59)
[2017-11-07] MEDS: Tiotropium 18 MCG inhalation IH SCH (08:09)
[2017-11-07] MEDS: Budesonide/Formoterol 80/4.5 MDI IH SCH ×2 (08:09→20:35)
--- NOTE | 2017-11-07 08:57 | Cardiothoracic Progress Note ---
Date of Encounter: 11/07/17 Time of Encounter: 08:54 - Assessment and plan (1) NSTEMI (non-ST elevated myocardial infarction) Current Visit: Yes Status: Acute The patient is recovering well from his CABG3. He has a history of COPD and continues to experience shortness of breath and dyspnea on exertion. He is currently on 4.5 L supplemental oxygen via nasal cannula and maintaining oxygen saturations of 98%. He will require supplemental oxygen upon discharge. He would probably be a good candidate for inpatient rehabilitation at the [facility]; however, the patient is asking to be discharged home. I do not believe that it is safe to discharge this patient home until his oxygen requirements are decreased. The assessment and plan as outlined above was discussed with the patient and/or family members who expressed understanding and agreement. All questions were answered. - Subjective Procedure(s) Performed: POD#10 S/P CABG3 Interval history: The patient remained hemodynamic stable overnight. He states that he experiences shortness of breath while walking. He is currently on 4.5 L supplemental oxygen to maintain an oxygen saturation of 98%. Vital Signs, Last 4 Hours Pulse Resp Pulse Ox 11/07/17 08:08 18 96 11/07/17 07:49 69 11/07/17 05:25 17 98 Oxgyen Flow Rate Oxygen Flow Rate (LPM) 4 Clinical Data, last 8 Hours Output, Urine Amount 250 Weight 11/05/17 11/06/17 11/07/17 23:59 23:59 23:59 Weight 99.6 kg 97.5 kg 97.6 kg - Physical Examination General: Conversant, No Apparent Distress Neck: No JVD, Normal carotid pulses Cardiac: Reg Rate and Rhythm, Normal S1 and S2, No Murmur Incision: No signs of infection, Dry/intact dressing Sternum: Stable Lungs: Normal Breath Sounds, No Wheeze, Rales, Rhonchi Neuro: Alert and responsive, No focal deficits noted Vascular: Normal capillary refill Extremities: No Clubbing, No Cyanosis, No Edema - Labs 11/05/17 00:01 11/05/17 00:01 - VTE Documentation of Mechanical Device: Graduated compression elastic hosiery Consult Discharge Plan - Plan [facility]errals: [facility] [Non-Partnered Physician] - 11/14/17 10:45 am Bryon Rayo MD [Partnered Physician] - 11/24/17 1:00 am Grover Alvarado [Partnered Physician] - 11/30/17 11:30 am
[2017-11-08] MEDS: hydrOXYzine pamoate 25 MG CAPSULE PO PRN (01:17)
[2017-11-08] MEDS: *HR* Heparin 5,000 UNIT/ML VIAL SQ SCH ×2 (05:09→16:09)
[2017-11-08] MEDS: *HR* OxyCODONE/APAP 5/325 TABLET PO PRN ×4 (05:09→20:11)
[2017-11-08] MEDS: Tiotropium 18 MCG inhalation IH SCH (08:11)
[2017-11-08] MEDS: Budesonide/Formoterol 80/4.5 MDI IH SCH ×2 (08:12→19:30)
[2017-11-08] MEDS: Aspirin 81 MG TAB.CHEW PO SCH (08:58)
[2017-11-08] MEDS: NIFEdipine XL (24 HR) 60 MG TAB.ER.24 PO SCH (08:58)
[2017-11-08] MEDS: *HR* Amiodarone 200 MG TABLET PO SCH (08:58)
[2017-11-08] MEDS: Chlorhexidine Rinse 15 ML MOUTHWASH MM SCH ×2 (08:58→20:11)
--- NOTE | 2017-11-08 09:27 | Cardiothoracic Progress Note ---
Date of Encounter: 11/08/17 Time of Encounter: 09:25 - Assessment and plan (1) NSTEMI (non-ST elevated myocardial infarction) Current Visit: Yes Status: Acute The patient is recovering well from his CABG3. He has a history of COPD and continues to experience shortness of breath and dyspnea on exertion. He is currently on 4 L supplemental oxygen via nasal cannula and maintaining adequate oxygen saturations. He will require supplemental oxygen upon discharge. He would probably be a good candidate for inpatient rehabilitation at the [facility]; however, the patient is asking to be discharged home. I do not believe that it is safe to discharge this patient home until his oxygen requirements are decreased to 2 L/min via nasal cannula. The assessment and plan as outlined above was discussed with the patient and/or family members who expressed understanding and agreement. All questions were answered. - Subjective Procedure(s) Performed: POD#11 S/P CABG3 Interval history: The patient remained hemodynamic stable overnight. He states that he experiences shortness of breath while walking. He is currently on 4 L supplemental oxygen to maintain adequate oxygen saturations. Vital Signs, Last 4 Hours Temp Pulse Resp BP Pulse Ox 11/08/17 08:50 71 100 11/08/17 08:14 16 97 11/08/17 07:38 90 11/08/17 07:22 98.6 F 75 16 135/75 94 11/08/17 05:27 98.3 F 81 20 141/76 97 Oxgyen Flow Rate Oxygen Flow Rate (LPM) 4 Clinical Data, last 8 Hours Output, Urine Amount 0 Output, Urine Amount 625 Weight 11/06/17 11/07/17 11/08/17 23:59 23:59 23:59 Weight 97.5 kg 97.6 kg - Physical Examination General: Conversant, No Apparent Distress Neck: No JVD, Normal carotid pulses Cardiac: Reg Rate and Rhythm, Normal S1 and S2, No Murmur Incision: No signs of infection, Dry/intact dressing Sternum: Stable Lungs: Normal Breath Sounds, No Wheeze, Rales, Rhonchi Neuro: Alert and responsive, No focal deficits noted Vascular: Normal capillary refill Extremities: No Clubbing, No Cyanosis, No Edema - Labs 11/05/17 00:01 11/05/17 00:01 - VTE Documentation of Mechanical Device: Graduated compression elastic hosiery Consult Discharge Plan - Plan Referrals: [facility] [Non-Partnered Physician] - 11/14/17 10:45 am Bryon Rayo MD [Partnered Physician] - 11/24/17 1:00 am Grover Alvarado [Partnered Physician] - 11/30/17 11:30 am
[2017-11-09] MEDS: *HR* OxyCODONE/APAP 5/325 TABLET PO PRN ×3 (00:10→12:41)
[2017-11-09] MEDS: hydrOXYzine pamoate 25 MG CAPSULE PO PRN (00:10)
[2017-11-09] MEDS: *HR* Heparin 5,000 UNIT/ML VIAL SQ SCH (06:46)
[2017-11-09] MEDS: Aspirin 81 MG TAB.CHEW PO SCH (07:47)
[2017-11-09] MEDS: NIFEdipine XL (24 HR) 60 MG TAB.ER.24 PO SCH (07:47)
[2017-11-09] MEDS: *HR* Amiodarone 200 MG TABLET PO SCH (07:47)
[2017-11-09] MEDS: Chlorhexidine Rinse 15 ML MOUTHWASH MM SCH (07:48)
[2017-11-09 07:55] VITALS: BP 137/80
[2017-11-09] MEDS: Budesonide/Formoterol 80/4.5 MDI IH SCH (08:15)
[2017-11-09] MEDS: Tiotropium 18 MCG inhalation IH SCH (08:16)
--- NOTE | 2017-11-09 08:41 | Discharge Summary ---
Date of Encounter: 11/09/17 Time of Encounter: 09:38 - Discharge Diagnosis (1) NSTEMI (non-ST elevated myocardial infarction) Priority: Primary Status: Acute - Hospital Course Hospital course: Mr. Freeman is a 57 year old hypertensive man with known CAD and COPD who presented to [facility] on 10/26/2017 with complaints of chest pain. The patient had elevated troponin I levels and was admitted for further cardiac workup. He underwent cardiac catheterization and was found to have severe 3 vessel CAD LVEF 55%. In particular the patient had an 80% mid LAD lesion, a 70% proximal LCx lesion, an 85% distal RCA lesion. Patient was recommended for CABG. The patient underwent CABG 3 on 10/28/2017. His postoperative course was complicated by transient atrial fibrillation which converted to normal sinus rhythm with amiodarone. He also had postoperative respiratory insufficiency due to his underlying COPD. Initially he required high flow oxygen in order to maintain adequate oxygen saturation; however, this oxygen need was slowly weaned to 2 L/m via nasal cannula at the time of discharge. The patient was discharged home on POD#12. - Time Spent with Patient Total time spent providing and/or coordinating discharge services: - Discharge Medications Prescriptions: OxyCODONE/APAP 5/325 [Percocet 5/325 MG] 1 each PO Q4HR PRN 7 Days #42 tablet PRN Reason: Severe Pain Atorvastatin [Lipitor] 20 mg PO HS #30 tablet Cyclobenzaprine [Flexeril] 5 mg PO Q8H PRN #24 tablet PRN Reason: Muscle Spasm Home Medications: Albuterol Sulfate [Albuterol Inhaler] 2 puff IH QID PRN 10/26/17 [History] Aspirin 81 mg PO DAILY 10/26/17 [History] Budesonide/Formoterol 80/4.5 [Symbicort 80/4.5] 1 puff IH BID 10/26/17 [History ] Carvedilol 12.5 mg PO BID 10/26/17 [History] NIFEdipine [Nifedipine ER] 60 mg PO DAILY 10/26/17 [History] Nicotine Polacrilex [Nicotine Lozenge] 2 mg BC QID PRN 10/26/17 [History] Omeprazole [PriLOSEC] 20 mg PO DAILY 10/26/17 [History] Tiotropium [Spiriva] 18 mcg IH 0700 10/26/17 [History] hydrOXYzine HCl [Hydroxyzine HCl] 50 mg PO HS PRN 10/26/17 [History] Atorvastatin [Lipitor] 20 mg PO HS #30 tablet 11/09/17 [Rx] Cyclobenzaprine [Flexeril] 5 mg PO Q8H PRN #24 tablet 11/09/17 [Rx] OxyCODONE/APAP 5/325 [Percocet 5/325 MG] 1 each PO Q4HR PRN 7 Days #42 tablet [Rx] Allergies/Adverse Reactions: 3 Allergy/AdvReac Type Severity Reaction Status Date / Time Erythromycin Base Allergy Anaphylaxis Verified 10/26/17 13:53 shellfish derived Allergy Anaphylaxis Verified 10/26/17 13:53 Date of admission: 10/26/17 16:50 Primary care physician: PCP NONE Consults: 10/26/17 16:52 Consult to Cardiothoracic Surgery [CONS] Routine Consulting Provider: Cardiothoracic Surgery Hilda Reason for Consult: possible CABG Call Completed: No 10/28/17 11:57 Consult to Cardiac Rehabilitation-Phase1 [CONS] Routine Comment: Reason for Consult: Post open heart Call Completed: Yes Consult to Police Liaison [CONS] Routine Reason for SW Consult: open heart 10/29/17 08:59 Consult to Pulmonology [CONS] Routine Consulting Provider: [facility] Reason for Consult: hypoxia Call Completed: Yes 10/31/17 11:22 Consult for Pharmacy Education [CONS] Routine Reason for Consult: Post-Op Heart Call Completed: Yes Consult to Occupational Therapy [CONS] Routine Comment: Evaluate, develop and implement POC Reason for Consult: Post-Op Heart Consult to Physical Therapy [CONS] Routine Comment: Evaluate, develop and implement POC Reason for Consult: Post open heart Procedure(s) Performed: 1. Cardiac catheterization performed 10/26/2017. 2. CABG x 3 (SIMPSON to LAD, SVG to OM1, SVG to distal RCA) performed 10/28/2017. 3. Endoscopic vein harvesting, greater saphenous vein from right lower extremity performed 10/28/2017. Discharging clinician: Gwen Muir Anticipated date of discharge: 11/09/17 Physical Examination Vital Signs, Last 4 Hours Temp Pulse Resp BP Pulse Ox 11/09/17 07:54 98.2 F 60 18 137/80 95 General: Conversant, No Apparent Distress Neck: No JVD, Normal carotid pulses Cardiac: Reg Rate and Rhythm, Normal S1 and S2, No Murmur Lungs: Normal Breath Sounds, No Wheeze, Rales, Rhonchi Neuro: Alert and responsive, No focal deficits noted Vascular: Normal capillary refill Abdomen: Soft, Non-tender Skin: No rashes noted on visualized skin Musculoskeletal: No Chest Wall Tenderness Extremities: No Clubbing, No Cyanosis, No Edema - Patient Status Disposition: Home, Self-Care Condition: Fair Overall status at discharge: patient is progressing back to baseline - Discharge Instructions [facility] Up With: [facility] [[facility]nered Physician] - 11/14/17 10:45 am Bryon Rayo MD [Partnered Physician] - 11/24/17 1:00 am Grover Alvarado [Partnered Physician] - 11/30/17 11:30 am - Diet and Activity Activity: sternal precautions, no driving for four weeks, no lifting greater than 10 pounds for eight weeks, wear oxygen at all times Diet: low fat, low cholesterol Open Heart Registry Aspirin Cont/Prescribed at DC: Yes Beta Steve Cont/Prescribed at DC: Yes Statin Cont/Prescribed at DC: Yes REJI/ARB Cont/Prescribed at DC: Not indicated (LVEF greater than 50%.) - VTE Documentation of Mechanical Device: Graduated compression elastic hosiery
== END 2017-11-09 14:40 | disposition home or self-care (01) | DRG 233 ==
LOC: EMEROO 13:36 → 2NENU 16:50 → ICNU 10-28 08:55 → 2NNU 11-01 15:56
PROVIDERS: ADMIT Family Medicine; ATTEND Internal Medicine

== ENCOUNTER 2019-07-17 14:08 | Inpatient (IN) ==
[2019-07-17] MEDS ORDERED: Naloxone 0.4 MG/ML INJ IVP PRN (17:50)
[2019-07-17] MEDS ORDERED: Ipratropium/Albuterol Neb 3 ML IH PRN (18:08)
[2019-07-17 18:36] LABS: Basophils % 0.4 %; Eosinophils # 0.1 K/mcL (0.0-0.6); Eosinophils % 0.7 %; Hematocrit 44.2 % (37.5-50.1); Hemoglobin 14.7 g/dL (12.9-16.9); Immature Granulocytes % 0.2 % (0-4); Lymphocytes # 2.7 K/mcL (0.6-4.6); Mean Corpuscular HGB Conc 33.3 g/dL (31.6-35.5); Mean Corpuscular Hemoglobin 30.1 pg (28.0-33.3); Mean Corpuscular Volume 90.4 fL (83.0-100.0); Mean Platelet Volume 11.2 fL (9.4-12.4); Monocytes # 1.4 K/mcL (0.0-1.3); Monocytes % 13.7 %; Neutrophils # 5.7 K/mcL (1.6-8.9); Platelet Count 226 K/mcL (140-400); Red Blood Count 4.89 M/mcL (4.19-5.50); White Blood Count 9.9 K/mcL (4.3-11.1)
[2019-07-17 18:53] LABS: Calcium 9.3 mg/dL (8.6-10.3); Potassium 3.8 mEq/L (3.5-5.1)
[2019-07-17] MEDS ORDERED: *HR* Heparin 5,000 UNIT/ML VIAL IVP PRN ×2 (19:42→19:43)
[2019-07-17] MEDS ORDERED: Nitroglycerin 0.4 MG TAB.SUBL SL PRN (19:45)
[2019-07-17] MEDS ORDERED: *HR* Heparin 5,000 UNIT/ML VIAL IVP ONE (19:45)
[2019-07-17] MEDS: Heparin 25,000 UNIT/250 ML D5W 25,000 UNIT/250 ML IV.SOLN IVC SCH (20:08)
[2019-07-17] MEDS ORDERED: Acetaminophen 325 MG TABLET PO ONE (20:26)
[2019-07-17] MEDS ORDERED: Perflutren Lipid Microsphere 1.3 ML in 0.9 % Sodium Chloride 8.7 ML IVP ONE (22:17)
[2019-07-17] MEDS ORDERED: Perflutren Lipid Microsphere 2 ML VIAL ONE (22:18)
[2019-07-17] MEDS: Budesonide/Formoterol 160/4.5 1 PUFF INH IH SCH (22:35)
[2019-07-18] MEDS: hydrALAZINE 10 MG TABLET PO PRN ×2 (05:55→20:59)
[2019-07-18 06:11] LABS: Basophils # 0.1 K/mcL (0.0-0.2); Basophils % 0.7 %; Eosinophils # 0.1 K/mcL (0.0-0.6); Eosinophils % 1.7 %; Hematocrit 42.8 % (37.5-50.1); Immature Granulocytes % 0.3 % (0-4); Lymphocytes # 2.3 K/mcL (0.6-4.6); Lymphocytes % 30.9 %; Mean Corpuscular HGB Conc 32.7 g/dL (31.6-35.5); Mean Corpuscular Hemoglobin 30.1 pg (28.0-33.3); Mean Platelet Volume 11.8 fL (9.4-12.4); Monocytes % 13.5 %; Platelet Count 217 K/mcL (140-400); Red Blood Count 4.65 M/mcL (4.19-5.50); Red Cell Distribution Width 14.9 % (11.5-14.5); Segmented Neutrophils % 52.9 %; White Blood Count 7.6 K/mcL (4.3-11.1)
[2019-07-18 06:30] LABS: Calcium 9.3 mg/dL (8.6-10.3); Magnesium 2.2 mg/dL (1.6-2.6); Phosphorous 4.7 mg/dL (2.7-4.5); Potassium 4.3 mEq/L (3.5-5.1)
[2019-07-18] MEDS: Budesonide/Formoterol 160/4.5 1 PUFF INH IH SCH ×2 (07:16→21:42)
[2019-07-18] MEDS ORDERED: Furosemide 40 MG/4 ML VIAL IVP SCH (09:00)
[2019-07-18] MEDS: BuPROPion XL (24 HR) 150 MG TABLET PO SCH (10:38)
[2019-07-18] MEDS: Fluticasone Propionate Nasal 50 MCG/SPRAY BOTTLE NS SCH (10:39)
[2019-07-18] MEDS: Aspirin Enteric Coated 81 MG Tablet PO SCH (13:44)
[2019-07-18] MEDS: Insulin LISPRO 300 UNITS/3 ML VIAL SQ SCH ×2 (16:37→20:41)
[2019-07-18] MEDS: Acetaminophen 325 MG TABLET PO PRN (17:01)
[2019-07-18] MEDS: Heparin 25,000 UNIT/250 ML D5W 25,000 UNIT/250 ML IV.SOLN IVC SCH (19:24)
[2019-07-18] MEDS ORDERED: traMADol 50 MG TABLET PO ONE (21:45)
[2019-07-18] MEDS ORDERED: Acetaminophen IV 500 MG/50 ML INFUS..BTL IVPB ONE (23:07)
[2019-07-19 05:12] LABS: Basophils # 0.1 K/mcL (0.0-0.2); Basophils % 0.6 %; Eosinophils # 0.1 K/mcL (0.0-0.6); Eosinophils % 1.5 %; Hematocrit 43.3 % (37.5-50.1); Hemoglobin 14.1 g/dL (12.9-16.9); Immature Granulocytes % 0.2 % (0-4); Lymphocytes # 2.3 K/mcL (0.6-4.6); Mean Corpuscular HGB Conc 32.6 g/dL (31.6-35.5); Mean Corpuscular Hemoglobin 29.7 pg (28.0-33.3); Mean Corpuscular Volume 91.4 fL (83.0-100.0); Mean Platelet Volume 11.7 fL (9.4-12.4); Monocytes # 0.9 K/mcL (0.0-1.3); Monocytes % 11.2 %; Neutrophils # 4.7 K/mcL (1.6-8.9); Platelet Count 227 K/mcL (140-400); Red Blood Count 4.74 M/mcL (4.19-5.50); Red Cell Distribution Width 14.7 % (11.5-14.5); Segmented Neutrophils % 58.5 %; White Blood Count 8.1 K/mcL (4.3-11.1)
[2019-07-19 05:39] LABS: Calcium 9.6 mg/dL (8.6-10.3); Potassium 4.8 mEq/L (3.5-5.1)
[2019-07-19] MEDS: Budesonide/Formoterol 160/4.5 1 PUFF INH IH SCH ×2 (07:32→19:56)
[2019-07-19] MEDS: Insulin LISPRO 300 UNITS/3 ML VIAL SQ SCH ×4 (09:48→20:42)
[2019-07-19] MEDS: Acetaminophen 325 MG TABLET PO PRN ×2 (09:58→22:36)
[2019-07-19] MEDS: Aspirin Enteric Coated 81 MG Tablet PO SCH (09:59)
[2019-07-19] MEDS: BuPROPion XL (24 HR) 150 MG TABLET PO SCH (09:59)
[2019-07-19] MEDS: Fluticasone Propionate Nasal 50 MCG/SPRAY BOTTLE NS SCH (10:01)
[2019-07-19] MEDS ORDERED: 0.9 % Sodium Chloride 1,000 ML IVC SCH (12:15)
[2019-07-19 12:50] LABS: Bilirubin,Urine Small (Negative); Blood,Urine Negative (Negative); Clarity,Urine Clear (Clear); Color,Urine Yellow (Yellow); Glucose,Urine (UA) Normal (Normal); Ketones,Urine Negative (Negative); Leukocyte Esterase,Urine Negative (Negative); Nitrite,Urine Negative (Negative); Protein,Urine 30 mg/dL (Neg-Trace); Specific Gravity,Urine > 1.030 (1.010-1.025); Urobilinogen,Urine Normal (Normal)
[2019-07-19 12:52] LABS: Bacteria,Urine None Seen per hpf (None-Few); Hyaline Casts,Urine None Seen per lpf (None-Few); RBC,Urine 0-3 per hpf (0-3); Squamous Epithelial Cell,Urine Few per lpf (None-Few); WBC,Urine 0-3 per hpf (0-3)
[2019-07-19 12:58] LABS: Protein/Creatinine Ratio,Urine 0.15 mg/mg (0.00-0.20)
[2019-07-19] MEDS: Heparin 25,000 UNIT/250 ML D5W 25,000 UNIT/250 ML IV.SOLN IVC SCH (20:41)
[2019-07-20 06:41] LABS: Calcium 8.9 mg/dL (8.6-10.3); Potassium 4.4 mEq/L (3.5-5.1)
[2019-07-20] MEDS: Budesonide/Formoterol 160/4.5 1 PUFF INH IH SCH ×2 (07:58→22:47)
[2019-07-20] MEDS: BuPROPion XL (24 HR) 150 MG TABLET PO SCH (08:56)
[2019-07-20] MEDS: Aspirin Enteric Coated 81 MG Tablet PO SCH (08:57)
[2019-07-20] MEDS: Insulin LISPRO 300 UNITS/3 ML VIAL SQ SCH ×4 (08:57→20:26)
[2019-07-20] MEDS: Fluticasone Propionate Nasal 50 MCG/SPRAY BOTTLE NS SCH (08:58)
[2019-07-20] MEDS ORDERED: 0.9 % Sodium Chloride 1,000 ML IVC SCH (10:30)
[2019-07-20] MEDS: amLODIPine 5 MG TABLET PO SCH (13:18)
[2019-07-21] MEDS: Acetaminophen 325 MG TABLET PO PRN ×2 (00:31→14:39)
[2019-07-21 02:41] LABS: Potassium 4.8 mEq/L (3.5-5.1)
[2019-07-21] MEDS: *HR* Heparin 5,000 UNIT/ML VIAL SQ SCH ×3 (05:50→22:11)
[2019-07-21] MEDS: Insulin LISPRO 300 UNITS/3 ML VIAL SQ SCH ×4 (08:50→22:06)
[2019-07-21] MEDS: BuPROPion XL (24 HR) 150 MG TABLET PO SCH (08:50)
[2019-07-21] MEDS: Aspirin Enteric Coated 81 MG Tablet PO SCH (08:50)
[2019-07-21] MEDS: amLODIPine 5 MG TABLET PO SCH (08:50)
[2019-07-21] MEDS: Fluticasone Propionate Nasal 50 MCG/SPRAY BOTTLE NS SCH (08:51)
[2019-07-21] MEDS ORDERED: 0.9 % Sodium Chloride 1,000 ML IVC SCH ×2 (10:30→12:00)
[2019-07-21] MEDS: Budesonide/Formoterol 160/4.5 1 PUFF INH IH SCH ×2 (10:53→20:09)
[2019-07-21] MEDS: Ondansetron 4 MG/2 ML VIAL IVP PRN (14:39)
[2019-07-22 02:57] LABS: Calcium 9.2 mg/dL (8.6-10.3)
[2019-07-22] MEDS: *HR* Heparin 5,000 UNIT/ML VIAL SQ SCH ×3 (06:01→23:05)
[2019-07-22] MEDS: Insulin LISPRO 300 UNITS/3 ML VIAL SQ SCH ×4 (08:07→23:38)
[2019-07-22] MEDS: Aspirin Enteric Coated 81 MG Tablet PO SCH (09:28)
[2019-07-22] MEDS: amLODIPine 5 MG TABLET PO SCH (09:28)
[2019-07-22] MEDS: BuPROPion XL (24 HR) 150 MG TABLET PO SCH (09:29)
[2019-07-22] MEDS: Fluticasone Propionate Nasal 50 MCG/SPRAY BOTTLE NS SCH (09:32)
[2019-07-22] MEDS: Budesonide/Formoterol 160/4.5 1 PUFF INH IH SCH ×2 (10:24→19:52)
[2019-07-22] MEDS ORDERED: Albumin 25% 25gram/100mL 25 GM/100 ML IV.SOLN IVPB SCH (11:51)
[2019-07-22] MEDS ORDERED: 0.9 % Sodium Chloride 1,000 ML IVC SCH (12:00)
[2019-07-22] MEDS: Ondansetron 4 MG/2 ML VIAL IVP PRN (14:24)
[2019-07-22] MEDS: Albumin 25% 25gram/100mL 25 GM/100 ML IV.SOLN IVPB SCH (23:03)
[2019-07-22] MEDS: *HR* Acetylcysteine 20% 600 MG/3 ML ORAL SYRINGE PO SCH (23:04)
[2019-07-23 03:45] LABS: Calcium 9.8 mg/dL (8.6-10.3); Potassium 4.4 mEq/L (3.5-5.1)
[2019-07-23] MEDS: Albumin 25% 25gram/100mL 25 GM/100 ML IV.SOLN IVPB SCH ×3 (06:27→21:59)
[2019-07-23] MEDS: *HR* Heparin 5,000 UNIT/ML VIAL SQ SCH ×3 (06:27→21:57)
[2019-07-23] MEDS: Insulin LISPRO 300 UNITS/3 ML VIAL SQ SCH ×4 (08:00→22:08)
[2019-07-23] MEDS: BuPROPion XL (24 HR) 150 MG TABLET PO SCH (09:25)
[2019-07-23] MEDS: amLODIPine 5 MG TABLET PO SCH (09:25)
[2019-07-23] MEDS: Aspirin Enteric Coated 81 MG Tablet PO SCH (09:25)
[2019-07-23] MEDS: *HR* Acetylcysteine 20% 600 MG/3 ML ORAL SYRINGE PO SCH ×2 (09:26→22:07)
[2019-07-23] MEDS: Fluticasone Propionate Nasal 50 MCG/SPRAY BOTTLE NS SCH (09:30)
[2019-07-23] MEDS: Budesonide/Formoterol 160/4.5 1 PUFF INH IH SCH ×2 (09:41→21:53)
[2019-07-23] MEDS: Acetaminophen 325 MG TABLET PO PRN (16:16)
[2019-07-24] MEDS: Albumin 25% 25gram/100mL 25 GM/100 ML IV.SOLN IVPB SCH ×3 (06:30→22:05)
[2019-07-24] MEDS: *HR* Heparin 5,000 UNIT/ML VIAL SQ SCH ×3 (06:31→20:38)
[2019-07-24] MEDS: Budesonide/Formoterol 160/4.5 1 PUFF INH IH SCH ×2 (07:38→22:32)
[2019-07-24 08:19] LABS: Basophils # 0.1 K/mcL (0.0-0.2); Basophils % 0.6 %; Eosinophils # 0.1 K/mcL (0.0-0.6); Eosinophils % 1.4 %; Hematocrit 38.5 % (37.5-50.1); Hemoglobin 12.6 g/dL (12.9-16.9); Immature Granulocytes % 0.2 % (0-4); Lymphocytes % 23.3 %; Mean Corpuscular HGB Conc 32.7 g/dL (31.6-35.5); Mean Corpuscular Hemoglobin 30.5 pg (28.0-33.3); Mean Corpuscular Volume 93.2 fL (83.0-100.0); Mean Platelet Volume 11.8 fL (9.4-12.4); Monocytes % 11.5 %; Neutrophils # 5.4 K/mcL (1.6-8.9); Platelet Count 206 K/mcL (140-400); Red Blood Count 4.13 M/mcL (4.19-5.50); Red Cell Distribution Width 14.4 % (11.5-14.5); White Blood Count 8.6 K/mcL (4.3-11.1)
[2019-07-24 08:36] LABS: Calcium 10.3 mg/dL (8.6-10.3); Potassium 4.3 mEq/L (3.5-5.1)
[2019-07-24] MEDS: amLODIPine 5 MG TABLET PO SCH (10:02)
[2019-07-24] MEDS: Fluticasone Propionate Nasal 50 MCG/SPRAY BOTTLE NS SCH (10:02)
[2019-07-24] MEDS: BuPROPion XL (24 HR) 150 MG TABLET PO SCH (10:02)
[2019-07-24] MEDS: Aspirin Enteric Coated 81 MG Tablet PO SCH (10:02)
[2019-07-24] MEDS: *HR* Acetylcysteine 20% 600 MG/3 ML ORAL SYRINGE PO SCH ×2 (10:03→20:45)
[2019-07-24] MEDS ORDERED: 0.9 % Sodium Chloride 1,000 ML IVC SCH ×2 (12:15→15:45)
[2019-07-24] MEDS ORDERED: 0.9 % Sodium Chloride 1,000 ML ONE (13:58)
[2019-07-24] MEDS ORDERED: *HR* Midazolam HCl 2 MG/2 ML VIAL ONE ×2 (14:44→15:13)
[2019-07-24] MEDS ORDERED: *HR* FentaNYL (PF) 100 MCG/2 ML VIAL ONE (14:45)
[2019-07-24] MEDS ORDERED: *HR* Bivalirudin 250 MG VIAL IVC ONE (15:13)
[2019-07-24] MEDS ORDERED: *HR* Ticagrelor 90 MG TABLET ONE (15:27)
[2019-07-24] MEDS: Acetaminophen 325 MG TABLET PO PRN (16:54)
[2019-07-24] MEDS: Insulin LISPRO 300 UNITS/3 ML VIAL SQ SCH ×3 (17:15→20:45)
[2019-07-24] MEDS: hydrALAZINE 10 MG TABLET PO PRN (17:42)
[2019-07-24] MEDS ORDERED: *HR* OxyCODONE Immed Rel 5 MG TABLET PO STA (18:22)
[2019-07-24] MEDS ORDERED: *HR* Atropine Sulfate 1 MG/10 ML SYRINGE ONE (19:24)
[2019-07-25 04:27] LABS: Calcium 10.2 mg/dL (8.6-10.3)
[2019-07-25] MEDS: Albumin 25% 25gram/100mL 25 GM/100 ML IV.SOLN IVPB SCH (06:23)
[2019-07-25] MEDS: *HR* Heparin 5,000 UNIT/ML VIAL SQ SCH ×3 (06:27→20:17)
[2019-07-25] MEDS: Budesonide/Formoterol 160/4.5 1 PUFF INH IH SCH ×2 (07:30→21:28)
[2019-07-25] MEDS: Insulin LISPRO 300 UNITS/3 ML VIAL SQ SCH ×4 (08:29→20:20)
[2019-07-25] MEDS: Aspirin Enteric Coated 81 MG Tablet PO SCH (08:40)
[2019-07-25] MEDS: amLODIPine 5 MG TABLET PO SCH (08:40)
[2019-07-25] MEDS: BuPROPion XL (24 HR) 150 MG TABLET PO SCH (08:40)
[2019-07-25] MEDS: Fluticasone Propionate Nasal 50 MCG/SPRAY BOTTLE NS SCH (08:41)
[2019-07-25] MEDS: *HR* Acetylcysteine 20% 600 MG/3 ML ORAL SYRINGE PO SCH ×2 (09:31→20:20)
[2019-07-25] MEDS ORDERED: Famotidine 20 MG TABLET PO SCH (21:00)
[2019-07-26 01:56] LABS: Basophils % 0.4 %; Eosinophils # 0.1 K/mcL (0.0-0.6); Hemoglobin 13.1 g/dL (12.9-16.9); Immature Granulocytes % 0.3 % (0-4); Lymphocytes # 2.1 K/mcL (0.6-4.6); Lymphocytes % 23.2 %; Mean Corpuscular HGB Conc 33.6 g/dL (31.6-35.5); Mean Corpuscular Hemoglobin 30.2 pg (28.0-33.3); Mean Corpuscular Volume 89.9 fL (83.0-100.0); Monocytes % 11.5 %; Neutrophils # 5.7 K/mcL (1.6-8.9); Platelet Count 217 K/mcL (140-400); Red Blood Count 4.34 M/mcL (4.19-5.50); Red Cell Distribution Width 14.6 % (11.5-14.5); Segmented Neutrophils % 63.6 %
[2019-07-26 02:36] LABS: Calcium 10.2 mg/dL (8.6-10.3); Magnesium 2.2 mg/dL (1.6-2.6); Phosphorous 4.9 mg/dL (2.7-4.5); Potassium 4.1 mEq/L (3.5-5.1)
[2019-07-26] MEDS: *HR* Heparin 5,000 UNIT/ML VIAL SQ SCH (05:11)
[2019-07-26] MEDS: hydrALAZINE 10 MG TABLET PO PRN (05:20)
[2019-07-26] MEDS ORDERED: Tiotropium 18 MCG inhalation IH SCH (07:00)
[2019-07-26 07:35] VITALS: BP 153/77
[2019-07-26] MEDS: Aspirin Enteric Coated 81 MG Tablet PO SCH (08:28)
[2019-07-26] MEDS: amLODIPine 5 MG TABLET PO SCH (08:28)
[2019-07-26] MEDS: BuPROPion XL (24 HR) 150 MG TABLET PO SCH (08:28)
[2019-07-26] MEDS: Insulin LISPRO 300 UNITS/3 ML VIAL SQ SCH (08:36)
[2019-07-26] MEDS: *HR* Acetylcysteine 20% 600 MG/3 ML ORAL SYRINGE PO SCH (08:38)
[2019-07-26] MEDS: Fluticasone Propionate Nasal 50 MCG/SPRAY BOTTLE NS SCH (08:40)
[2019-07-26] MEDS: Budesonide/Formoterol 160/4.5 1 PUFF INH IH SCH (11:04)
== END 2019-07-26 11:42 | disposition home or self-care (01) | DRG 247 ==
LOC: INTOOBSV 15:48 → 2NENU 15:48 → SUATTDRO 15:48 → 2NNU 07-24 17:33
PROVIDERS: ADMIT Student in an Organized Health Care Education/Training Program; ATTEND Internal Medicine

== ENCOUNTER 2021-01-30 19:21 | Inpatient (IN) ==
[2021-01-30] MEDS ORDERED: Fluticasone Propionate Nasal 50 MCG/SPRAY BOTTLE NS PRN (22:55)
[2021-01-30] MEDS ORDERED: Naloxone 0.4 MG/ML INJ IVP PRN (22:58)
[2021-01-30] MEDS ORDERED: Ondansetron 4 MG/2 ML VIAL IVP PRN (23:04)
[2021-01-30] MEDS ORDERED: *HR* HYDROcodone/Acet 5/325 mg TABLET PO PRN (23:04)
[2021-01-30] MEDS ORDERED: Pantoprazole 40 MG VIAL IVP SCH (23:45)
[2021-01-31] MEDS: Acetaminophen 325 MG TABLET PO PRN (01:13)
[2021-01-31] MEDS: hydrOXYzine pamoate 25 MG CAPSULE PO PRN (01:13)
[2021-01-31] MEDS ORDERED: Morphine Sulfate 2 MG/ML SYRINGE IVP ONE ×2 (01:20→04:01)
[2021-01-31] MEDS: Gabapentin 100 MG CAPSULE PO SCH ×3 (04:17→20:42)
[2021-01-31 05:24] LABS: Basophils % 0.3 %; Eosinophils # 0.1 K/mcL (0.0-0.6); Eosinophils % 1.1 %; Hematocrit 39.5 % (37.5-50.1); Hemoglobin 12.8 g/dL (12.9-16.9); Immature Granulocytes % 0.2 % (0-4); Lymphocytes # 2.5 K/mcL (0.6-4.6); Lymphocytes % 23.9 %; Mean Corpuscular HGB Conc 32.4 g/dL (31.6-35.5); Mean Corpuscular Hemoglobin 29.7 pg (28.0-33.3); Mean Corpuscular Volume 91.6 fL (83.0-100.0); Mean Platelet Volume 11.9 fL (9.4-12.4); Monocytes # 1.3 K/mcL (0.0-1.3); Monocytes % 12.8 %; Neutrophils # 6.3 K/mcL (1.6-8.9); Platelet Count 196 K/mcL (140-400); Red Blood Count 4.31 M/mcL (4.19-5.50); Red Cell Distribution Width 14.1 % (11.5-14.5); Segmented Neutrophils % 61.7 %; White Blood Count 10.2 K/mcL (4.3-11.1)
[2021-01-31 05:43] LABS: Calcium 9.2 mg/dL (8.6-10.3); Potassium 3.7 mEq/L (3.5-5.1)
[2021-01-31] MEDS: *HR* Heparin 5,000 UNIT/ML VIAL SQ SCH ×2 (06:27→17:59)
[2021-01-31] MEDS: BuPROPion XL (24 HR) 150 MG TABLET PO SCH (08:09)
[2021-01-31] MEDS: carvediloL 25 MG TABLET PO SCH ×2 (08:09→16:01)
[2021-01-31] MEDS: Aspirin Enteric Coated 81 MG Tablet PO SCH (08:10)
[2021-01-31] MEDS: *HR* OxyCODONE/APAP 5/325 TABLET PO PRN ×2 (08:15→14:04)
[2021-01-31] MEDS ORDERED: cefTRIAXone 1,000 MG in Water for inj. (sterile) 10 ML IVP SCH (09:00)
[2021-01-31] MEDS: Tiotropium 10 INH DOSE IH SCH (10:22)
[2021-01-31] MEDS: Budesonide/Formoterol 80/4.5 1 PUFF INH IH PRN (10:22)
[2021-01-31] MEDS ORDERED: Vancomycin 1,750 MG in 0.9 % Sodium Chloride 250 ML IVPB SCH (17:00)
[2021-01-31] MEDS ORDERED: Vancomycin 1,750 MG/517.5 ML IV.SOLN IVPB ONE (18:00)
[2021-01-31] MEDS ORDERED: Famotidine 20 MG TABLET PO SCH (21:00)
[2021-02-01] MEDS: Piperacillin/Tazobactam 3.375 GM in 0.9 % Sodium Chloride Mini Bag 100 ML IVPB SCH ×3 (00:28→16:29)
[2021-02-01] MEDS: hydrOXYzine pamoate 25 MG CAPSULE PO PRN (01:00)
[2021-02-01] MEDS: *HR* OxyCODONE/APAP 5/325 TABLET PO PRN ×5 (01:01→22:03)
[2021-02-01 02:17] LABS: Basophils % 0.5 %; Eosinophils # 0.2 K/mcL (0.0-0.6); Eosinophils % 2.3 %; Hematocrit 40.8 % (37.5-50.1); Immature Granulocytes % 0.3 % (0-4); Lymphocytes # 1.9 K/mcL (0.6-4.6); Mean Corpuscular HGB Conc 31.9 g/dL (31.6-35.5); Mean Corpuscular Hemoglobin 29.7 pg (28.0-33.3); Mean Corpuscular Volume 93.2 fL (83.0-100.0); Mean Platelet Volume 11.7 fL (9.4-12.4); Monocytes % 12.5 %; Neutrophils # 4.6 K/mcL (1.6-8.9); Platelet Count 202 K/mcL (140-400); Red Blood Count 4.38 M/mcL (4.19-5.50); Red Cell Distribution Width 14.2 % (11.5-14.5); Segmented Neutrophils % 59.4 %; White Blood Count 7.7 K/mcL (4.3-11.1)
[2021-02-01 02:34] LABS: Calcium 9.1 mg/dL (8.6-10.3); Potassium 4.4 mEq/L (3.5-5.1)
[2021-02-01] MEDS: *HR* Heparin 5,000 UNIT/ML VIAL SQ SCH ×2 (06:10→16:28)
[2021-02-01] MEDS ORDERED: Vancomycin 1,750 MG/517.5 ML IV.SOLN IVPB SCH (07:00)
[2021-02-01] MEDS: carvediloL 25 MG TABLET PO SCH ×2 (07:57→16:30)
[2021-02-01] MEDS: Gabapentin 100 MG CAPSULE PO SCH ×3 (07:57→22:04)
[2021-02-01] MEDS: BuPROPion XL (24 HR) 150 MG TABLET PO SCH (07:57)
[2021-02-01] MEDS: Aspirin Enteric Coated 81 MG Tablet PO SCH (07:57)
[2021-02-01] MEDS ORDERED: carvediloL 25 MG TABLET PO SCH (09:00)
[2021-02-01] MEDS: lisinopriL 5 MG TABLET PO SCH (09:35)
[2021-02-01] MEDS: Furosemide 40 MG TABLET PO SCH (09:35)
[2021-02-01] MEDS: Loratadine 10 MG TABLET PO SCH (09:35)
[2021-02-01] MEDS: hydrALAZINE 25 MG TABLET PO SCH ×3 (09:35→22:04)
[2021-02-01] MEDS ORDERED: Tiotropium 10 INH DOSE IH SCH (10:00)
[2021-02-01] MEDS: Budesonide/Formoterol 80/4.5 1 PUFF INH IH PRN (10:35)
[2021-02-01] MEDS: Tiotropium 10 INH DOSE IH SCH (10:35)
[2021-02-01] MEDS: Acetaminophen 325 MG TABLET PO PRN (14:31)
[2021-02-01] MEDS: Budesonide/Formoterol 80/4.5 1 PUFF INH IH SCH (19:14)
[2021-02-02] MEDS: Piperacillin/Tazobactam 3.375 GM in 0.9 % Sodium Chloride Mini Bag 100 ML IVPB SCH ×4 (00:14→23:10)
[2021-02-02 05:58] LABS: Calcium 9.2 mg/dL (8.6-10.3); Potassium 3.9 mEq/L (3.5-5.1)
[2021-02-02] MEDS: *HR* Heparin 5,000 UNIT/ML VIAL SQ SCH ×2 (06:25→16:16)
[2021-02-02] MEDS: *HR* OxyCODONE/APAP 5/325 TABLET PO PRN ×4 (06:26→23:17)
[2021-02-02] MEDS: Tiotropium 10 INH DOSE IH SCH (07:39)
[2021-02-02] MEDS: Budesonide/Formoterol 80/4.5 1 PUFF INH IH SCH ×2 (07:39→20:03)
[2021-02-02] MEDS: Gabapentin 100 MG CAPSULE PO SCH ×3 (08:09→19:24)
[2021-02-02] MEDS: lisinopriL 5 MG TABLET PO SCH (08:09)
[2021-02-02] MEDS: BuPROPion XL (24 HR) 150 MG TABLET PO SCH (08:09)
[2021-02-02] MEDS: carvediloL 25 MG TABLET PO SCH ×2 (08:09→16:16)
[2021-02-02] MEDS: Furosemide 40 MG TABLET PO SCH (08:09)
[2021-02-02] MEDS: Loratadine 10 MG TABLET PO SCH (08:09)
[2021-02-02] MEDS: Aspirin Enteric Coated 81 MG Tablet PO SCH (08:09)
[2021-02-02] MEDS: hydrALAZINE 25 MG TABLET PO SCH ×3 (08:09→19:24)
[2021-02-02] MEDS: Acetaminophen 325 MG TABLET PO PRN (08:40)
[2021-02-03] MEDS: *HR* Heparin 5,000 UNIT/ML VIAL SQ SCH ×2 (05:12→16:25)
[2021-02-03] MEDS: Tiotropium 10 INH DOSE IH SCH (07:53)
[2021-02-03] MEDS: Budesonide/Formoterol 80/4.5 1 PUFF INH IH SCH ×2 (07:54→20:22)
[2021-02-03] MEDS: *HR* OxyCODONE/APAP 5/325 TABLET PO PRN ×4 (08:23→21:16)
[2021-02-03] MEDS: Aspirin Enteric Coated 81 MG Tablet PO SCH (08:23)
[2021-02-03] MEDS: lisinopriL 5 MG TABLET PO SCH (08:24)
[2021-02-03] MEDS: Gabapentin 100 MG CAPSULE PO SCH ×3 (08:24→20:31)
[2021-02-03] MEDS: Loratadine 10 MG TABLET PO SCH (08:24)
[2021-02-03] MEDS: carvediloL 25 MG TABLET PO SCH ×2 (08:25→16:25)
[2021-02-03] MEDS: BuPROPion XL (24 HR) 150 MG TABLET PO SCH (08:26)
[2021-02-03] MEDS: hydrALAZINE 25 MG TABLET PO SCH ×3 (08:26→20:31)
[2021-02-03] MEDS: Furosemide 40 MG TABLET PO SCH (08:26)
[2021-02-03] MEDS: Piperacillin/Tazobactam 3.375 GM in 0.9 % Sodium Chloride Mini Bag 100 ML IVPB SCH ×3 (09:23→23:25)
[2021-02-03] MEDS ORDERED: Leptospermum Honey Paste 44 ML TUBE TP SCH (10:15)
[2021-02-04] MEDS: *HR* OxyCODONE/APAP 5/325 TABLET PO PRN ×5 (01:34→21:06)
[2021-02-04] MEDS: *HR* Heparin 5,000 UNIT/ML VIAL SQ SCH ×2 (05:03→18:23)
[2021-02-04] MEDS: Gabapentin 100 MG CAPSULE PO SCH ×3 (07:42→21:06)
[2021-02-04] MEDS: carvediloL 25 MG TABLET PO SCH ×2 (07:42→16:08)
[2021-02-04] MEDS: BuPROPion XL (24 HR) 150 MG TABLET PO SCH (07:42)
[2021-02-04] MEDS: hydrALAZINE 25 MG TABLET PO SCH ×3 (07:42→21:06)
[2021-02-04] MEDS: Aspirin Enteric Coated 81 MG Tablet PO SCH (07:42)
[2021-02-04] MEDS: Piperacillin/Tazobactam 3.375 GM in 0.9 % Sodium Chloride Mini Bag 100 ML IVPB SCH ×2 (07:43→16:08)
[2021-02-04] MEDS: Loratadine 10 MG TABLET PO SCH (07:43)
[2021-02-04] MEDS: lisinopriL 5 MG TABLET PO SCH (07:43)
[2021-02-04] MEDS: Furosemide 40 MG TABLET PO SCH (07:43)
[2021-02-04] MEDS: Tiotropium 10 INH DOSE IH SCH (08:31)
[2021-02-04] MEDS: Budesonide/Formoterol 80/4.5 1 PUFF INH IH SCH ×2 (08:32→20:40)
[2021-02-04 09:05] LABS: Calcium 9.4 mg/dL (8.6-10.3); Potassium 4.8 mEq/L (3.5-5.1)
[2021-02-05] MEDS: Piperacillin/Tazobactam 3.375 GM in 0.9 % Sodium Chloride Mini Bag 100 ML IVPB SCH ×2 (00:15→08:26)
[2021-02-05] MEDS: *HR* OxyCODONE/APAP 5/325 TABLET PO PRN ×4 (01:16→14:02)
[2021-02-05] MEDS: *HR* Heparin 5,000 UNIT/ML VIAL SQ SCH (05:37)
[2021-02-05] MEDS: Aspirin Enteric Coated 81 MG Tablet PO SCH (08:25)
[2021-02-05] MEDS: BuPROPion XL (24 HR) 150 MG TABLET PO SCH (08:25)
[2021-02-05] MEDS: Furosemide 40 MG TABLET PO SCH (08:26)
[2021-02-05] MEDS: Loratadine 10 MG TABLET PO SCH (08:26)
[2021-02-05] MEDS: hydrALAZINE 25 MG TABLET PO SCH (08:26)
[2021-02-05] MEDS: Gabapentin 100 MG CAPSULE PO SCH (08:26)
[2021-02-05] MEDS: carvediloL 25 MG TABLET PO SCH (08:26)
[2021-02-05] MEDS: lisinopriL 5 MG TABLET PO SCH (08:26)
[2021-02-05 10:32] VITALS: BP 161/76
[2021-02-05] MEDS: Tiotropium 10 INH DOSE IH SCH (11:15)
[2021-02-05] MEDS: Budesonide/Formoterol 80/4.5 1 PUFF INH IH SCH (11:15)
== END 2021-02-05 14:39 | disposition home health service (06) | DRG 603 ==
LOC: 3NENU → SUATTDRO 02-02 17:56
PROVIDERS: ADMIT Internal Medicine; ATTEND Internal Medicine

== ENCOUNTER 2022-03-07 15:40 | Inpatient (IN) ==
[2022-03-07 16:52] LABS: Basophils % 0.3 %; Eosinophils # 0.1 K/mcL (0.0-0.6); Eosinophils % 0.6 %; Hematocrit 42.3 % (37.5-50.1); Hemoglobin 13.9 g/dL (12.9-16.9); Immature Granulocytes % 0.3 % (0-4); Lymphocytes # 1.3 K/mcL (0.6-4.6); Lymphocytes % 10.3 %; Mean Corpuscular HGB Conc 32.9 g/dL (31.6-35.5); Mean Corpuscular Volume 91.4 fL (83.0-100.0); Mean Platelet Volume 11.9 fL (9.4-12.4); Monocytes # 0.8 K/mcL (0.0-1.3); Neutrophils # 10.5 K/mcL (1.6-8.9); Platelet Count 232 K/mcL (140-400); Red Blood Count 4.63 M/mcL (4.19-5.50); Red Cell Distribution Width 14.1 % (11.5-14.5); Segmented Neutrophils % 82.5 %; White Blood Count 12.8 K/mcL (4.3-11.1)
[2022-03-07] MEDS ORDERED: Aspirin 325 MG TABLET PO ONE (16:53)
[2022-03-07] MEDS: DilTIAZem 50 MG/50 ML IV.SOLN IVC SCH ×2 (17:04→23:30)
[2022-03-07 17:05] LABS: Activated Partial Thrombo Time 27.8 Seconds (26.0-36.0)
[2022-03-07 17:16] LABS: Calcium 9.5 mg/dL (8.6-10.3); Troponin I 0.31 ng/mL (< 0.04)
[2022-03-07] MEDS ORDERED: Morphine Sulfate 2 MG/ML SYRINGE IVP ONE (18:22)
[2022-03-07] MEDS ORDERED: *HR* Heparin 5,000 UNIT/ML VIAL IVP ONE (18:22)
[2022-03-07] MEDS ORDERED: *HR* Heparin 5,000 UNIT/ML VIAL IVP PRN ×2 (18:22)
[2022-03-07 18:29] LABS: Magnesium 1.9 mg/dL (1.6-2.6)
[2022-03-07] MEDS: Heparin 25,000UNIT/250ML 1/2NS 25,000 UNIT/250 ML IV.SOLN IVC SCH (19:27)
[2022-03-07 19:42] LABS: Heparin anti-factor XA UFH 0.57 IU/mL (0.30-0.70)
[2022-03-07 19:43] LABS: INR 1.1; Prothrombin Time 11.9 Seconds (9.4-12.1)
[2022-03-07] MEDS ORDERED: Acetaminophen 325 MG TABLET PO PRN (20:28)
[2022-03-07] MEDS ORDERED: Naloxone 0.4 MG/ML INJ IVP PRN (20:28)
[2022-03-07] MEDS ORDERED: Ondansetron 4 MG/2 ML VIAL IVP PRN (20:28)
[2022-03-07 20:32] LABS: Hematocrit 40.5 % (37.5-50.1); Mean Corpuscular HGB Conc 32.1 g/dL (31.6-35.5); Mean Corpuscular Hemoglobin 29.5 pg (28.0-33.3); Mean Corpuscular Volume 91.8 fL (83.0-100.0); Mean Platelet Volume 11.6 fL (9.4-12.4); Platelet Count 201 K/mcL (140-400); Red Blood Count 4.41 M/mcL (4.19-5.50); Red Cell Distribution Width 14.2 % (11.5-14.5); White Blood Count 12.4 K/mcL (4.3-11.1)
[2022-03-07] MEDS ORDERED: Ipratropium/Albuterol Neb 3 ML IH PRN (20:32)
[2022-03-07] MEDS ORDERED: Perflutren Lipid Microsphere 1.3 ML in 0.9 % Sodium Chloride 8.7 ML IVP PRN (20:33)
[2022-03-07] MEDS ORDERED: 0.9 % Sodium Chloride 1,000 ML IV ONE (20:44)
[2022-03-07 23:34] LABS: Bilirubin,Urine Negative (Negative); Blood,Urine Negative (Negative); Clarity,Urine Clear (Clear); Color,Urine Light-Yellow (Yellow); Glucose,Urine (UA) Normal (Normal); Ketones,Urine Negative (Negative); Leukocyte Esterase,Urine Negative (Negative); Nitrite,Urine Negative (Negative); Protein,Urine Trace mg/dL (Neg-Trace); Specific Gravity,Urine 1.024 (1.010-1.025); Urobilinogen,Urine Normal (Normal)
[2022-03-08 02:05] LABS: Basophils % 0.4 %; Eosinophils # 0.1 K/mcL (0.0-0.6); Eosinophils % 0.8 %; Hemoglobin 12.2 g/dL (12.9-16.9); Immature Granulocytes % 0.2 % (0-4); Lymphocytes # 2.5 K/mcL (0.6-4.6); Lymphocytes % 24.9 %; Mean Corpuscular HGB Conc 31.3 g/dL (31.6-35.5); Mean Corpuscular Hemoglobin 29.6 pg (28.0-33.3); Mean Corpuscular Volume 94.7 fL (83.0-100.0); Mean Platelet Volume 11.8 fL (9.4-12.4); Monocytes # 0.9 K/mcL (0.0-1.3); Monocytes % 8.6 %; Neutrophils # 6.5 K/mcL (1.6-8.9); Platelet Count 184 K/mcL (140-400); Red Blood Count 4.12 M/mcL (4.19-5.50); Red Cell Distribution Width 14.3 % (11.5-14.5); Segmented Neutrophils % 65.1 %; White Blood Count 9.9 K/mcL (4.3-11.1)
[2022-03-08 02:18] LABS: Prothrombin Time 11.5 Seconds (9.4-12.1)
[2022-03-08 02:24] LABS: Albumin 3.6 g/dL (3.5-5.7); Albumin/Globulin Ratio 1.2 (1.1-2.2); Bilirubin,Direct 0.1 mg/dL (0.0-0.2); Bilirubin,Indirect 0.4 mg/dL (0.0-1.0); Bilirubin,Total 0.5 mg/dL (0.3-1.0); Calcium 8.5 mg/dL (8.6-10.3); Chol/HDL Ratio 2.8 (0-4.9); Globulin 2.9 g/dL (2.4-3.5); Magnesium 1.9 mg/dL (1.6-2.6); Phosphorous 2.8 mg/dL (2.7-4.5); Potassium 3.7 mEq/L (3.5-5.1); Total Protein 6.5 g/dL (6.4-8.9)
[2022-03-08 02:37] LABS: Thyroid Stimulating Hormone 4.376 mcIU/mL (0.340-5.600)
[2022-03-08 03:25] LABS: Estimated Average Glucose 126 mg/dl
[2022-03-08] MEDS: 0.9 % Sodium Chloride 1,000 ML IVC SCH ×2 (07:45→19:04)
[2022-03-08] MEDS ORDERED: Nitroglycerin 0.4 MG TAB.SUBL SL ONE (08:28)
[2022-03-08] MEDS ORDERED: Morphine Sulfate 2 MG/ML SYRINGE IVP ONE (08:48)
[2022-03-08] MEDS: lisinopriL 5 MG TABLET PO SCH (08:56)
[2022-03-08] MEDS: hydrALAZINE 25 MG TABLET PO SCH ×3 (08:56→20:25)
[2022-03-08] MEDS: Furosemide 40 MG TABLET PO SCH (08:56)
[2022-03-08] MEDS: carvediloL 25 MG TABLET PO SCH ×2 (08:56→20:25)
[2022-03-08] MEDS: Loratadine 10 MG TABLET PO SCH (08:56)
[2022-03-08] MEDS: Aspirin Enteric Coated 81 MG Tablet PO SCH (08:56)
[2022-03-08] MEDS: BuPROPion XL (24 HR) 150 MG TABLET PO SCH (08:58)
[2022-03-08] MEDS ORDERED: 0.9 % Sodium Chloride 2,000 ML ONE (10:59)
[2022-03-08] MEDS ORDERED: Heparin 1,000 UNITS/500 mL 500 ML ONE (10:59)
[2022-03-08] MEDS ORDERED: Nitroglycerin 1,000 MCG/5 ML VIAL IV ONE (10:59)
[2022-03-08] MEDS ORDERED: *HR* Heparin 10,000 UNIT/10 ML VIAL ONE (10:59)
[2022-03-08] MEDS ORDERED: Iopamidol - 370 200 ML INFUS..BTL ONE (10:59)
[2022-03-08] MEDS ORDERED: *HR* Midazolam HCl 2 MG/2 ML VIAL ONE (11:42)
[2022-03-08] MEDS ORDERED: *HR* FentaNYL (PF) 100 MCG/2 ML VIAL ONE (11:42)
[2022-03-08] MEDS: Isosorbide MONOnitrate (24 HR) 30 MG TAB.ER.24H PO SCH (14:20)
[2022-03-09] MEDS: Heparin 25,000UNIT/250ML 1/2NS 25,000 UNIT/250 ML IV.SOLN IVC SCH (01:08)
[2022-03-09 02:38] LABS: Basophils # 0.1 K/mcL (0.0-0.2); Basophils % 0.5 %; Eosinophils # 0.1 K/mcL (0.0-0.6); Hematocrit 39.4 % (37.5-50.1); Hemoglobin 12.7 g/dL (12.9-16.9); Immature Granulocytes % 0.3 % (0-4); Lymphocytes % 19.6 %; Mean Corpuscular HGB Conc 32.2 g/dL (31.6-35.5); Mean Corpuscular Hemoglobin 29.7 pg (28.0-33.3); Mean Corpuscular Volume 92.3 fL (83.0-100.0); Mean Platelet Volume 11.7 fL (9.4-12.4); Monocytes # 0.9 K/mcL (0.0-1.3); Monocytes % 8.5 %; Platelet Count 189 K/mcL (140-400); Red Blood Count 4.27 M/mcL (4.19-5.50); Red Cell Distribution Width 14.5 % (11.5-14.5); Segmented Neutrophils % 70.1 %
[2022-03-09 02:54] LABS: Calcium 8.5 mg/dL (8.6-10.3); Magnesium 1.7 mg/dL (1.6-2.6)
[2022-03-09] MEDS: carvediloL 25 MG TABLET PO SCH (09:48)
[2022-03-09] MEDS: hydrALAZINE 25 MG TABLET PO SCH (09:48)
[2022-03-09] MEDS: Isosorbide MONOnitrate (24 HR) 30 MG TAB.ER.24H PO SCH (09:49)
[2022-03-09] MEDS: lisinopriL 5 MG TABLET PO SCH (09:49)
[2022-03-09] MEDS: Loratadine 10 MG TABLET PO SCH (09:50)
[2022-03-09] MEDS: Aspirin Enteric Coated 81 MG Tablet PO SCH (09:50)
[2022-03-09] MEDS: Furosemide 40 MG TABLET PO SCH (09:50)
[2022-03-09] MEDS: BuPROPion XL (24 HR) 150 MG TABLET PO SCH (09:55)
[2022-03-09 12:05] VITALS: BP 144/78; PULSE 74; TEMP 98.4; O2SAT 94
[2022-03-09] MEDS ORDERED: Apixaban 5 MG TABLET PO SCH (12:30)
[2022-03-09] MEDS ORDERED: *HR* Rivaroxaban 10 MG TABLET PO SCH (17:00)
== END 2022-03-09 15:20 | disposition home or self-care (01) | DRG 282 ==
LOC: EMEROOARM 15:40 → 3NENU 15:40 → SUATTDRO 21:12 → 3NENU 22:14 → SUATTDRO 03-08 17:10
PROVIDERS: ADMIT Internal Medicine; ATTEND Family Medicine